=== PATIENT | male | born 1955 | race African-American/Black ===

== ENCOUNTER 2017-11-17 16:05 | Emergency (ER) | payer BC ==
[2017-11-17 16:21] VITALS: BP 151/101
--- NOTE | 2017-11-17 16:35 | ER Document Report ---
ED Medical Screen (RME) - General TRAVEL OUTSIDE OF THE [place] IN LAST 30 DAYS: No <IGNACIO PÉREZ - Last Filed: 11/17/17 16:34> <PRAVEENA LINDSEY V - Last Filed: 11/17/17 19:01> - General Chief Complaint: Head Injury without LOC Stated Complaint: HEAD INJURY Time Seen by Provider: 11/17/17 16:31 Notes: This 62-year-old male patient got EtOH intoxicated, fell onto concrete striking his right forehead. He has a crush laceration that needs cleaning and suturing. He is not on blood thinners by history. I have greeted and performed a rapid initial assessment of this patient. A comprehensive ED assessment and evaluation of the patient, analysis of test results and completion of the medical decision making process will be conducted by additional ED providers. (IGNACIO PÉREZ) 62-year-old with past medical history of alcohol abuse presented today for evaluation of a fall as well as closed head injury with notable right scalp laceration. Patient appears to be intoxicated. Patient is cooperative. Patient denies any vomiting, focal upper or lower extremity weakness, fevers or chills. Patient has notable scalp laceration with arterial bleeding. (PRAVEENA LINDSEY V) - Related Data Allergies/Adverse Reactions: No Known Allergies Allergy (Verified 11/17/17 16:06) Past Medical History - Immunizations Hx Diphtheria, Pertussis, Tetanus Vaccination: Yes <IGNACIO PÉREZ - Last Filed: 11/17/17 16:34> Review of Systems <IGNACIO PÉREZ - Last Filed: 11/17/17 16:34> <PRAVEENA LINDSEY V - Last Filed: 11/17/17 19:01> - Review of Systems Notes: Unable to obtain full review of systems secondary to patient's clinical intoxication Patient denied any vomiting fevers or chills,chest pain or shortness of breath ( PRAVEENA LINDSEY V) Physical Exam <IGNACIO PÉREZ - Last Filed: 11/17/17 16:34> <PRAVEENA LINDSEY V - Last Filed: 11/17/17 19:01> - Vital signs Vitals: Temp Pulse Resp BP Pulse Ox 97.7 F 105 H 20 151/101 H 96 11/17/17 16:18 11/17/17 16:18 11/17/17 16:18 11/17/17 16:18 11/17/17 16:18 - Notes Notes: Reviewed vital signs and nursing note as charted by RN. CONSTITUTIONAL: Alert HEAD: Normocephalic; patient has multiple superficial abrasions of his scalp, patient has 5 cm laceration localized to the right frontoparietal area, laceration is approximately 1 cm deep with arterial injury EYES: PERRL ENT: normal nose NECK: Supple without meningismus CARD: Regular rate and rhythm; no murmurs, no clicks, no rubs, no gallops; symmetric distal pulses RESP: Normal chest excursion without splinting or tachypnea; breath sounds clear and equal bilaterally ABD/GI: Normal bowel sounds; non-distended; soft, BACK: The back appears normal and is non-tender to palpation EXT: Normal ROM in all joints; non-tender to palpation; no cyanosis, no effusions, no edema SKIN: Normal color for age and race; warm; dry; good turgor; capillary refill < 2 seconds; no acute lesions noted NEURO: No focal deficits, patient able to move upper lower extremity bilaterally PSYCH: Smells of alcohol, appears to be intoxicated but appropriate (PRAVEENA LINDSEY V) Course <IGNACIO PÉREZ - Last Filed: 11/17/17 16:34> <PRAVEENA LINDSEY V - Last Filed: 11/17/17 19:01> - Re-evaluation Re-evalutation: Patient with acute alcohol intoxication as well as scalp laceration CT scan did not reveal any acute intracranial injury or subdural hematoma Patient refused tetanus shot, bleeding was controlled with Vicryl sutures Laceration was repaired with al, please see procedure note Patient was discharged with family and was given instructions to come back for staple removal (PRAVEENA LINDSEY V) - Vital Signs Vital signs: Temp Pulse Resp BP Pulse Ox 97.7 F 105 H 20 151/101 H 96 11/17/17 16:18 11/17/17 16:18 11/17/17 16:18 11/17/17 16:18 11/17/17 16:18 Procedures - Laceration/Wound Repair Right Head Time completed: 18:00 Wound length (cm): 5 Wound's Depth, Shape: Into muscle, Contused tissue Laceration pre-procedure: Sterile PPE donned, Chloraprep applied, Sterile drapes applied, Shur-Clens applied Anesthetic type: 1% Lidocaine w/epi Volume Anesthetic (mLs): 10 Wound explored: Clean, No foreign body removed Wound Debrided: Moderate Wound Repaired With: Sutures, [place] Number of Sutures: 7 Layer Closure?: Yes Deep Layer Suture Size/Type: 3:0, Other Post-procedure wound care: Sterile dressing applied Post-procedure NV exam normal: Yes - normal Complications: No <PRAVEENA LINDSEY V - Last Filed: 11/17/17 19:01> Doctor's Discharge <IGNACIO PÉREZ - Last Filed: 11/17/17 16:34> <PRAVEENA LINDSEY V - Last Filed: 11/17/17 19:01> - Discharge Clinical Impression: Alcohol intoxication, Closed head injury, Scalp laceration Condition: Stable Disposition: HOME, SELF-CARE Instructions: Laceration Care ([facility]) Additional Instructions: You have been diagnosed with closed head injury as well as laceration of your scalp You have sevenths al placed in your scalp, please come back in 7-10 days for staple removal You can apply antibiotic to the cut every day You can also wash your scalp with soap and water, do not soak it please Come back if you have worsening fevers, chills, nausea vomiting, severe headache Prescriptions: Bacitracin 1 applic TP DAILY PRN #1 pkg PRN Reason:
--- NOTE | 2017-11-17 16:58 | RADIOLOGY REPORT (SQ) ---
EXAM DESCRIPTION: CT HEAD WITHOUT COMPLETED DATE/TIME: 11/17/2017 4:47 pm REASON FOR STUDY: ETOH, fall, head contusion/laceration COMPARISON: April 2015 TECHNIQUE: Axial images acquired through the brain without intravenous contrast. Images reviewed wi th bone, brain and subdural windows. Additional sagittal and coronal reconstructions were generated. Images stored on PACS. All CT scanners at this facility use dose modulation, iterative reconstruction, and/or weight based d osing when appropriate to reduce radiation dose to as low as reasonably achievable (ALARA). [facility]: Dose Right [facility]: CareDose [facility]: Dose Right [facility]: Teradose 4D [facility]: [employer] RADIATION DOSE: CT Rad equipment meets quality standard of care and radiation dose reduction techniq ues were employed. CTDIvol: 67.0 mGy. DLP: 1182 mGy-cm. mGy. LIMITATIONS: None. FINDINGS: VENTRICLES: Normal size and contour. CEREBRUM: No masses. No hemorrhage. No midline shift. No evidence for acute infarction. Normal gra y/white matter differentiation. No areas of low density in the white matter. CEREBELLUM: No masses. No hemorrhage. No alteration of density. No evidence for acute infarction. EXTRAAXIAL SPACES: No fluid collections. No masses. ORBITS AND GLOBE: No intra- or extraconal masses. Normal contour of globe without masses. CALVARIUM: No fracture. PARANASAL SINUSES: No fluid or mucosal thickening. SOFT TISSUES: No mass or hematoma. OTHER: No other significant finding. IMPRESSION: NORMAL BRAIN CT WITHOUT CONTRAST. EVIDENCE OF ACUTE STROKE: NO. COMMENT: Quality ID # [id number]: Final reports with documentation of one or more dose reduction techniques (e.g., Automated exposure control, adjustment of the mA and/or kV according to patient size, use of iterative reconstruction technique) TECHNICAL DOCUMENTATION: JOB ID: [id number] [employer]- All Rights Reserved Reading location - IP/workstation name: [email or web address]
[2017-11-17] MEDS ORDERED: DIPH/PERTUSS(ACELL)/TETANUS VAC/PF 0.5 ML SYR (>=10YO) IM ONE (17:11)
[2017-11-17] MEDS ORDERED: LIDOCAINE 1%/EPINEPHRINE INJ 20 ML VIAL INJ ONE (17:25)
== END 2017-11-17 18:06 | disposition home or self-care (01) ==
LOC: ER 16:05
PROC: 0HQ0XZZ Repair Scalp Skin, External Approach (ICD-10-PCS; principal; 2017-11-17)
DX: S01.01XA Laceration without foreign body of scalp, initial encounter (principal); S09.90XA Unspecified injury of head, initial encounter; F10.120 Alcohol abuse with intoxication, uncomplicated; W19.XXXA Unspecified fall, initial encounter
CPT/HCPCS: 99283; 70450; 12002; J3490

== ENCOUNTER 2019-06-27 07:02 | Day surgery (SDC) | payer MEDICARE, BC ==
[~2019-06-27 07:02] MED LIST: FENTANYL CITRATE INJ/PF 100 MCG/2 ML AMPUL ONE; KETOROLAC TROMETHAMINE 0.45% 4 DROP/0.4 ML DROPERETTE OD PRN; MIDAZOLAM 2 MG/2 ML INJ ONE
[2019-06-27] MEDS ORDERED: EPINEPHRINE INJ/PF 1 MG/1 ML AMPULE ONE (07:09)
[2019-06-27] MEDS ORDERED: LIDOCAINE 1%/PHENYLEPHRINE 1.5% 1 ML VIAL ONE (07:09)
[2019-06-27] MEDS ORDERED: CHONDR SU A NA/HYALUR INTRAOC KIT (SURGICARE) ONE (07:09)
[2019-06-27] MEDS: TETRACAINE HCL 0.5% OPH SOLN 4 ML OD PRN ×3 (07:15→07:52)
[2019-06-27] MEDS: TROPICAMIDE 1% OPH SOLN 15 ML OD PRN ×3 (07:15→07:35)
[2019-06-27] MEDS: CYCLOPENTOLATE 0.2%/PHENYLEPHRINE 1% OPH SOLN 2 ML OD PRN ×3 (07:15→07:35)
[2019-06-27] MEDS: BESIFLOXACIN HCL 0.6% OPH SUSP 5 ML BOTTLE OD PRN ×4 (07:15→08:16)
[2019-06-27] MEDS: DORZOLAMIDE HCL 2%/TIMOLOL MALEAT 0.5% OPH SOLN 10 ML OD PRN ×2 (08:03→08:16)
--- NOTE | 2019-06-27 13:29 | Operative Report ---
Operative Report-[facility] Operative Report: DATE OF SURGERY: 06/27/2019 PREOPERATIVE DIAGNOSIS: Cataract, right eye POSTOPERATIVE DIAGNOSIS: Cataract, right eye OPERATION: Cataract extraction with insertion of an IOL of the right eye. Intraocular Lens Model: [23.0 sn60wf] Reason for surgery was difficulty seeing words on the television SURGEON: Lonnie Hoyt MD ANESTHESIA: Topical PROCEDURE: After obtaining appropriate consent, the patient's right eye was prepped and draped in a sterile fashion as well as the surgeon in the sterile manner and cataract surgery was started. First a paracentesis blade was used to make a side-port incision. Viscoelastic was used to inflate the anterior chamber. Next a 2.4 mm incision was made with a 2.4 mm blade, clear corneal temporarily. A continuous capsulorrhexis was made using a cystotome and Utrata forceps. Following this hydrodissection was carried out to make the kam fully loose and mobile and it was rotated. Following this, a divide and conquer technique was used to phacoemulsify the kam. The remaining cortex was removed with an irrigation/aspiration. Provisc was instilled into the capsular bag to inflate the bag. The intraocular lens was placed. The remaining viscoelastic material was removed with irrigation/aspiration. Following this, the incision was found to be watertight. Besivance and Cosopt was instilled into the eye and a protective shield was placed over the eye. The patient was reurned to the postoperative recovery in a stable condition.
== END 2019-06-27 08:58 | disposition home or self-care (01) ==
LOC: SC 07:02
PROVIDERS: ATTEND Internal Medicine
DX: H25.811 Combined forms of age-related cataract, right eye (principal); H40.1113 Primary open-angle glaucoma, right eye, severe stage; H44.512 Absolute glaucoma, left eye; H52.4 Presbyopia; E78.00 Pure hypercholesterolemia, unspecified; E03.9 Hypothyroidism, unspecified
CPT/HCPCS: 66984; 00142; V2632; J2250; J3490 ×2; A9270; J0171; J3010; J2370; 142

== ENCOUNTER 2019-12-23 11:48 | Inpatient (IN) | payer MEDICARE, BC ==
[2019-12-23] MEDS ORDERED: LORAZEPAM INJ 2 MG/1 ML VIAL IV ONE ×2 (12:03→16:42)
[2019-12-23 12:05] LABS: ABSOLUTE BASOPHILS # (AUTO) 0.1 10^3/uL (0.0-0.2); ABSOLUTE EOSINOPHILS # (AUTO) 0.2 10^3/uL (0.0-0.6); ABSOLUTE LYMPHOCYTES (AUTO) 5.6 10^3/uL (0.5-4.7); ABSOLUTE MONOCYTES (AUTO) 0.9 10^3/uL (0.1-1.4); ABSOLUTE NEUT (AUTO) 6.4 10^3/uL (1.7-8.2); BASOPHILS % (AUTO) 0.5 % (0-2); EOSINOPHILS % (AUTO) 1.7 % (0-6); HEMOGLOBIN 15.5 g/dL (13.5-17.0); LYMPHOCYTES % (AUTO) 42.4 % (13-45); MEAN CORPUSCULAR HGB CONC 33.7 g/dL (32.0-36.0); MEAN CORPUSCULAR VOLUME 101 fl (80-97); MONOCYTES % (AUTO) 6.6 % (3-13); PLATELET COUNT 218 10^3/uL (150-450); RED BLOOD COUNT 4.55 10^6/uL (4.35-5.55); RED CELL DISTRIBUTION WIDTH 16.3 % (11.5-14.0); SEGMENTED NEUTROPHILS % (AUTO) 48.8 % (42-78); TOTAL CELLS COUNTED % (AUTO) 100 %; WHITE BLOOD COUNT 13.1 10^3/uL (4.0-10.5)
[2019-12-23 12:25] LABS: ALBUMIN 4.8 g/dL (3.5-5.0); ALKALINE PHOSPHATASE 146 U/L (38-126); ASPARTATE AMINO TRANSFERASE 203 U/L (17-59); BILIRUBIN,DIRECT 0.2 mg/dL (0.0-0.4); BLOOD UREA NITROGEN 9 mg/dL (7-20); CALCIUM 9.8 mg/dL (8.4-10.2); GLUCOSE 108 mg/dL (75-110); TOTAL PROTEIN 8.7 g/dL (6.3-8.2)
[2019-12-23 12:29] LABS: CARBON DIOXIDE 14 mmol/L (22-30); CHLORIDE 103 mmol/L (98-107)
[2019-12-23] MEDS ORDERED: NORMAL SALINE 500 ML IV ONE (12:32)
[2019-12-23 12:33] LABS: ALCOHOL < 10 mg/dL (NONE DETECTED)
--- NOTE | 2019-12-23 12:39 | RADIOLOGY REPORT (SQ) ---
EXAM DESCRIPTION: CT HEAD WITHOUT IMAGES COMPLETED DATE/TIME: 12/23/2019 12:29 pm REASON FOR STUDY: Seizure COMPARISON: 11/17/2017 TECHNIQUE: Axial images acquired through the brain without intravenous contrast. Images reviewed wi th bone, brain and subdural windows. Additional sagittal and coronal reconstructions were generated. Images stored on PACS. All CT scanners at this facility use dose modulation, iterative reconstruction, and/or weight based d osing when appropriate to reduce radiation dose to as low as reasonably achievable (ALARA). [facility]: Dose Right [facility]: CareDose [facility]: Dose Right [facility]: Teradose 4D [facility]: [employer] RADIATION DOSE: CT Rad equipment meets quality standard of care and radiation dose reduction techniq ues were employed. CTDIvol: 53.2 mGy. DLP: 1097 mGy-cm. mGy. LIMITATIONS: None. FINDINGS: VENTRICLES: Normal size and contour. CEREBRUM: No masses. No hemorrhage. No midline shift. No evidence for acute infarction. Normal gra y/white matter differentiation. No areas of low density in the white matter. CEREBELLUM: No masses. No hemorrhage. No alteration of density. No evidence for acute infarction. EXTRAAXIAL SPACES: No fluid collections. No masses. ORBITS AND GLOBE: No intra- or extraconal masses. Normal contour of globe without masses. CALVARIUM: No fracture. PARANASAL SINUSES: No fluid or mucosal thickening. SOFT TISSUES: No mass or hematoma. OTHER: No other significant finding. IMPRESSION: NORMAL BRAIN CT WITHOUT CONTRAST. EVIDENCE OF ACUTE STROKE: NO. COMMENT: Quality ID # [id number]: Final reports with documentation of one or more dose reduction techniques (e.g., Automated exposure control, adjustment of the mA and/or kV according to patient size, use of iterative reconstruction technique) TECHNICAL DOCUMENTATION: JOB ID: [id number] 2010 [employer]- All Rights Reserved Reading location - IP/workstation name: [email or web address]
[2019-12-23 12:53] LABS: ANION GAP 25 (5-19)
--- NOTE | 2019-12-23 13:53 | ER Document Report ---
ED General - General Mode of Arrival: Medic Information source: Relative TRAVEL OUTSIDE OF THE [place] IN LAST 30 DAYS: No <SUNI VALDIVIA - Last Filed: 12/23/19 14:48> <DIONISIOZAYCARMELA - Last Filed: 12/23/19 16:54> - General Chief Complaint: Seizure Stated Complaint: POSSIBLE SEIZURE Primary Care Provider: NILTON SARKAR MD [Primary Care Provider] - Follow up as needed Notes: 64-year-old man presents to the emergency department with a history of riding in the car with his daughter this morning, according to her he stared and then became poorly responsive would not answer her questions and had episode of what appeared to be a seizure. She notes that his eyes was rolled back in his head his teeth were clenched and he had some shaking. No history of seizure disorder, apparently has been a heavy drinker according to the daughter. Upon presentation to the emergency department he was confused and uncooperative. (SUNI VALDIVIA) - Related Data Allergies/Adverse Reactions: No Known Allergies Allergy (Verified 11/17/17 16:06) Past Medical History - Social History Smoking Status: Former Smoker Chew tobacco use (# tins/day): No Frequency of alcohol use: Social Drug Abuse: None Family History: Reviewed & Not Pertinent Patient has homicidal ideation: No - Past Medical History Cardiac Medical History: Denies: Hx Heart Attack, Hx Hypertension Pulmonary Medical History: Denies: Hx Asthma Neurological Medical History: Denies: Hx Cerebrovascular Accident, Hx Seizures Renal/ Medical History: Denies: Hx Peritoneal Dialysis GI Medical History: Denies: Hx Hepatitis, Hx Hiatal Hernia, Hx Ulcer Infectious Medical History: Denies: Hx Hepatitis Past Surgical History: Denies: Hx Open Heart Surgery, Hx Pacemaker - Immunizations Hx Diphtheria, Pertussis, Tetanus Vaccination: Yes <SUNI VALDIVIA - Last Filed: 12/23/19 14:48> Review of Systems <SUNI VALDIVIA - Last Filed: 12/23/19 14:48> - Review of Systems Notes: Constitutional: Denies pain. HENT: Negative for sore throat. Eyes: Negative for visual changes. Cardiovascular: Negative for chest pain. Respiratory: Negative for shortness of breath. Gastrointestinal: Negative for abdominal pain, vomiting or diarrhea. Genitourinary: Negative for dysuria. Musculoskeletal: Negative for back pain. Skin: Negative for rash. Neurological: Negative for headaches, weakness or numbness. 10 point ROS negative except as marked above and in HPI. (SUNI VALDIVIA) Physical Exam <SUNI VALDIVIA - Last Filed: 12/23/19 14:48> - Vital signs Vitals: Resp Pulse Ox 18 99 12/23/19 11:52 12/23/19 11:52 - Notes Notes: PHYSICAL EXAMINATION: Physical Exam: General: Well-nourished well-developed 64-year-old man in no acute distress HEENT: NC/AT, pupils equal round and reactive to light, MM moist,nares clear, oropharynx clear, airway patent Neck: supple, no adenopathy, no masses. Good range of motion Lungs: clear, no wheezing, no rales no rhonchi CVS: Tachycardic r rate and rhythm no murmur gallop or rub Abdomen: Soft, active, nontender, no masses, no hepatosplenomegaly Ext: No edema, clubbing or cyanosis. Neuro: Alert and responsive, moving all 4 extremities on command, cranial nerves intact, no focal findings, some confusion (unable to name the president) Skin: Intact no open lesions, no rash PSYCH: Normal mood, normal affect. (SUNI VALDIVIA) Course - Laboratory Result Diagrams: 12/23/19 11:50 12/23/19 11:50 - Diagnostic Test Radiology reviewed: Image reviewed, Reports reviewed - CT scan of the head noncontrast: No acute intracranial findings. - EKG Interpretation by Ma EKG shows normal: Sinus rhythm - Sinus tachycardia with a left axis deviation, no acute ST or T wave abnormalities noted. <SUNI VALDIVIA - Last Filed: 12/23/19 14:48> - Laboratory Result Diagrams: 12/23/19 11:50 12/23/19 11:50 <CARMELA MCNULTY - Last Filed: 12/23/19 16:54> - Re-evaluation Re-evalutation: 12/23/19 14:49 Patient has improved and much more alert and responsive, states that he wants to eat. Still a little unsteady on his feet however significantly improved, cerebellar testing normal. I discussed the patient with the daughter on a second occasion and mentioned that this may be alcohol withdrawal related seizures. She does not feel that he could manage medications and will drink while taking them. I have explained to her that he may be sent home if everything is negative and he is back to his baseline. (SUNI VALDIVIA) 12/23/19 16:52 Patient seen and examined. Care of this patient was turned over to me by Dr. Valdivia. In short, the patient had a seizure. He is continued to be confused. The patient is cooperative, but very confused. He is oriented to place and time, but still remains confused, uses inappropriate words, does not recognize visual stimuli easily. Patient was given further Ativan, he remains hypertensive and tachycardic. I strongly suspect on alcohol withdrawal related seizure. He has not returned to baseline. I spoke with Dr. Ramey, she will admit the patient for further care. (CARMELA MCNULTY) - Vital Signs Vital signs: Temp Pulse Resp BP Pulse Ox 98.8 F 22 H 169/94 H 98 12/23/19 12:00 12/23/19 16:01 12/23/19 16:01 12/23/19 14:01 - Laboratory Laboratory results interpreted by pa: 12/23/19 12/23/19 12/23/19 11:45 11:50 11:50 WBC 13.1 H MCV 101 H MCH 34.0 H RDW 16.3 H Absolute Lymphs (auto) 5.6 H Carbon Dioxide 14 L Anion Gap 25 H POC Glucose 118 H AST 203 H ALT 75 H Alkaline Phosphatase 146 H Total Protein 8.7 H Urine Protein Urine Ketones Urine Ascorbic Acid 12/23/19 13:51 WBC MCV MCH RDW Absolute Lymphs (auto) Carbon Dioxide Anion Gap POC Glucose AST ALT Alkaline Phosphatase Total Protein Urine Protein 100 H Urine Ketones 20 H Urine Ascorbic Acid 40 H 12/23/19 13:55 I have reviewed laboratory data and used this information for the treatment decisions regarding the patient. (SUNI VALDIVIA) - Diagnostic Test Radiology results interpreted by me: 12/23/19 16:[address] 12/23/19 11:51 IMPRESSION: NORMAL BRAIN CT WITHOUT CONTRAST. EVIDENCE OF ACUTE STROKE: NO. (CARMELA MCNULTY) Discharge <SUNI VALDIVIA - Last Filed: 12/23/19 14:48> - Discharge Admitting Provider: Karoline (Hospitalist) Unit Admitted: [facility] <FRIES,LUNDYN M - Last Filed: 12/23/19 16:54> - Discharge Clinical Impression: Seizure Alcohol dependence Qualifiers: Complication of substance-induced condition: with unspecified complication Altered mental status Qualifiers: Coma depth: Letty coma 13-15 Condition: Stable Disposition: ADMITTED INPATIENT Referrals: NILTON SARKAR MD [Primary Care Provider] - Follow up as needed
--- NOTE | 2019-12-23 14:19 | EKG REPORT ---
SEVERITY:- OTHERWISE NORMAL ECG - SINUS TACHYCARDIA LEFT AXIS DEVIATION : Confirmed by: Sharita Jarvis MD 23-Dec-2019 14:19:02
[2019-12-23 14:33] LABS: APPEARANCE,URINE SLIGHTLY-CLOUDY; BILIRUBIN,URINE NEGATIVE (NEGATIVE); COLOR,URINE AMBER; GLUCOSE, URINE NEGATIVE (NEGATIVE); KETONES,URINE 20 mg/dL (NEGATIVE); LEUKOCYTE ESTERASE,URINE NEGATIVE (NEGATIVE); NITRITE,URINE NEGATIVE (NEGATIVE); PROTEIN,URINE 100 mg/dL (NEGATIVE); URINE SPECIFIC GRAVITY 1.021; UROBILINOGEN,URINE NEGATIVE mg/dL (<2.0)
[2019-12-23] MEDS ORDERED: NORMAL SALINE 1000 ML 1,000 ML IV ONE (14:53)
[2019-12-23 15:26] LABS: URINE AMPHETAMINES SCREEN NEGATIVE; URINE BARBITURATES SCREEN NEGATIVE; URINE BENZODIAZEPINES SCREEN NEGATIVE; URINE COCAINE SCREEN NEGATIVE; URINE MARIJUANA (THC) SCREEN NEGATIVE; URINE METHADONE SCREEN NEGATIVE; URINE PHENCYCLIDINE SCREEN NEGATIVE
[2019-12-23] MEDS ORDERED: IPRATROPIUM/ALBUTEROL 0.5-2.5 MG/3 ML AMPUL NEB PRN (17:36)
[2019-12-23] MEDS ORDERED: NORMAL SALINE 1000 ML 1,000 ML IV PRN (17:36)
[2019-12-23] MEDS ORDERED: ACETAMINOPHEN 325 MG TABLET PO PRN (17:36)
[2019-12-23] MEDS ORDERED: ONDANSETRON 4 MG TAB.RAPDIS PO PRN (17:36)
[2019-12-23] MEDS ORDERED: OXYCODONE-ACETAMINOPHEN 5-325 MG TABLET PO PRN (17:36)
--- NOTE | 2019-12-23 17:36 | PDOC H&P ---
History of Present Illness Admission Date/PCP: NILTON SARKAR MD Patient complains of: Patient brought to the emergency room apparently after becoming poorly responsive with questionable seizure. This allegedly alcohol in the car today. The daughter described his as patient shaking and eyes rolled back with teeth chattering. History of Present Illness: LIBRA ALTAMIRANO is a 64 year old male Please note this information is obtained from the computer records, ED physician's note. Patient is unable to provide any history as he is confused and confabulating stories. He is unable to tell me why he is here in fact is unable to tell me where he is. He thought he was in his living room in the [place] and then he thought he was in his sister's house in [place] so it appears patient is originally from [place]. He however has been living here it appears for about 20 years as he told me later. 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 There is a history of alcohol abuse although he tells me that he only drinks 2 bottles of Bulls? Daily. Patient remains confused but I wonder if he has alcohol-related encephalopathy like Wernicke's encephalopathy. Been admitted for seizures however this was not witnessed by anyone so far Past Medical History Cardiac Medical History: Denies: Myocardial Infarction, Hypertension Pulmonary Medical History: Denies: Asthma Neurological Medical History: Denies: Seizures GI Medical History: Denies: Hepatitis, Hiatal Hernia Hematology: Denies: Anemia, Sickle Cell Disease Past Surgical History Past Surgical History: Denies: Pacemaker Social History Information Source: [facility] Records Smoking Status: Former Smoker Electronic Cigarette use?: No Frequency of Alcohol Use: Heavy - Advance Directive Resuscitation Status: Full Code Family History Family History: Reviewed & Not Pertinent Parental Family History Reviewed: No Children Family History Reviewed: No Sibling(s) Family History Reviewed.: No - Unable to provide any information Medication/Allergy Home Medications: Atorvastatin Calcium [Lipitor 40 mg Tablet] 40 mg PO QHS 06/24/19 Brinzolamide/Brimonidine Tart [Simbrinza 1%-0.2% Eye Drops] 1 drop OP TID 06/24/19 Ketorolac Tromethamine 0.45% [Acuvail 0.45% Oph Soln 0.4 ml/Dropperette] 1 drop OU BID 06/24/19 Levothyroxine Sodium [Tirosint-Analia] 50 mcg PO DAILY 06/24/19 Moxifloxacin HCl [Vigamox 0.5% Oph Soln 3 ml] 1 drop OP ASDIR PRN 06/24/19 Prednisolone Acetate [Pred Forte] 1 ml OP ASDIR PRN 06/24/19 Allergies/Adverse Reactions: No Known Allergies Allergy (Verified 11/17/17 16:06) Review of Systems ROS unobtainable: Due to mental status Physical Exam Vital Signs: Temp Pulse Resp BP Pulse Ox 98.8 F 22 H 169/94 H 98 12/23/19 12:00 12/23/19 16:01 12/23/19 16:01 12/23/19 14:01 Intake & Output 12/22/19 12/23/19 12/24/19 06:59 06:59 06:59 Intake Total 1500 Output Total 50 Balance 1450 Weight 73.6 kg General appearance: PRESENT: no acute distress, well-developed, well-nourished Head exam: PRESENT: atraumatic, normocephalic Eye exam: PRESENT: conjunctiva pink. ABSENT: scleral icterus Mouth exam: PRESENT: tongue midline Neck exam: ABSENT: carotid bruit, JVD, lymphadenopathy, thyromegaly Respiratory exam: PRESENT: clear to auscultation edwin. ABSENT: rales, rhonchi, wheezes Cardiovascular exam: PRESENT: +S1, +S2, tachycardia. ABSENT: diastolic murmur, rubs, systolic murmur Pulses: PRESENT: normal dorsalis pedis pul Vascular exam: PRESENT: normal capillary refill GI/Abdominal exam: PRESENT: normal bowel sounds, soft. ABSENT: distended, guarding, mass, organolmegaly, rebound, tenderness Rectal exam: PRESENT: deferred Extremities exam: PRESENT: full ROM. ABSENT: calf tenderness, clubbing, pedal edema Neurological exam: PRESENT: alert, awake. ABSENT: motor sensory deficit Psychiatric exam: PRESENT: appropriate affect. ABSENT: homicidal ideation, suicidal ideation Focused psych exam: PRESENT: flight of ideas Skin exam: PRESENT: dry, intact, warm. ABSENT: cyanosis, rash Results Laboratory Results: 12/23/19 11:50 12/23/19 11:50 12/23/19 12/23/19 12/23/19 11:50 11:50 13:51 WBC 13.1 H RBC 4.55 Hgb 15.5 Hct 46.0 MCV 101 H MCH 34.0 H MCHC 33.7 RDW 16.3 H Plt Count 218 Seg Neutrophils % 48.8 Sodium 142.1 Potassium 4.0 Chloride 103 Carbon Dioxide 14 L Anion Gap 25 H BUN 9 Creatinine 0.95 Est GFR ( Amer) > 60 Glucose 108 Calcium 9.8 Magnesium 1.8 Total Bilirubin 1.0 AST 203 H Alkaline Phosphatase 146 H Total Protein 8.7 H Albumin 4.8 Urine Color ESSENCE Urine Appearance SLIGHTLY-CLOUDY Urine pH 5.0 Ur Specific [place] 1.021 Urine Protein 100 H Urine Glucose (UA) NEGATIVE Urine Ketones 20 H Urine Blood NEGATIVE Urine Nitrite NEGATIVE Ur Leukocyte Esterase NEGATIVE Urine WBC (Auto) 1 Urine RBC (Auto) 1 Impressions: Head CT 12/23/19 11:51 IMPRESSION: NORMAL BRAIN CT WITHOUT CONTRAST. EVIDENCE OF ACUTE STROKE: NO. Assessment and Plan - Diagnosis (1) Encephalopathy Is this a current diagnosis for this admission?: Yes Plan: This seems likely chronic to me. Will have to wait and see if patient mental status improves. It is very possible that he has an alcohol-related encephalopathy. CT scan of the brain reveals no acute findings (2) Alcohol dependence Qualifiers: Complication of substance-induced condition: with unspecified complication Is this a current diagnosis for this admission?: Yes Plan: Apparently this is an ongoing issue. Amount of alcohol use cannot be quantified at this time. Patient will be placed on alcohol withdrawal protocol. Ordered B12 and folic acid (3) Seizure Is this a current diagnosis for this admission?: Yes Plan: An EEG will be ordered. Patient will be placed on seizure precautions. No seizure has been noted in the hospital so far (4) Tachycardia Is this a current diagnosis for this admission?: Yes Plan: Precise etiology is unclear - Plan Summary Summary: Patient also does have a leukocytosis, precise etiology unclear as I see no abdullahi dence of an acute infection however this could be an acute phase reactant. Will recheck CBC in a.m. In addition he does have microcytic indices which is consistent with his alcohol abuse history Patient also is acidotic which to be consistent with seizures as well as alcohol abuse. Interestingly his sodium is 142 and magnesium is 1.8. He does have abnormal liver function test, mostly transaminitis also consistent with alcohol use. Will recheck in a.m. and if needed further imaging studies can be obtained. Chest x-ray, CT scan of the brain and urinalysis showed no evidence of any acute infection. Will defer starting any antibiotics at this time - Time Time Spent with patient: 25-34 minutes Anticipated discharge: Home
[2019-12-23] MEDS ORDERED: LORAZEPAM INJ 2 MG/1 ML VIAL IV PRN (17:43)
[2019-12-23] MEDS: FAMOTIDINE 20 MG TABLET PO SCH (21:55)
[2019-12-23] MEDS: FOLIC ACID 1 MG TABLET PO SCH (21:55)
[2019-12-24 06:38] LABS: HEMATOCRIT 37.6 % (37.9-51.0); MEAN CORPUSCULAR HEMOGLOBIN 34.2 pg (27.0-33.4); MEAN CORPUSCULAR VOLUME 98 fl (80-97); PLATELET COUNT 124 10^3/uL (150-450); RED BLOOD COUNT 3.84 10^6/uL (4.35-5.55); RED CELL DISTRIBUTION WIDTH 15.7 % (11.5-14.0)
[2019-12-24 06:43] LABS: HEMOGLOBIN 13.2 g/dL (13.5-17.0)
[2019-12-24 06:56] LABS: ALBUMIN 3.5 g/dL (3.5-5.0); ALKALINE PHOSPHATASE 99 U/L (38-126); ASPARTATE AMINO TRANSFERASE 108 U/L (17-59); BILIRUBIN,TOTAL 0.8 mg/dL (0.2-1.3); BLOOD UREA NITROGEN 4 mg/dL (7-20); CALCIUM 8.4 mg/dL (8.4-10.2); CHLORIDE 102 mmol/L (98-107); GLUCOSE 124 mg/dL (75-110); PHOSPHORUS 2.4 mg/dL (2.5-4.5); POTASSIUM 3.1 mmol/L (3.6-5.0); TOTAL PROTEIN 6.5 g/dL (6.3-8.2)
[2019-12-24 07:16] LABS: ANION GAP 8 (5-19)
[2019-12-24 07:25] LABS: CARBON DIOXIDE 27 mmol/L (22-30)
[2019-12-24] MEDS ORDERED: MULTIVITAMIN TABLET PO SCH (10:00)
[2019-12-24] MEDS ORDERED: DOCUSATE SODIUM 100 MG CAPSULE PO SCH (10:00)
[2019-12-24] MEDS ORDERED: ENOXAPARIN SODIUM INJ 40 MG/0.4 ML DISP.SYRIN SUBCUT SCH (10:00)
[2019-12-24] MEDS ORDERED: THIAMINE HCL 100 MG TABLET PO SCH (10:00)
[2019-12-24] MEDS: FAMOTIDINE 20 MG TABLET PO SCH (12:09)
[2019-12-24] MEDS: FOLIC ACID 1 MG TABLET PO SCH (12:09)
[2019-12-24 12:14] VITALS: BP 145/86
--- NOTE | 2019-12-24 13:02 | PDOC DISCHARGE SUMMARY ---
Impression - Admit/DC Date/PCP Admission Date/Primary Care Provider: 12/23/19 17:59 NILTON SARKAR MD Discharge Date: 12/24/19 - Discharge Diagnosis (1) Encephalopathy Is this a current diagnosis for this admission?: Yes (2) Seizure Is this a current diagnosis for this admission?: Yes (3) Alcohol dependence Is this a current diagnosis for this admission?: Yes (4) Tachycardia Is this a current diagnosis for this admission?: Yes (5) Transaminitis Is this a current diagnosis for this admission?: Yes - Additional Information Resuscitation Status: Full Code Discharge Diet: As Tolerated Discharge Activity: Activity As Tolerated Referrals: NILTON SARKAR MD [Primary Care Provider] - Follow up as needed Prescriptions: Folic Acid [Folvite 1 mg Tablet] 1 mg PO DAILY #30 tablet Thiamine HCl [Thiamine 100 mg Tablet] 100 mg PO DAILY #30 tablet Home Medications: Atorvastatin Calcium [Lipitor 40 mg Tablet] 40 mg PO QAM 06/24/19 Bimatoprost [Lumigan 0.01% Oph Soln 2.5 ml/Bottle] 1 drop OU QPM 12/23/19 Dorzolamide HCl/Timolol Maleat [Cosopt Eye Drops] 1 drop OS Q48H 12/23/19 Latanoprost [Xalatan 0.005% Oph Soln 2.5 ml] 1 drop OU QAM 12/23/19 Levothyroxine Sodium 100 mcg PO Q6AM 12/23/19 Multivitamin [Multiple Vitamins] 1 tab PO DAILY 12/23/19 Folic Acid [Folvite 1 mg Tablet] 1 mg PO DAILY #30 tablet 12/24/19 Thiamine HCl [Thiamine 100 mg Tablet] 100 mg PO DAILY #30 tablet 12/24/19 History of Present Illiness History of Present Illness: According to admitting provider: LIBRA ALTAMIRANO is a 64 year old male Please note this information is obtained from the computer records, ED physician's note. Patient is unable to provide any history as he is confused and confabulating stories. He is unable to tell me why he is here in fact is unable to tell me where he is. He thought he was in his living room in the [place] and then he thought he was in his sister's house in [place] so it appears patient is originally from [place]. He however has been living here it appears for about 20 years as he told me later. 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 There is a history of alcohol abuse although he tells me that he only drinks 2 bottles of Bulls? Daily. Patient remains confused but I wonder if he has alcohol-related encephalopathy like Wernicke's encephalopathy. Been admitted for seizures however this was not witnessed by anyone so far Hospital Course Hospital Course: Patient was admitted to the hospital after experiencing what sounds like a seizure while in his daughter's car. In the ER, patient was noted to be confused. On conversation today, patient states that he last remembers being brought to the hospital and wondering why he was there. Denies recollection of the entire episode which point was seizure. On admission, blood work revealed mild leukocytosis which has resolved today. Also noted macrocytosis, elevated anion gap but no other significant electrolyte abnormalities to explain his seizure. Toxicology was negative and serum alcohol level was negative. Head CT scan was also unremarkable. EEG was performed which was normal. Today on examination, patient does not show any evidence whatsoever of alcohol withdrawal despite his history of alcohol use and his neuro exam is back to his baseline. The etiology of his seizure is unknown. As this is patient's first time and there is no residual new neurological deficits on exam and no findings of structural etiology with negative EEG, no AED prophylaxis is indicated at this time. Patient has been cautioned to avoid driving or operation of heavy machinery. Patient has been urged to follow-up with a neurologist upon discharge. Patient also started on thiamine and folic acid supplements. Physical Exam Vital Signs: Temp Pulse Resp BP Pulse Ox 97.9 F 84 16 145/86 H 98 12/24/19 12:13 12/24/19 12:13 12/24/19 12:13 12/24/19 12:13 12/24/19 12:13 Intake & Output 12/23/19 12/24/19 12/25/19 06:59 06:59 06:59 Intake Total 1720 Output Total 675 Balance 1045 Weight 71.3 kg General appearance: PRESENT: no acute distress, cooperative Eye exam: PRESENT: other - Blind Respiratory exam: PRESENT: unlabored Cardiovascular exam: PRESENT: +S1, +S2 Neurological exam: PRESENT: alert, awake, oriented to person, oriented to place, oriented to time, oriented to situation Results Laboratory Results: WBC 6.0 10^3/uL (4.0-10.5) 12/24/19 06:04 RBC 3.84 10^6/uL (4.35-5.55) L 12/24/19 06:04 Hgb 13.2 g/dL (13.5-17.0) L D 12/24/19 06:04 Hct 37.6 % (37.9-51.0) L 12/24/19 06:04 MCV 98 fl (80-97) H 12/24/19 06:04 MCH 34.2 pg (27.0-33.4) H 12/24/19 06:04 MCHC 35.0 g/dL (32.0-36.0) 12/24/19 06:04 RDW 15.7 % (11.5-14.0) H 12/24/19 06:04 Plt Count 124 10^3/uL (150-450) L 12/24/19 06:04 Lymph % (Auto) 42.4 % (13-45) 12/23/19 11:50 [place] % (Auto) 6.6 % (3-13) 12/23/19 11:50 Eos % (Auto) 1.7 % (0-6) 12/23/19 11:50 Baso % (Auto) 0.5 % (0-2) 12/23/19 11:50 Absolute Neuts (auto) 6.4 10^3/uL (1.7-8.2) 12/23/19 11:50 Absolute Lymphs (auto) 5.6 10^3/uL (0.5-4.7) H 12/23/19 11:50 Absolute Monos (auto) 0.9 10^3/uL (0.1-1.4) 12/23/19 11:50 Absolute Eos (auto) 0.2 10^3/uL (0.0-0.6) 12/23/19 11:50 Absolute Basos (auto) 0.1 10^3/uL (0.0-0.2) 12/23/19 11:50 Seg Neutrophils % 48.8 % (42-78) 12/23/19 11:50 Sodium 136.7 mmol/L (137-145) L 12/24/19 06:04 Potassium 3.1 mmol/L (3.6-5.0) L 12/24/19 06:04 Chloride 102 mmol/L (98-107) 12/24/19 06:04 Carbon Dioxide 27 mmol/L (22-30) D 12/24/19 06:04 Anion Gap 8 (5-19) 12/24/19 06:04 BUN 4 mg/dL (7-20) L 12/24/19 06:04 Creatinine 0.69 mg/dL (0.52-1.25) 12/24/19 06:04 Est GFR ( Amer) > 60 (>60) 12/24/19 06:04 Est GFR (MDRD) Non-Af > 60 (>60) 12/24/19 06:04 Glucose 124 mg/dL (75-110) H 12/24/19 06:04 POC Glucose 118 mg/dL (70-110) H 12/23/19 11:45 Calcium 8.4 mg/dL (8.4-10.2) 12/24/19 06:04 Phosphorus 2.4 mg/dL (2.5-4.5) L 12/24/19 06:04 Magnesium 1.8 mg/dL (1.6-2.3) 12/23/19 11:50 Total Bilirubin 0.8 mg/dL (0.2-1.3) 12/24/19 06:04 Direct Bilirubin 0.0 mg/dL (0.0-0.4) 12/24/19 06:04 Neonat Total Bilirubin Not Reportable 12/24/19 06:04 Neonat Direct Bilirubin Not Reportable 12/24/19 06:04 Neonat Indirect Bili Not Reportable 12/24/19 06:04 AST 108 U/L (17-59) H 12/24/19 06:04 ALT 53 U/L (<50) H 12/24/19 06:04 Alkaline Phosphatase 99 U/L (38-126) 12/24/19 06:04 Total Protein 6.5 g/dL (6.3-8.2) 12/24/19 06:04 Albumin 3.5 g/dL (3.5-5.0) 12/24/19 06:04 TSH 0.17 uIU/mL (0.47-4.68) L 12/23/19 11:50 Urine Color ESSENCE 12/23/19 13:51 Urine Appearance SLIGHTLY-CLOUDY 12/23/19 13:51 Urine pH 5.0 (5.0-9.0) 12/23/19 13:51 Ur Specific [place] 1.021 12/23/19 13:51 Urine Protein 100 mg/dL (NEGATIVE) H 12/23/19 13:51 Urine Glucose (UA) NEGATIVE mg/dL (NEGATIVE) 12/23/19 13:51 Urine Ketones 20 mg/dL (NEGATIVE) H 12/23/19 13:51 Urine Blood NEGATIVE (NEGATIVE) 12/23/19 13:51 Urine Nitrite NEGATIVE (NEGATIVE) 12/23/19 13:51 Urine Bilirubin NEGATIVE (NEGATIVE) 12/23/19 13:51 Urine Urobilinogen NEGATIVE mg/dL (<2.0) 12/23/19 13:51 Ur Leukocyte Esterase NEGATIVE (NEGATIVE) 12/23/19 13:51 Urine WBC (Auto) 1 /HPF 12/23/19 13:51 Urine RBC (Auto) 1 /HPF 12/23/19 13:51 U Hyaline Cast (Auto) 30 /LPF 12/23/19 13:51 Urine Bacteria (Auto) TRACE /HPF 12/23/19 13:51 Squamous Epi Cells Auto 1 /HPF 12/23/19 13:51 Urine Mucus (Auto) MOD /LPF 12/23/19 13:51 Urine Ascorbic Acid 40 (NEGATIVE) H 12/23/19 13:51 Urine Opiates Screen NEGATIVE 12/23/19 13:51 Urine Methadone Screen NEGATIVE 12/23/19 13:51 Ur Barbiturates Screen NEGATIVE 12/23/19 13:51 Ur Phencyclidine Scrn NEGATIVE 12/23/19 13:51 Ur Amphetamines Screen NEGATIVE 12/23/19 13:51 U Benzodiazepines Scrn NEGATIVE 12/23/19 13:51 Urine Cocaine Screen NEGATIVE 12/23/19 13:51 U Marijuana (THC) Screen NEGATIVE 12/23/19 13:51 Serum Alcohol < 10 mg/dL (NONE DETECTED) 12/23/19 11:50 Impressions: Head CT 12/23/19 11:51 IMPRESSION: NORMAL BRAIN CT WITHOUT CONTRAST. EVIDENCE OF ACUTE STROKE: NO. Plan Time Spent: Greater than 30 Minutes Stroke Is this a Stroke Patient?: No Acute Heart Failure - Is this a Heart Failure Patient?: No
--- NOTE | 2019-12-24 15:20 | NEURO WORKBENCH EEG REPORT ---
EEG Report Patient: Shivam Casarez ID: [id number] Referring Doctor: Katiuska Ramey Date: 12/24/2019 Reason for study: Evaluate Epileptiform activity Medications: Colace, Lovenox, Famotidine, Thiamine, Ativan prn History: This is a 64 year old male with a history of thyroid disease, glaucoma, and possible seizure. This EEG was requested for evaluation of epileptiform activity. EEG Interpretation: This EEG was recorded during wakefulness and the majority of the EEG is dominated by eye blink artifact and frontally predominant myogenic artifact. There is no apparent posterior dominant rhythm. Photic stimulation resulted in appreciable photic driving, and there was no epileptiform activity elicited with photic stimulation. There was no sleep recorded. There were no epileptiform abnormalities (no sharp waves and no spikes). There were no seizures. The EKG showed a regular rhythm with typically 70-90 beats per minute. EEG Impression: This EEG is within normal limits for age given the clinical state of consciousness of the patient. There was no epileptiform activity or any seizures. However, this EEG is limited due to the lack of relaxed wakefulness recorded and the lack of sleep recorded. A single normal routine EEG does not rule out the possibility of epilepsy. If there is high clinical suspicion for epilepsy, then additional EEG evaluation should be considered with a sleep- deprived EEG or more prolonged EEG monitoring. INTERPRETING NEUROLOGIST: Mehrdad Ma MD Board certified by the [place] [employer] in Neurology, Clinical Neurophysiology, and Sleep Medicine [facility]
== END 2019-12-24 14:35 | disposition home or self-care (01) | DRG 57 ==
LOC: ER 11:48 → EH 17:59 → 3W 20:04
PROVIDERS: ADMIT Internal Medicine; ATTEND Internal Medicine
DX: G31.2 Degeneration of nervous system due to alcohol (principal); R56.9 Unspecified convulsions; F10.20 Alcohol dependence, uncomplicated; R00.0 Tachycardia, unspecified; R74.0 Nonspecific elevation of levels of transaminase and lactic acid dehydrogenase [LDH]; Y90.0 Blood alcohol level of less than 20 mg/100 ml
CPT/HCPCS: 36415; 70450; 80053; 80307; 81001; 82962; 83735; 84100; 84443; 85025; 85027; 93005; 93010; 95819; 96361; 96374; 96376; 99285; J2060; J7030; J7040

== ENCOUNTER 2020-01-22 09:47 | Inpatient (IN) | payer MEDICARE, BC ==
--- NOTE | 2020-01-22 10:04 | ER Document Report ---
ED Medical Screen (RME) - General Chief Complaint: Altered Mental Status Stated Complaint: DISORIENTED Time Seen by Provider: 01/22/20 09:59 Primary Care Provider: NILTON SARKAR MD [Primary Care Provider] - Follow up as needed Notes: Patient is a 64-year-old male who presents to the emergency department after having 2 seizures this morning. Patient has history of seizures in the past. Patient also drinks alcohol. Patient's daughter is with the patient and states that yesterday he fell and hit the front part of his head. Daughter states that the patient has been confused since then. Exam: Patient confused and wanting to lay on the floor stating that it was a bed. Patient states that he has, "at home." I have greeted and performed a rapid initial assessment of this patient. A comprehensive ED assessment and evaluation of the patient, analysis of test results and completion of medical decision making process will be conducted by an additional ED providers. TRAVEL OUTSIDE OF THE [place] IN LAST 30 DAYS: No - Related Data Allergies/Adverse Reactions: No Known Allergies Allergy (Verified 01/22/20 09:54) Past Medical History - Past Medical History Cardiac Medical History: Denies: Hx Heart Attack, Hx Hypertension Pulmonary Medical History: Denies: Hx Asthma Neurological Medical History: Denies: Hx Cerebrovascular Accident, Hx Seizures Renal/ Medical History: Denies: Hx Peritoneal Dialysis GI Medical History: Denies: Hx Hepatitis, Hx Hiatal Hernia, Hx Ulcer Psychiatric Medical History: Denies: Hx Depression Infectious Medical History: Denies: Hx Hepatitis Past Surgical History: Denies: Hx Open Heart Surgery, Hx Pacemaker - Immunizations Hx Diphtheria, Pertussis, Tetanus Vaccination: Yes Doctor's Discharge - Discharge Referrals: NILTON SARKAR MD [Primary Care Provider] - Follow up as needed
[2020-01-22] MEDS ORDERED: LORAZEPAM INJ 2 MG/1 ML VIAL IM ONE (11:09)
--- NOTE | 2020-01-22 11:21 | RADIOLOGY REPORT (SQ) ---
EXAM DESCRIPTION: CT HEAD WITHOUT IMAGES COMPLETED DATE/TIME: 01/22/2020 10:28 am REASON FOR STUDY: AMS COMPARISON: CT brain 12/23/2019, 11/17/2017, 04/25/2015 TECHNIQUE: Axial images acquired through the brain without intravenous contrast. Images reviewed wi th bone, brain and subdural windows. Additional sagittal and coronal reconstructions were generated. Images stored on PACS. All CT scanners at this facility use dose modulation, iterative reconstruction, and/or weight based d osing when appropriate to reduce radiation dose to as low as reasonably achievable (ALARA). [facility]: Dose Right [facility]: CareDose [facility]: Dose Right [facility]: Teradose 4D [facility]: [employer] RADIATION DOSE: CT Rad equipment meets quality standard of care and radiation dose reduction techniq ues were employed. CTDIvol: 53.2 mGy. DLP: 991 mGy-cm. mGy. LIMITATIONS: None. FINDINGS: VENTRICLES: Normal size and contour. CEREBRUM: No masses. No hemorrhage. No midline shift. No evidence for acute infarction. Normal gra y/white matter differentiation. No areas of low density in the white matter. CEREBELLUM: No masses. No hemorrhage. No alteration of density. No evidence for acute infarction. EXTRAAXIAL SPACES: No fluid collections. No masses. ORBITS AND GLOBE: No intra- or extraconal masses. Normal contour of globe without masses. CALVARIUM: No fracture. PARANASAL SINUSES: No fluid or mucosal thickening. SOFT TISSUES: No mass or hematoma. OTHER: No other significant finding. IMPRESSION: NORMAL BRAIN CT WITHOUT CONTRAST. EVIDENCE OF ACUTE STROKE: NO. COMMENT: Quality ID # [id number]: Final reports with documentation of one or more dose reduction techniques (e.g., Automated exposure control, adjustment of the mA and/or kV according to patient size, use of iterative reconstruction technique) TECHNICAL DOCUMENTATION: JOB ID: [id number] 2010 [employer]- All Rights Reserved Reading location - IP/workstation name: [email or web address]
[2020-01-22] MEDS ORDERED: LORAZEPAM INJ 2 MG/1 ML VIAL ONE ×3 (11:25→12:09)
[2020-01-22] MEDS ORDERED: LORAZEPAM INJ 2 MG/1 ML VIAL IV ONE ×3 (11:43→14:03)
--- NOTE | 2020-01-22 12:08 | ER Document Report ---
ED General - General TRAVEL OUTSIDE OF THE [place] IN LAST 30 DAYS: No - Related Data Home Medications: atorvastatin. thyroid <LEANDRO PAYNE - Last Filed: 01/22/20 13:48> <SNEHA NARANJO - Last Filed: 01/22/20 16:00> - General Chief Complaint: Altered Mental Status Stated Complaint: DISORIENTED Time Seen by Provider: 01/22/20 09:59 Primary Care Provider: NILTON SARKAR MD [PEDIATRICS] - Follow up as needed - [facility] Notes: Chief complaint: Seizure and altered mental status History of present illness: 64-year-old male followed by Dr. Spann brought in by family by private automobile after having 2 seizures at home this morning. This gentleman has a history of chronic alcoholism consuming in excess of 3 sixpacks of beer every day according to his daughter. He was admitted to the hospitalist service here approximately a month ago for altered mental status and possible seizures. The treating physician at that time, Dr. Darling, indicates in the discharge summary that there were no witnessed seizures while patient was in the hospital and that he thought that this man probably was having seizures related to alcohol abuse although he postulated that he might have some chronic encephalopathy such as Warnicke's encephalopathy. The patient was discharged on thiamine and multivitamins and was supposed to be going to see a neurologist on outpatient basis. Daughter indicates that family had made an appointment for this Monday with Dr. Spann and they were going try to arrange an outpatient neurology referral for him. Upon discussions with the patient today he is slightly belligerent and expresses strong desire to leave here and does not want to undergo further medical work- up. In talking with him and examining him however he is disoriented as to the day and date and also has some subtle neurologic abnormalities. I told him therefore that he needs additional medical work-up. He was relatively u ncooperative and would not really share further history with me. (LEANDRO PAYNE) - Related Data Allergies/Adverse Reactions: No Known Allergies Allergy (Verified 01/22/20 09:54) Past Medical History - General Information source: Patient, [facility] Records - Social History Smoking Status: Never Smoker Chew tobacco use (# tins/day): No Frequency of alcohol use: Heavy Drug Abuse: None Family History: Reviewed & Not Pertinent Patient has homicidal ideation: No - Past Medical History Cardiac Medical History: Denies: Hx Heart Attack, Hx Hypertension Pulmonary Medical History: Denies: Hx Asthma Neurological Medical History: Denies: Hx Cerebrovascular Accident, Hx Seizures Renal/ Medical History: Denies: Hx Peritoneal Dialysis GI Medical History: Denies: Hx Hepatitis, Hx Hiatal Hernia, Hx Ulcer Psychiatric Medical History: Denies: Hx Depression Infectious Medical History: Denies: Hx Hepatitis Past Surgical History: Denies: Hx Open Heart Surgery, Hx Pacemaker - Immunizations Hx Diphtheria, Pertussis, Tetanus Vaccination: Yes <LEANDRO PAYNE E - Last Filed: 01/22/20 13:48> Review of Systems <LEANDRO PAYNE E - Last Filed: 01/22/20 13:48> - Review of Systems Notes: Constitutional: Negative for fever. HENT: Negative for sore throat. Eyes: Negative for visual changes. Cardiovascular: Negative for chest pain. Respiratory: Negative for shortness of breath. Gastrointestinal: Negative for abdominal pain, vomiting or diarrhea. Genitourinary: Negative for dysuria. Musculoskeletal: Negative for back pain. Skin: Negative for rash. Neurological: As per HPI. 10 point ROS negative except as marked above and in HPI. (LEANDRO PAYNE) Physical Exam <LEANDRO PAYNE E - Last Filed: 01/22/20 13:48> - Vital signs Vitals: Temp 97.7 F 01/22/20 09:54 - Notes Notes: GENERAL: Mildly belligerent male appearing approximately stated age. SKIN: Good turgor no rashes. HEAD: Normocephalic atraumatic. EYES: PERRLA. EOMI. Conjunctivae and sclerae clear. EARS: CANALS AND TMS CLEAR. NOSE: CLEAR. MOUTH: Moist mucosa. Good dentition. No stridor or edema. No drooling. NECK: Supple. No masses or thyromegaly. No adenopathy. Carotids 2+ without bruits. No JVD. BACK: Symmetrical without tenderness. CHEST: Respirations unlabored. Breath sounds clear and symmetrical. HEART: Regular rhythm. No murmur gallop or rub. ABDOMEN: Soft nontender without masses, organomegaly or rebound. Bowel sounds normally active. No bruits. GENITALIA: Deferred. EXTREMITIES: No edema. No calf tenderness. Cap refill less than 1.5 seconds. Dorsalis pedis and posterior tibial pulses 3+ and symmetrical. NEUROLOGICAL: GCS 14. Oriented to person and place but not to day or date. Slightly unsteady as he attempts to stand. Fluent speech. Cranial nerves II through XII intact. No gross sensory or motor deficit. Mild dysmetria right upper extremity. Normal tone. PSYCHIATRIC: Anxious, mildly belligerent affect. (LEANDRO PAYNE) Course - Laboratory Result Diagrams: 01/22/20 11:50 01/22/20 11:50 <LEANDRO PAYNE - Last Filed: 01/22/20 13:48> - Laboratory Result Diagrams: 01/22/20 11:50 01/22/20 11:50 <SNEHA NARANJO - Last Filed: 01/22/20 16:00> - Re-evaluation Re-evalutation: 01/22/20 13:57 Initial plan was to obtain an MRI/MRA of the brain because of the mild dysmetria. 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 I think most of what we are seeing today is related to alcohol withdrawal. Daughter indicates that she is trying to prevent Mr. Casarez from drinking at home and it is unclear exactly when his last alcohol intake occurred. He had a recurrent seizure here which was terminated with IV Ativan. He was thereafter postictal and mildly combative requiring additional 2 mg of Ativan. Chest x-ray is normal. His EKG was remarkable only for sinus tachycardia with a rate of 106. He is not had any vomiting. He does have some elevation of his transaminase values consistent with alcoholic hepatitis. He also has macrocytic indices on his CBC consistent with chronic alcohol abuse. Findings have been discussed with Dr. Spann who indicates that he would be willing to admit patient to his service and IMCU provided his MRI is unremarkable and also provided that he does not have any further seizures while in the ED. (LEANDRO PAYNE) 01/22/20 15:56 The patient was signed out to me at shift change since his MRI was pending. The patient's MRI showed no acute process. Dr. Spann (patient's PCP) was notified of the patient's MRI resulte. Dr. Spann requested that I consult the Microelectronics Technician since the patient has required a fair amount of Ativan. Dr. Mcgovern of the ICU evaluated the patient and spoke with Dr. Spann and the plan is for the patient to be admitted to IMCU. (NARANJOSNEHA ) - Vital Signs Vital signs: Temp Pulse Resp BP Pulse Ox 98.4 F 112 H 14 162/92 H 98 01/22/20 13:15 01/22/20 13:24 01/22/20 15:17 01/22/20 14:31 01/22/20 14:42 - Laboratory Laboratory results interpreted by me: 01/22/20 01/22/20 01/22/20 11:46 11:50 11:50 WBC 11.2 H RBC 4.24 L MCV 103 H D MCH 34.4 H RDW 15.9 H Carbon Dioxide 21 L Glucose 135 H POC Glucose 131 H Total Bilirubin 1.4 H AST 342 H ALT 82 H Alkaline Phosphatase 164 H Total Protein 8.5 H Free T4 Urine Protein Urine Ascorbic Acid Salicylates < 1.0 L Acetaminophen < 10 L 01/22/20 01/22/20 11:50 14:03 WBC RBC MCV MCH RDW Carbon Dioxide Glucose POC Glucose Total Bilirubin AST ALT Alkaline Phosphatase Total Protein Free T4 0.69 L Urine Protein 30 H Urine Ascorbic Acid 20 H Salicylates Acetaminophen Critical Care Note - Critical Care Note Total time excluding time spent on procedures (mins): 35 - Recurrent seizures requiring IV Ativan. <LEANDRO PAYNE E - Last Filed: 01/22/20 13:48> Discharge <LEANDRO PAYNE - Last Filed: 01/22/20 13:48> - Discharge Admitting Provider: [facility] Unit Admitted: IMCU <SNEHA NARANJO - Last Filed: 01/22/20 16:00> - Discharge Clinical Impression: Seizure Alcohol withdrawal syndrome Qualifiers: Complication of substance-induced condition: with delirium Qualified Code(s): F10.231 - Alcohol dependence with withdrawal delirium Alcoholic hepatitis Qualifiers: Ascites presence: without ascites Qualified Code(s): K70.10 - Alcoholic hepatitis without ascites Condition: Fair Disposition: ADMITTED INPATIENT Referrals: NILTON SARKAR MD [PEDIATRICS] - Follow up as needed
[2020-01-22 12:16] LABS: ABSOLUTE BASOPHILS # (AUTO) 0.1 10^3/uL (0.0-0.2); ABSOLUTE EOSINOPHILS # (AUTO) 0.1 10^3/uL (0.0-0.6); ABSOLUTE LYMPHOCYTES (AUTO) 3.6 10^3/uL (0.5-4.7); ABSOLUTE MONOCYTES (AUTO) 1.1 10^3/uL (0.1-1.4); ABSOLUTE NEUT (AUTO) 6.2 10^3/uL (1.7-8.2); EOSINOPHILS % (AUTO) 0.9 % (0-6); HEMATOCRIT 43.5 % (37.9-51.0); HEMOGLOBIN 14.6 g/dL (13.5-17.0); LYMPHOCYTES % (AUTO) 32.5 % (13-45); MEAN CORPUSCULAR HEMOGLOBIN 34.4 pg (27.0-33.4); MEAN CORPUSCULAR HGB CONC 33.5 g/dL (32.0-36.0); PLATELET COUNT 209 10^3/uL (150-450); RED BLOOD COUNT 4.24 10^6/uL (4.35-5.55); RED CELL DISTRIBUTION WIDTH 15.9 % (11.5-14.0); SEGMENTED NEUTROPHILS % (AUTO) 55.6 % (42-78); TOTAL CELLS COUNTED % (AUTO) 100 %; WHITE BLOOD COUNT 11.2 10^3/uL (4.0-10.5)
[2020-01-22 12:23] LABS: MEAN CORPUSCULAR VOLUME 103 fl (80-97)
[2020-01-22 12:27] LABS: ALBUMIN 4.6 g/dL (3.5-5.0); ALKALINE PHOSPHATASE 164 U/L (38-126); ASPARTATE AMINO TRANSFERASE 342 U/L (17-59); BILIRUBIN,DIRECT 0.2 mg/dL (0.0-0.4); BILIRUBIN,TOTAL 1.4 mg/dL (0.2-1.3); BLOOD UREA NITROGEN 7 mg/dL (7-20); CALCIUM 9.7 mg/dL (8.4-10.2); GLUCOSE 135 mg/dL (75-110); POTASSIUM 3.8 mmol/L (3.6-5.0); TOTAL PROTEIN 8.5 g/dL (6.3-8.2)
[2020-01-22 12:34] LABS: ANION GAP 19 (5-19); CARBON DIOXIDE 21 mmol/L (22-30); CHLORIDE 98 mmol/L (98-107)
[2020-01-22 12:35] LABS: ACETAMINOPHEN < 10 ug/mL (10-30); ALCOHOL < 10 mg/dL (NONE DETECTED); SALICYLATE < 1.0 mg/dL (2.0-20.0)
[2020-01-22 12:43] LABS: FREE T4 (FREE THYROXINE) 0.69 ng/dL (0.78-2.19)
--- NOTE | 2020-01-22 12:54 | RADIOLOGY REPORT (SQ) ---
EXAM DESCRIPTION: CHEST SINGLE VIEW IMAGES COMPLETED DATE/TIME: 01/22/2020 12:40 pm REASON FOR STUDY: seizure COMPARISON: AP chest 04/25/2015 EXAM PARAMETERS: NUMBER OF VIEWS: One view. TECHNIQUE: Single frontal radiographic view of the chest acquired. RADIATION DOSE: NA LIMITATIONS: Low lung volumes FINDINGS: LUNGS AND PLEURA: No opacities, masses or pneumothorax. No pleural effusion. MEDIASTINUM AND HILAR STRUCTURES: No masses. Contour normal. HEART AND VASCULAR STRUCTURES: Heart normal in size. Normal vasculature. BONES: No acute findings. HARDWARE: None in the chest. OTHER: Distended stomach fundus under the left hemidiaphragm IMPRESSION: NO ACUTE RADIOGRAPHIC FINDING IN THE CHEST. TECHNICAL DOCUMENTATION: JOB ID: [id number] 2010 [employer]- All Rights Reserved Reading location - IP/workstation name: [email or web address]
[2020-01-22 12:56] LABS: THYROID STIMULATING HORMONE 2.24 uIU/mL (0.47-4.68)
--- NOTE | 2020-01-22 13:39 | EKG REPORT ---
SEVERITY:- OTHERWISE NORMAL ECG - SINUS TACHYCARDIA BORDERLINE LEFT AXIS DEVIATION NONSPECIFIC ST-T CHANGES INFERIOR LEADS : Confirmed by: Kin Guerrero MD 22-Jan-2020 13:38:37
[2020-01-22 14:21] LABS: APPEARANCE,URINE SLIGHTLY-CLOUDY; BILIRUBIN,URINE NEGATIVE (NEGATIVE); COLOR,URINE YELLOW; GLUCOSE, URINE NEGATIVE (NEGATIVE); KETONES,URINE NEGATIVE (NEGATIVE); LEUKOCYTE ESTERASE,URINE NEGATIVE (NEGATIVE); NITRITE,URINE NEGATIVE (NEGATIVE); PROTEIN,URINE 30 mg/dL (NEGATIVE); URINE SPECIFIC GRAVITY 1.017; UROBILINOGEN,URINE NEGATIVE mg/dL (<2.0)
[2020-01-22 14:35] LABS: URINE AMPHETAMINES SCREEN NEGATIVE; URINE BARBITURATES SCREEN NEGATIVE; URINE BENZODIAZEPINES SCREEN NEGATIVE; URINE COCAINE SCREEN NEGATIVE; URINE MARIJUANA (THC) SCREEN NEGATIVE; URINE METHADONE SCREEN NEGATIVE; URINE PHENCYCLIDINE SCREEN NEGATIVE
--- NOTE | 2020-01-22 15:42 | RADIOLOGY REPORT (SQ) ---
EXAM DESCRIPTION: MRI HEAD WITHOUT IMAGES COMPLETED DATE/TIME: 01/22/2020 3:19 pm REASON FOR STUDY: seizures COMPARISON: CT brain 04/25/2015, 11/17/2017, 12/23/2019, 01/22/2020 TECHNIQUE: Multiplanar imaging includes non-contrasted T1, T2, FLAIR, and diffusion with ADC map seq uences. Images stored on PACS. LIMITATIONS: Motion artifact, rapid sequences used FINDINGS: ANATOMY: No developmental anomalies. Normal vascular flow voids. Pituitary fossa normal. CSF SPACES: Normal in size and contour. No hemorrhage. CEREBRUM: Diffusion-weighted images are negative for acute ischemic change. No MR evidence of acute intracranial hemorrhage, mass effect, or midline shift. No significant pre-existing white matter dis ease POSTERIOR FOSSA: No signal alteration. No hemorrhage. No edema, masses or mass effect. Internal ángel tory canals, cerebello-pontine angles, mastoids normal. DIFFUSION IMAGING: Negative for acute or sub-acute infarction. ORBITS: Post cataract surgery right globe PARANASAL SINUSES: No fluid levels. Mucosa normal. OTHER: No other significant finding. IMPRESSION: NORMAL MRI OF THE BRAIN WITHOUT INTRAVENOUS GADOLINIUM CONTRAST. EVIDENCE OF ACUTE STROKE: NO. TECHNICAL DOCUMENTATION: JOB ID: [id number] 2010 [employer]- All Rights Reserved Reading location - IP/workstation name: [email or web address]
[2020-01-22] MEDS ORDERED: ACETAMINOPHEN 325 MG TABLET PO PRN (15:43)
[2020-01-22] MEDS ORDERED: ONDANSETRON HCL INJ/PF 4 MG/2 ML SDV IV PRN (15:43)
[2020-01-22] MEDS ORDERED: LEVALBUTEROL HCL NEB 0.63 MG/3 ML AMPUL NEB PRN (15:43)
--- NOTE | 2020-01-22 15:50 | PDOC H&P ---
History of Present Illness Admission Date/PCP: AUREA SANTOYO MD Patient complains of: Seizures activity History of Present Illness: LIBRA ALTAMIRANO is a 64 year old male This is a 64-year-old male's fairly a new patient I saw only 1 times in the office last week discharge from the [facility] from the seizures activities and alcohol abuse Patient was admitted last month in the [facility] because of the seizures activities and alcohol abuse patient was put on a thiamine multivitamin patient have initial EEG was done was negative CT of the head was negative at the time and p atient was not require any prophylactic medicines for the seizures Patients have a longstanding history of the alcohol abuse per the patient and the daughter used to live in [place] recently moved with her daughter Patient usually drinks 6 beer a day or more but according to the daughter he is not drinking recently Also have an elevated LFT most likely alcohol-related patient have a hepatitis panel done in the office was negative Patient have a vitamin B12 level and other blood work was all stable Patient came today's because of the noticed that patients have a couple of seizures in the morning according to the daughter in the emergency department patient having 2 or 3 seizures required IV lorazepam total of 4 mg ER physicians call me to admit the patient as he thought may be most likely alcohol withdrawal for the alcohol level is low Patient's is a postictal phase ER physician order the MRI of the head to further evaluate Very extensive discussions with the daughter about the patient alcohol-related abuse patient have a outpatients appointment to the neurology We will put the patient is in IMCU seizures precautions put on alcohol withdrawal protocol We will start the patient on a Keppra but continues ongoing seizures activity We will repeat the EEG again Past Medical History Cardiac Medical History: Reports: Hyperlipidema, Hypertension Denies: Myocardial Infarction Pulmonary Medical History: Denies: Asthma Neurological Medical History: Denies: Seizures GI Medical History: Denies: Hepatitis, Hiatal Hernia Psychiatric Medical History: Reports: Alcohol Dependency Denies: Depression Hematology: Reports: Anemia Denies: Sickle Cell Disease Past Surgical History Past Surgical History: Denies: Pacemaker Social History Information Source: Relative Smoking Status: Never Smoker Electronic Cigarette use?: No Frequency of Alcohol Use: Heavy Hx Recreational Drug Use: No Hx Prescription Drug Abuse: No Family History Family History: Reviewed & Not Pertinent Parental Family History Reviewed: Yes Children Family History Reviewed: Yes Sibling(s) Family History Reviewed.: Yes Medication/Allergy Home Medications: Atorvastatin Calcium [Lipitor 40 mg Tablet] 40 mg PO QAM 06/24/19 Bimatoprost [Lumigan 0.01% Oph Soln 2.5 ml/Bottle] 1 drop OU QPM 12/23/19 Dorzolamide HCl/Timolol Maleat [Cosopt Eye Drops] 1 drop OS Q48H 12/23/19 Latanoprost [Xalatan 0.005% Oph Soln 2.5 ml] 1 drop OU QAM 12/23/19 Levothyroxine Sodium 100 mcg PO Q6AM 12/23/19 Multivitamin [Multiple Vitamins] 1 tab PO DAILY 12/23/19 Folic Acid [Folvite 1 mg Tablet] 1 mg PO DAILY #30 tablet 12/24/19 Thiamine HCl [Thiamine 100 mg Tablet] 100 mg PO DAILY #30 tablet 12/24/19 Allergies/Adverse Reactions: No Known Allergies Allergy (Verified 01/22/20 09:54) Review of Systems ROS unobtainable: Due to mental status All systems: reviewed and no additional remarkable complaints except as stated Physical Exam Vital Signs: Temp Pulse Resp BP Pulse Ox 98.4 F 112 H 16 168/101 H 88 L 01/22/20 13:15 01/22/20 13:24 01/22/20 14:01 01/22/20 14:00 01/22/20 14:01 General appearance: PRESENT: no acute distress, well-developed, well-nourished Head exam: PRESENT: atraumatic, normocephalic Eye exam: PRESENT: conjunctiva pink, EOMI, PERRLA. ABSENT: scleral icterus Ear exam: PRESENT: normal external ear exam Mouth exam: PRESENT: moist, tongue midline Neck exam: PRESENT: full ROM. ABSENT: carotid bruit, JVD, lymphadenopathy, thyromegaly Respiratory exam: PRESENT: clear to auscultation edwin Cardiovascular exam: PRESENT: RRR. ABSENT: diastolic murmur, rubs, systolic murmur Pulses: PRESENT: normal dorsalis pedis pul, +2 pedal pulses bilateral Vascular exam: PRESENT: normal capillary refill GI/Abdominal exam: PRESENT: normal bowel sounds, soft. ABSENT: distended, guarding, mass, organolmegaly, rebound, tenderness Rectal exam: PRESENT: deferred Neurological exam: PRESENT: altered. ABSENT: motor sensory deficit Psychiatric exam: PRESENT: appropriate affect, normal mood. ABSENT: homicidal ideation, suicidal ideation Skin exam: PRESENT: dry, intact, warm. ABSENT: cyanosis, rash Results Laboratory Results: 01/22/20 11:50 01/22/20 11:50 01/22/20 01/22/20 01/22/20 11:50 11:50 11:50 WBC 11.2 H RBC 4.24 L Hgb 14.6 Hct 43.5 MCV 103 H D MCH 34.4 H MCHC 33.5 RDW 15.9 H Plt Count 209 Seg Neutrophils % 55.6 Sodium 138.1 Potassium 3.8 Chloride 98 Carbon Dioxide 21 L Anion Gap 19 BUN 7 Creatinine 0.86 Est GFR ( Amer) > 60 Glucose 135 H Calcium 9.7 Total Bilirubin 1.4 H AST 342 H Alkaline Phosphatase 164 H Total Protein 8.5 H Albumin 4.6 TSH 2.24 Free T4 0.69 L Urine Color Urine Appearance Urine pH Ur Specific [place] Urine Protein Urine Glucose (UA) Urine Ketones Urine Blood Urine Nitrite Ur Leukocyte Esterase Urine WBC (Auto) Urine RBC (Auto) 01/22/20 14:03 WBC RBC Hgb Hct MCV MCH MCHC RDW Plt Count Seg Neutrophils % Sodium Potassium Chloride Carbon Dioxide Anion Gap BUN Creatinine Est GFR ( Amer) Glucose Calcium Total Bilirubin AST Alkaline Phosphatase Total Protein Albumin TSH Free T4 Urine Color YELLOW Urine Appearance SLIGHTLY-CLOUDY Urine pH 6.0 Ur Specific [place] 1.017 Urine Protein 30 H Urine Glucose (UA) NEGATIVE Urine Ketones NEGATIVE Urine Blood NEGATIVE Urine Nitrite NEGATIVE Ur Leukocyte Esterase NEGATIVE Urine WBC (Auto) 1 Urine RBC (Auto) 0 Impressions: Head CT 01/22/20 09:59 IMPRESSION: NORMAL BRAIN CT WITHOUT CONTRAST. EVIDENCE OF ACUTE STROKE: NO. Chest X-Ray 01/22/20 11:59 IMPRESSION: NO ACUTE RADIOGRAPHIC FINDING IN THE CHEST. Assessment & Plan - Diagnosis (1) Altered mental status Qualifiers: Coma depth: Letty coma 13-15 Is this a current diagnosis for this admission?: Yes Plan: Most likely due to the underlying alcoholism's we will continue thiamine and multivitamins We will get the MRI of the head (2) Alcohol withdrawal syndrome Qualifiers: Complication of substance-induced condition: with delirium Qualified Cod e(s): F10.231 - Alcohol dependence with withdrawal delirium Is this a current diagnosis for this admission?: Yes Plan: Start the patient on alcohol withdrawal protocol (3) Alcoholic hepatitis Qualifiers: Ascites presence: without ascites Qualified Code(s): K70.10 - Alcoholic hepatitis without ascites Is this a current diagnosis for this admission?: Yes Plan: We will get the ultrasounds of the abdomen Recent hepatitis panel is all negative (4) Seizure Is this a current diagnosis for this admission?: Yes Plan: We will repeat the EEG continues the lorazepam we will get the MRI of the head to further evaluate With the ongoing continued seizures activity we will start the patient on a Keppra (5) Encephalopathy Is this a current diagnosis for this admission?: Yes Plan: Continues the IV thiamine and multivitamins (6) Tachycardia Is this a current diagnosis for this admission?: Yes Plan: Most likely due to alcohol withdrawal - Time Time Spent: 50 to 70 Minutes Medications reviewed and adjusted accordingly: Yes Anticipated discharge: Home Within: Other - Inpatient Certification Based on my medical assessment, after consideration of the patient's comorbidities, presenting symptoms, or acuity I expect that the services needed warrant INPATIENT care.: Yes I certify that my determination is in accordance with my understanding of Medicare's requirements for reasonable and necessary INPATIENT services [42 CFR 412.3e].: Yes Medical Necessity: Failure to Improve With Outpatient Therapy, Significant Comorbidiites Make Outpatient Treatment Too Risky, Need Close Monitoring Due to Risk of Patient Decompensation, Need For IV Fluids, Need for IV Antibiotics Post Hospital Care: D/C Theater Projectionist Documentation - Plan Summary Plan Summary: Admit the patient in IMCU See MD orders
[2020-01-22] MEDS ORDERED: NORMAL SALINE 1000 ML 1,000 ML with POTASSIUM CHLORIDE 20 MEQ, MAGNESIUM SULFATE 8 MEQ,... IV SCH ×5 (18:00)
--- NOTE | 2020-01-22 18:59 | RADIOLOGY REPORT (SQ) ---
EXAM DESCRIPTION: U/S ABDOMEN COMPLETE W/O DOP IMAGES COMPLETED DATE/TIME: 01/22/2020 5:07 pm REASON FOR STUDY: elevated lft/alcohollisim COMPARISON: None. TECHNIQUE: Dynamic and static grayscale images acquired of the abdomen and recorded on PACS. Additio nal selected color Doppler and spectral images recorded. Note: Study does not meet criteria for complete doppler/duplex scan LIMITATIONS: The examination is limited due to overlying bowel gas. FINDINGS: PANCREAS: The pancreas is obscured by overlying bowel gas. LIVER: Fatty liver. The liver measures 17.1 cm in length, upper limits of normal size. LIVER VASCULATURE: The vasculature is not visualized due to overlying bowel gas. GALLBLADDER: No stones. The gallbladder wall measures 2.9 mm, normal wall thickness. No pericholecys tic fluid. ULTRASOUND-DETECTED PERLA'S SIGN: Negative. INTRAHEPATIC DUCTS AND COMMON DUCT: CBD measures 5.5 mm in diameter, normal. The intrahepatic ducts normal caliber. No filling defects. INFERIOR VENA CAVA: The IVC is obscured by overlying bowel gas. AORTA: The proximal and distal segments are obscured by overlying bowel gas. The mid segment measur es 1.7 cm in diameter and is patent. RIGHT KIDNEY: The right kidney measures 9.3 cm in length, normal size. Normal echogenicity. No juan pablo id or suspicious masses. No hydronephrosis. No calcifications. LEFT KIDNEY: The left kidney measures 9.7 cm in length, normal size. Normal echogenicity. No solid or suspicious masses. No hydronephrosis. No calcifications. SPLEEN: The spleen measures 8.9 cm in length, normal size. No solid masses. PERITONEAL AND PLEURAL SPACES: No ascites or effusions. OTHER: No other significant finding. IMPRESSION: 1. The pancreas, proximal and distal segments of the abdominal aorta, IVC, and portal v ein obscured by overlying bowel gas. 2. Fatty liver. TECHNICAL DOCUMENTATION: JOB ID: [id number] 2010 [employer]- All Rights Reserved Reading location - IP/workstation name: [email or web address]
[2020-01-22] MEDS ORDERED: LABETALOL HCL INJ 20 MG/4 ML DISP.SYRIN IV PRN (19:42)
[2020-01-22] MEDS: LORAZEPAM INJ 2 MG/1 ML VIAL IV PRN (19:50)
[2020-01-22] MEDS ORDERED: CEFEPIME 2 GM/D5W RTU 2 GM/50 ML RTUPB IV SCH (22:00)
[2020-01-22] MEDS: THIAMINE HCL 500 MG in NORMAL SALINE 250 ML IV SCH (23:00)
[2020-01-22] MEDS: CEFEPIME HCL 2 GM in DEXTROSE 5%-WATER 50 ML IV SCH (23:00)
[2020-01-22] MEDS: PANTOPRAZOLE SODIUM 40 MG VIAL IV SCH (23:00)
[2020-01-23] MEDS: LORAZEPAM INJ 2 MG/1 ML VIAL IV PRN ×3 (00:05→23:14)
[2020-01-23] MEDS: THIAMINE HCL 500 MG in NORMAL SALINE 250 ML IV SCH ×3 (05:55→21:26)
[2020-01-23] MEDS: NORMAL SALINE 1000 ML 1,000 ML IV PRN ×3 (05:58→21:26)
[2020-01-23 06:52] LABS: ABSOLUTE BASOPHILS # (AUTO) 0.1 10^3/uL (0.0-0.2); ABSOLUTE LYMPHOCYTES (AUTO) 2.2 10^3/uL (0.5-4.7); ABSOLUTE MONOCYTES (AUTO) 0.9 10^3/uL (0.1-1.4); ABSOLUTE NEUT (AUTO) 3.9 10^3/uL (1.7-8.2); BASOPHILS % (AUTO) 0.8 % (0-2); EOSINOPHILS % (AUTO) 0.7 % (0-6); HEMOGLOBIN 13.8 g/dL (13.5-17.0); LYMPHOCYTES % (AUTO) 30.9 % (13-45); MEAN CORPUSCULAR HEMOGLOBIN 34.6 pg (27.0-33.4); MEAN CORPUSCULAR HGB CONC 34.6 g/dL (32.0-36.0); MONOCYTES % (AUTO) 12.6 % (3-13); PLATELET COUNT 151 10^3/uL (150-450); RED BLOOD COUNT 4.01 10^6/uL (4.35-5.55); RED CELL DISTRIBUTION WIDTH 15.4 % (11.5-14.0); TOTAL CELLS COUNTED % (AUTO) 100 %; WHITE BLOOD COUNT 7.1 10^3/uL (4.0-10.5)
[2020-01-23 06:53] LABS: MEAN CORPUSCULAR VOLUME 100 fl (80-97)
[2020-01-23 06:59] LABS: ALBUMIN 3.8 g/dL (3.5-5.0); ALKALINE PHOSPHATASE 124 U/L (38-126); ANION GAP 9 (5-19); ASPARTATE AMINO TRANSFERASE 193 U/L (17-59); BILIRUBIN,DIRECT 0.1 mg/dL (0.0-0.4); BILIRUBIN,TOTAL 1.9 mg/dL (0.2-1.3); BLOOD UREA NITROGEN 2 mg/dL (7-20); CALCIUM 8.8 mg/dL (8.4-10.2); CARBON DIOXIDE 24 mmol/L (22-30); CHLORIDE 101 mmol/L (98-107); GLUCOSE 112 mg/dL (75-110); POTASSIUM 3.3 mmol/L (3.6-5.0)
--- NOTE | 2020-01-23 07:49 | EKG REPORT ---
SEVERITY:- ABNORMAL ECG - SINUS RHYTHM VENTRICULAR PREMATURE COMPLEX LEFT AXIS DEVIATION LEFT VENTRICULAR HYPERTROPHY ABNORMAL T, CONSIDER ISCHEMIA, INFERIOR LEADS BORDERLINE PROLONGED QT INTERVAL : Confirmed by: Kin Guerrero MD 23-Jan-2020 07:49:16
--- NOTE | 2020-01-23 09:10 | RADIOLOGY REPORT (SQ) ---
EXAM DESCRIPTION: CHEST SINGLE VIEW IMAGES COMPLETED DATE/TIME: 01/23/2020 8:46 am REASON FOR STUDY: aspirations COMPARISON: 01/22/2020. EXAM PARAMETERS: NUMBER OF VIEWS: One view. TECHNIQUE: Single frontal radiographic view of the chest acquired. RADIATION DOSE: NA LIMITATIONS: None. FINDINGS: LUNGS AND PLEURA: No opacities, masses or pneumothorax. No pleural effusion. MEDIASTINUM AND HILAR STRUCTURES: No masses. Contour normal. HEART AND VASCULAR STRUCTURES: Heart normal in size. Normal vasculature. BONES: No acute findings. HARDWARE: None in the chest. OTHER: No other significant finding. IMPRESSION: NO ACUTE RADIOGRAPHIC FINDING IN THE CHEST. TECHNICAL DOCUMENTATION: JOB ID: [id number] 2010 [employer]- All Rights Reserved Reading location - IP/workstation name: [email or web address]
--- NOTE | 2020-01-23 09:22 | PDOC PROGRESS REPORT ---
Subjective Progress Note for:: 01/23/20 Subjective:: Patient is currently doing fair still agitated on and off require restraint Patient with no seizures activity since admissions Patient is alert awake but confused Patient have a low-grade fever yesterday but currently all stable Start on antibiotic to rule out any aspirations wait for the culture Reason For Visit: SEIZURE,ALCOHOL WITHDRAWAL Physical Exam Vital Signs: Temp Pulse Resp BP Pulse Ox 98.1 F 88 20 125/79 99 01/23/20 08:25 01/23/20 08:25 01/23/20 08:25 01/23/20 08:25 01/23/20 08:25 Intake & Output 01/22/20 01/23/20 01/24/20 06:59 06:59 06:59 Intake Total 805 Balance 805 Weight 72.4 kg General appearance: PRESENT: no acute distress, well-developed, well-nourished Head exam: PRESENT: atraumatic, normocephalic Eye exam: PRESENT: conjunctiva pink, EOMI, PERRLA. ABSENT: scleral icterus Ear exam: PRESENT: normal external ear exam Mouth exam: PRESENT: moist, tongue midline Neck exam: PRESENT: full ROM. ABSENT: carotid bruit, JVD, lymphadenopathy, thyromegaly Respiratory exam: PRESENT: clear to auscultation edwin Cardiovascular exam: PRESENT: RRR. ABSENT: diastolic murmur, rubs, systolic murmur Pulses: PRESENT: normal dorsalis pedis pul, +2 pedal pulses bilateral Vascular exam: PRESENT: normal capillary refill GI/Abdominal exam: PRESENT: normal bowel sounds, soft. ABSENT: distended, guarding, mass, organolmegaly, rebound, tenderness Rectal exam: PRESENT: deferred Neurological exam: PRESENT: alert, altered, awake. ABSENT: motor sensory deficit Psychiatric exam: PRESENT: appropriate affect, normal mood. ABSENT: homicidal ideation, suicidal ideation Skin exam: PRESENT: dry, intact, warm. ABSENT: cyanosis, rash Results Laboratory Results: 01/23/20 05:42 01/23/20 05:42 01/22/20 01/22/20 01/22/20 11:50 11:50 11:50 WBC 11.2 H RBC 4.24 L Hgb 14.6 Hct 43.5 MCV 103 H D MCH 34.4 H MCHC 33.5 RDW 15.9 H Plt Count 209 Seg Neutrophils % 55.6 Sodium 138.1 Potassium 3.8 Chloride 98 Carbon Dioxide 21 L Anion Gap 19 BUN 7 Creatinine 0.86 Est GFR ( Amer) > 60 Glucose 135 H Calcium 9.7 Magnesium Total Bilirubin 1.4 H AST 342 H Alkaline Phosphatase 164 H Total Protein 8.5 H Albumin 4.6 TSH 2.24 Free T4 0.69 L Urine Color Urine Appearance Urine pH Ur Specific [place] Urine Protein Urine Glucose (UA) Urine Ketones Urine Blood Urine Nitrite Ur Leukocyte Esterase Urine WBC (Auto) Urine RBC (Auto) 01/22/20 01/23/20 01/23/20 14:03 05:42 05:42 WBC 7.1 RBC 4.01 L Hgb 13.8 Hct 40.0 MCV 100 H MCH 34.6 H MCHC 34.6 RDW 15.4 H Plt Count 151 Seg Neutrophils % 55.0 Sodium 134.3 L Potassium 3.3 L Chloride 101 Carbon Dioxide 24 Anion Gap 9 BUN 2 L Creatinine 0.67 Est GFR ( Amer) > 60 Glucose 112 H Calcium 8.8 Magnesium 1.8 Total Bilirubin 1.9 H AST 193 H Alkaline Phosphatase 124 Total Protein 7.0 Albumin 3.8 TSH Free T4 Urine Color YELLOW Urine Appearance SLIGHTLY-CLOUDY Urine pH 6.0 Ur Specific [place] 1.017 Urine Protein 30 H Urine Glucose (UA) NEGATIVE Urine Ketones NEGATIVE Urine Blood NEGATIVE Urine Nitrite NEGATIVE Ur Leukocyte Esterase NEGATIVE Urine WBC (Auto) 1 Urine RBC (Auto) 0 Impressions: Abdomen Ultrasound 01/22/20 00:00 IMPRESSION: 1. The pancreas, proximal and distal segments of the abdominal aorta, IVC, and portal vein obscured by overlying bowel gas. 2. Fatty liver. Head CT 01/22/20 09:59 IMPRESSION: NORMAL BRAIN CT WITHOUT CONTRAST. EVIDENCE OF ACUTE STROKE: NO. Head MRI 01/22/20 11:12 IMPRESSION: NORMAL MRI OF THE BRAIN WITHOUT INTRAVENOUS GADOLINIUM CONTRAST. EVIDENCE OF ACUTE STROKE: NO. Assessment & Plan - Diagnosis (1) Altered mental status Qualifiers: Coma depth: [place] coma 13-15 Is this a current diagnosis for this admission?: Yes Plan: Most likely due to the alcohol withdrawal currently all stable (2) Alcohol withdrawal syndrome Qualifiers: Complication of substance-induced condition: with delirium Qualified Code(s): F10.231 - Alcohol dependence with withdrawal delirium Is this a current diagnosis for this admission?: Yes Plan: Continues the alcohol withdrawal protocol as per discussed with the trail maintenance worker will give a high dose of thiamine (3) Alcoholic hepatitis Qualifiers: Ascites presence: without ascites Qualified Code(s): K70.10 - Alcoholic hep atitis without ascites Is this a current diagnosis for this admission?: Yes Plan: Patient's ultrasound is all stable (4) Seizure Is this a current diagnosis for this admission?: Yes Plan: Patient is currently doing better discussed with the neurology locally here and suggested that the patient have a clear-cut seizures tonic-clonic then may be a put a small dose of the Keppra otherwise no need it as per the ER physicians record patient having some seizures activity we will start the small dose of the Keppra before the discharge (5) Encephalopathy Is this a current diagnosis for this admission?: Yes Plan: Currently all stable due to the alcohol-related (6) Tachycardia Is this a current diagnosis for this admission?: Yes - Time Time Spent with patient: 25-34 minutes Level of Care: IMCU Medications reviewed and adjusted accordingly: Yes Anticipated discharge: Other Within: Other - Plan Summary Plan Summary: Continues alcohol withdrawal protocol will get the chest x-ray to rule out any aspirations continues IV antibiotic coverage into the chest x-ray and blood cultures continues to monitor the patient Discussed with the local neurology about the seizures activity and he suggest that patients probably need a longer EEG is outpatient and if the patient's have a clear-cut seizures again then probably need a likely small dose of the Keppra for prophylactic
[2020-01-23] MEDS: PANTOPRAZOLE SODIUM 40 MG VIAL IV SCH ×2 (09:29→21:24)
[2020-01-23] MEDS: ENOXAPARIN SODIUM INJ 40 MG/0.4 ML DISP.SYRIN SUBCUT SCH (09:30)
[2020-01-23] MEDS: LORAZEPAM INJ 2 MG/1 ML VIAL IV SCH ×3 (09:30→21:11)
[2020-01-23] MEDS: CEFEPIME HCL 2 GM in DEXTROSE 5%-WATER 50 ML IV SCH (09:31)
--- NOTE | 2020-01-23 10:55 | CDI QUERY ---
CDI Query CDI Review: Dear Provider, Please further specify type "ENCEPHALOPATHY" noted in progress notes to capture severity of illness. ACUTE METABOLIC ENCEPHALOPATHY, now resolving? ACUTE TOXIC ENCEPHALOPATHY, now resolving? OTHER? Thanks, Sonali Pierre [phone]
[2020-01-23] MEDS: NORMAL SALINE 1000 ML 1,000 ML with POTASSIUM CHLORIDE 20 MEQ, MAGNESIUM SULFATE 8 MEQ,... IV SCH ×4 (17:45)
[2020-01-23] MEDS ORDERED: NORMAL SALINE 1000 ML 1,000 ML with POTASSIUM CHLORIDE 20 MEQ, MAGNESIUM SULFATE 8 MEQ,... IV SCH ×5 (18:00)
--- NOTE | 2020-01-23 18:19 | NEURO WORKBENCH EEG REPORT ---
EEG Report Patient: Shivam Casarez ID: [id number] Referring Doctor: Shonda Spann MD DOS: 01/23/2020 Medications: Cefepime, Lovenon, Ativan, Protonix, KCl, Magnesium Sulfate, Thiamine, Multivitamins History This is a 64 year old left handed male with a history of alcohol use, thyroid disease, hypercholesterolemia, glaucoma, anemia who was admitted with alcohol withdrawal and seizure. This EEG was requested for seizure. EEG Interpretation This EEG was recorded in the awake state only. The awake EEG is characterized by a poorly organized background without a well-developed posterior dominant rhythm. The remainder of the background was characterized by an attenuated background with mostly low amplitude beta activity. Photic stimulation resulted in no significant changes. There were no epileptiform abnormalities. The EKG showed a regular rhythm. There was significant artifact throughout the recording that impaired interpretation. EEG Classification * Excessive beta * Artifact EEG Impression This EEG is mildly abnormal. Excessive beta can be seen with certain medications (e.g. benzodiazepines). There were no epileptiform abnormalities noted. Compared to the prior EEG dated 12/24/2019 it is similar. INTERPRETING NEUROLOGIST: Jill Boone MD, FRCPC Board Certified in Neurology, with special qualification in Child Neurology, and in Clinical Neurophysiology [facility]
[2020-01-23] MEDS: CEFEPIME 1 GM/D5W RTU 1 GM/50 ML RTUPB IV SCH (21:26)
[2020-01-23] MEDS ORDERED: CEFEPIME HCL 1 GM in DEXTROSE 5%-WATER 50 ML IV SCH (22:00)
[2020-01-24] MEDS: LORAZEPAM INJ 2 MG/1 ML VIAL IV SCH ×3 (03:00→18:50)
[2020-01-24] MEDS: THIAMINE HCL 500 MG in NORMAL SALINE 250 ML IV SCH ×2 (05:56→18:49)
[2020-01-24 06:51] LABS: ABSOLUTE EOSINOPHILS # (AUTO) 0.1 10^3/uL (0.0-0.6); ABSOLUTE LYMPHOCYTES (AUTO) 1.7 10^3/uL (0.5-4.7); ABSOLUTE MONOCYTES (AUTO) 0.6 10^3/uL (0.1-1.4); ABSOLUTE NEUT (AUTO) 4.1 10^3/uL (1.7-8.2); BASOPHILS % (AUTO) 0.5 % (0-2); EOSINOPHILS % (AUTO) 1.3 % (0-6); HEMATOCRIT 37.1 % (37.9-51.0); LYMPHOCYTES % (AUTO) 25.6 % (13-45); MEAN CORPUSCULAR HEMOGLOBIN 34.7 pg (27.0-33.4); MEAN CORPUSCULAR VOLUME 99 fl (80-97); MONOCYTES % (AUTO) 9.6 % (3-13); PLATELET COUNT 126 10^3/uL (150-450); RED BLOOD COUNT 3.74 10^6/uL (4.35-5.55); RED CELL DISTRIBUTION WIDTH 15.3 % (11.5-14.0); TOTAL CELLS COUNTED % (AUTO) 100 %; WHITE BLOOD COUNT 6.5 10^3/uL (4.0-10.5)
[2020-01-24 07:16] LABS: ANION GAP 7 (5-19); CALCIUM 8.4 mg/dL (8.4-10.2); CARBON DIOXIDE 25 mmol/L (22-30); CHLORIDE 101 mmol/L (98-107); GLUCOSE 88 mg/dL (75-110); POTASSIUM 3.1 mmol/L (3.6-5.0)
[2020-01-24 07:18] LABS: BLOOD UREA NITROGEN < 2 mg/dL (7-20)
[2020-01-24] MEDS ORDERED: POTASSIUM CHLORIDE 10 MEQ TABLET.ER PO ONE (08:00)
--- NOTE | 2020-01-24 08:46 | PDOC PROGRESS REPORT ---
Subjective Progress Note for:: 01/24/20 Subjective:: Patient is currently doing same Is currently on alcohol withdrawal protocol No seizures activity since admissions Patient still required a restraint currently on a tapering dose of the 2 mg IV every 8 PRN Ativan According to the nursing staff patient still sometimes combative Patient's today's alert awake still confused Patient's potassium is low Reason For Visit: SEIZURE,ALCOHOL WITHDRAWAL Physical Exam Vital Signs: Temp Pulse Resp BP Pulse Ox 97.9 F 68 16 144/73 H 100 01/24/20 00:46 01/24/20 02:00 01/24/20 00:46 01/24/20 00:46 01/24/20 00:46 Intake & Output 01/23/20 01/24/20 01/25/20 06:59 06:59 06:59 Intake Total 805 3618 Output Total 100 Balance 805 3518 Weight 72.4 kg 72.6 kg General appearance: PRESENT: no acute distress, well-developed, well-nourished Head exam: PRESENT: atraumatic, normocephalic Eye exam: PRESENT: conjunctiva pink, EOMI, PERRLA. ABSENT: scleral icterus Ear exam: PRESENT: normal external ear exam Mouth exam: PRESENT: moist, tongue midline Neck exam: PRESENT: full ROM. ABSENT: carotid bruit, JVD, lymphadenopathy, thyromegaly Respiratory exam: PRESENT: clear to auscultation [place] Cardiovascular exam: PRESENT: RRR. ABSENT: diastolic murmur, rubs, systolic murmur Pulses: PRESENT: normal dorsalis pedis pul, +2 pedal pulses bilateral Vascular exam: PRESENT: normal capillary refill GI/Abdominal exam: PRESENT: normal bowel sounds, soft. ABSENT: distended, guarding, mass, organolmegaly, rebound, tenderness Rectal exam: PRESENT: deferred Neurological exam: PRESENT: alert, altered, awake. ABSENT: motor sensory deficit Psychiatric exam: PRESENT: appropriate affect, normal mood. ABSENT: homicidal ideation, suicidal ideation Skin exam: PRESENT: dry, intact, warm. ABSENT: cyanosis, rash Results Laboratory Results: 01/24/20 05:48 01/24/20 05:48 01/24/20 01/24/20 05:48 05:48 WBC 6.5 RBC 3.74 L Hgb 13.0 L Hct 37.1 L MCV 99 H MCH 34.7 H MCHC 35.0 RDW 15.3 H Plt Count 126 L Seg Neutrophils % 63.0 Sodium 133.3 L Potassium 3.1 L Chloride 101 Carbon Dioxide 25 Anion Gap 7 BUN < 2 L Creatinine 0.63 Est GFR ( Amer) > 60 Glucose 88 Calcium 8.4 Magnesium 1.6 Impressions: Abdomen Ultrasound 01/22/20 00:00 IMPRESSION: 1. The pancreas, proximal and distal segments of the abdominal aorta, IVC, and portal vein obscured by overlying bowel gas. 2. Fatty liver. Head CT 01/22/20 09:59 IMPRESSION: NORMAL BRAIN CT WITHOUT CONTRAST. EVIDENCE OF ACUTE STROKE: NO. Head MRI 01/22/20 11:12 IMPRESSION: NORMAL MRI OF THE BRAIN WITHOUT INTRAVENOUS GADOLINIUM CONTRAST. EVIDENCE OF ACUTE STROKE: NO. Chest X-Ray 01/23/20 00:00 IMPRESSION: NO ACUTE RADIOGRAPHIC FINDING IN THE CHEST. Assessment & Plan - Diagnosis (1) Altered mental status Qualifiers: Coma depth: [place] coma 13-15 Is this a current diagnosis for this admission?: Yes Plan: Most likely due to the alcohol withdrawal currently all stable (2) Alcohol withdrawal syndrome Qualifiers: Complication of substance-induced condition: with delirium Qualified Code(s): F10.231 - Alcohol dependence with withdrawal delirium Is this a current diagnosis for this admission?: Yes Plan: Continues the alcohol withdrawal protocol as per discussed with the civilian technician will give a high dose of thiamine (3) Alcoholic hepatitis Qualifiers: Ascites presence: without ascites Qualified Code(s): K70.10 - Alcoholic hepatitis without ascites Is this a current diagnosis for this admission?: Yes Plan: Patient's ultrasound is all stable (4) Seizure Is this a current diagnosis for this admission?: Yes Plan: No seizures activity since admissions will continue to monitor (5) Encephalopathy Is this a current diagnosis for this admission?: Yes Plan: Due to the alcohol currently still improving but because of the medications still unclear (6) Tachycardia Is this a current diagnosis for this admission?: Yes Plan: Currently stable - Time Time Spent with patient: 25-34 minutes Level of Care: IMCU Medications reviewed and adjusted accordingly: Yes Anticipated discharge: Home Within: Other - Plan Summary Plan Summary: Continues to current medications discussed with nursing staff discussed with the daughter regarding the patient's current conditions
[2020-01-24] MEDS: CEFEPIME 1 GM/D5W RTU 1 GM/50 ML RTUPB IV SCH ×2 (10:32→23:00)
[2020-01-24] MEDS: PANTOPRAZOLE SODIUM 40 MG VIAL IV SCH ×2 (10:33→23:00)
[2020-01-24] MEDS: LORAZEPAM INJ 2 MG/1 ML VIAL IV PRN ×3 (12:19→23:20)
[2020-01-24] MEDS: ENOXAPARIN SODIUM INJ 40 MG/0.4 ML DISP.SYRIN SUBCUT SCH (12:22)
[2020-01-24] MEDS: NORMAL SALINE 1000 ML 1,000 ML with POTASSIUM CHLORIDE 20 MEQ, MAGNESIUM SULFATE 8 MEQ,... IV SCH ×4 (18:49)
[2020-01-25] MEDS: LORAZEPAM INJ 2 MG/1 ML VIAL IV SCH (02:02)
[2020-01-25 06:00] LABS: ABSOLUTE EOSINOPHILS # (AUTO) 0.1 10^3/uL (0.0-0.6); ABSOLUTE LYMPHOCYTES (AUTO) 1.6 10^3/uL (0.5-4.7); ABSOLUTE MONOCYTES (AUTO) 0.7 10^3/uL (0.1-1.4); ABSOLUTE NEUT (AUTO) 5.4 10^3/uL (1.7-8.2); BASOPHILS % (AUTO) 0.5 % (0-2); HEMOGLOBIN 13.8 g/dL (13.5-17.0); LYMPHOCYTES % (AUTO) 20.5 % (13-45); MEAN CORPUSCULAR HEMOGLOBIN 34.7 pg (27.0-33.4); MEAN CORPUSCULAR HGB CONC 35.3 g/dL (32.0-36.0); MEAN CORPUSCULAR VOLUME 98 fl (80-97); MONOCYTES % (AUTO) 8.7 % (3-13); PLATELET COUNT 139 10^3/uL (150-450); RED BLOOD COUNT 3.97 10^6/uL (4.35-5.55); RED CELL DISTRIBUTION WIDTH 15.1 % (11.5-14.0); SEGMENTED NEUTROPHILS % (AUTO) 69.3 % (42-78); TOTAL CELLS COUNTED % (AUTO) 100 %; WHITE BLOOD COUNT 7.8 10^3/uL (4.0-10.5)
[2020-01-25 06:22] LABS: ALBUMIN 3.7 g/dL (3.5-5.0); ALKALINE PHOSPHATASE 113 U/L (38-126); ANION GAP 12 (5-19); ASPARTATE AMINO TRANSFERASE 188 U/L (17-59); BILIRUBIN,DIRECT 0.2 mg/dL (0.0-0.4); BILIRUBIN,TOTAL 1.2 mg/dL (0.2-1.3); BLOOD UREA NITROGEN 2 mg/dL (7-20); CARBON DIOXIDE 22 mmol/L (22-30); CHLORIDE 100 mmol/L (98-107); GLUCOSE 94 mg/dL (75-110); POTASSIUM 3.4 mmol/L (3.6-5.0); TOTAL PROTEIN 7.1 g/dL (6.3-8.2)
--- NOTE | 2020-01-25 10:55 | PDOC PROGRESS REPORT ---
Subjective Progress Note for:: 01/25/20 Subjective:: Patient still currently doing same getting little bit better Still agitated and combative sometimes No seizure activity since admissions Patient is currently on alcohol withdrawal protocol with the 2 mg Ativan twice a day patient's p.o. intake is fair Reason For Visit: SEIZURE,ALCOHOL WITHDRAWAL Physical Exam Vital Signs: Temp Pulse Resp BP Pulse Ox 97.7 F 99 16 142/95 H 99 01/25/20 08:45 01/25/20 08:45 01/25/20 08:45 01/25/20 08:45 01/25/20 08:45 Intake & Output 01/24/20 01/25/20 01/26/20 06:59 06:59 06:59 Intake Total 3873 1562 Output Total 100 Balance 3773 1562 Weight 72.6 kg 71.4 kg General appearance: PRESENT: no acute distress, well-developed, well-nourished Head exam: PRESENT: atraumatic, normocephalic Eye exam: PRESENT: conjunctiva pink, EOMI, PERRLA. ABSENT: scleral icterus Ear exam: PRESENT: normal external ear exam Mouth exam: PRESENT: moist, tongue midline Neck exam: PRESENT: full ROM. ABSENT: carotid bruit, JVD, lymphadenopathy, thyromegaly Respiratory exam: PRESENT: clear to auscultation [place] Cardiovascular exam: PRESENT: RRR. ABSENT: diastolic murmur, rubs, systolic murmur Pulses: PRESENT: normal dorsalis pedis pul, +2 pedal pulses bilateral Vascular exam: PRESENT: normal capillary refill GI/Abdominal exam: PRESENT: normal bowel sounds, soft. ABSENT: distended, guarding, mass, organolmegaly, rebound, tenderness Rectal exam: PRESENT: deferred Musculoskeletal exam: PRESENT: ambulatory Neurological exam: PRESENT: alert, altered, awake, oriented to person. ABSENT: motor sensory deficit Psychiatric exam: PRESENT: appropriate affect, normal mood. ABSENT: homicidal ideation, suicidal ideation Skin exam: PRESENT: dry, intact, warm. ABSENT: cyanosis, rash Results Laboratory Results: 01/25/20 05:35 01/25/20 05:35 01/25/20 01/25/20 05:35 05:35 WBC 7.8 RBC 3.97 L Hgb 13.8 Hct 39.0 MCV 98 H MCH 34.7 H MCHC 35.3 RDW 15.1 H Plt Count 139 L Seg Neutrophils % 69.3 Sodium 133.8 L Potassium 3.4 L Chloride 100 Carbon Dioxide 22 Anion Gap 12 BUN 2 L Creatinine 0.60 Est GFR ( Amer) > 60 Glucose 94 Calcium 9.0 Magnesium 1.6 Total Bilirubin 1.2 AST 188 H Alkaline Phosphatase 113 Total Protein 7.1 Albumin 3.7 01/22/20 14:03 Clean Catch Midstream Urine Culture - Final NO GROWTH 2 DAYS Impressions: Abdomen Ultrasound 01/22/20 00:00 IMPRESSION: 1. The pancreas, proximal and distal segments of the abdominal aorta, IVC, and portal vein obscured by overlying bowel gas. 2. Fatty liver. Head CT 01/22/20 09:59 IMPRESSION: NORMAL BRAIN CT WITHOUT CONTRAST. EVIDENCE OF ACUTE STROKE: NO. Head MRI 01/22/20 11:12 IMPRESSION: NORMAL MRI OF THE BRAIN WITHOUT INTRAVENOUS GADOLINIUM CONTRAST. EVIDENCE OF ACUTE STROKE: NO. Chest X-Ray 01/23/20 00:00 IMPRESSION: NO ACUTE RADIOGRAPHIC FINDING IN THE CHEST. Assessment & Plan - Diagnosis (1) Altered mental status Qualifiers: Coma depth: [place] coma 13-15 Is this a current diagnosis for this admission?: Yes Plan: Most likely due to the alcohol withdrawal currently all stable (2) Alcohol withdrawal syndrome Qualifiers: Complication of substance-induced condition: with delirium Qualified Code(s): F10.231 - Alcohol dependence with withdrawal delirium Is this a current diagnosis for this admission?: Yes Plan: Continues the alcohol withdrawal protocol as per discussed with the tap puller will give a high dose of thiamine (3) Alcoholic hepatitis Qualifiers: Ascites presence: without ascites Qualified Code(s): K70.10 - Alcoholic hepatitis without ascites Is this a current diagnosis for this admission?: Yes Plan: Patient's ultrasound is all stable (4) Seizure Is this a current diagnosis for this admission?: Yes Plan: No seizures activities (5) Encephalopathy Is this a current diagnosis for this admission?: Yes Plan: Currently improving since (6) Tachycardia Is this a current diagnosis for this admission?: Yes - Time Time Spent with patient: 15-24 minutes Level of Care: IMCU Medications reviewed and adjusted accordingly: Yes Anticipated discharge: Other Within: Other - Plan Summary Plan Summary: Adjust IV fluids adjust the banana bag replace the potassiums Discussed with the nursing staff about adjust the medications Discussed with the daughter regarding the patient's current conditions
[2020-01-25] MEDS ORDERED: POTASSIUM CHLORIDE 10 MEQ TABLET.ER PO ONE (11:00)
[2020-01-25] MEDS: ENOXAPARIN SODIUM INJ 40 MG/0.4 ML DISP.SYRIN SUBCUT SCH (11:03)
[2020-01-25] MEDS: CEFEPIME 1 GM/D5W RTU 1 GM/50 ML RTUPB IV SCH ×2 (11:09→21:04)
[2020-01-25] MEDS: LORAZEPAM 1 MG TABLET PO SCH ×2 (11:09→21:04)
[2020-01-25] MEDS: PANTOPRAZOLE SODIUM 40 MG VIAL IV SCH ×2 (11:09→21:04)
[2020-01-25] MEDS: LORAZEPAM INJ 2 MG/1 ML VIAL IV PRN ×3 (12:42→23:14)
[2020-01-25] MEDS ORDERED: LORAZEPAM INJ 2 MG/1 ML VIAL IV SCH (15:00)
[2020-01-25] MEDS ORDERED: NORMAL SALINE 1000 ML 1,000 ML with POTASSIUM CHLORIDE 20 MEQ, MAGNESIUM SULFATE 8 MEQ,... IV SCH ×5 (18:00)
[2020-01-26 05:51] LABS: ABSOLUTE EOSINOPHILS # (AUTO) 0.1 10^3/uL (0.0-0.6); ABSOLUTE LYMPHOCYTES (AUTO) 1.1 10^3/uL (0.5-4.7); ABSOLUTE MONOCYTES (AUTO) 0.8 10^3/uL (0.1-1.4); BASOPHILS % (AUTO) 0.5 % (0-2); HEMATOCRIT 42.5 % (37.9-51.0); HEMOGLOBIN 14.8 g/dL (13.5-17.0); LYMPHOCYTES % (AUTO) 15.3 % (13-45); MEAN CORPUSCULAR HEMOGLOBIN 34.2 pg (27.0-33.4); MEAN CORPUSCULAR HGB CONC 34.8 g/dL (32.0-36.0); MEAN CORPUSCULAR VOLUME 99 fl (80-97); MONOCYTES % (AUTO) 11.1 % (3-13); PLATELET COUNT 151 10^3/uL (150-450); RED BLOOD COUNT 4.31 10^6/uL (4.35-5.55); RED CELL DISTRIBUTION WIDTH 14.8 % (11.5-14.0); SEGMENTED NEUTROPHILS % (AUTO) 71.1 % (42-78); TOTAL CELLS COUNTED % (AUTO) 100 %
[2020-01-26 06:23] LABS: ANION GAP 5 (5-19); BLOOD UREA NITROGEN 3 mg/dL (7-20); CALCIUM 9.7 mg/dL (8.4-10.2); CARBON DIOXIDE 30 mmol/L (22-30); CHLORIDE 100 mmol/L (98-107); GLUCOSE 114 mg/dL (75-110); POTASSIUM 3.4 mmol/L (3.6-5.0)
[2020-01-26] MEDS: ENOXAPARIN SODIUM INJ 40 MG/0.4 ML DISP.SYRIN SUBCUT SCH (10:03)
[2020-01-26] MEDS: CEFEPIME 1 GM/D5W RTU 1 GM/50 ML RTUPB IV SCH (10:03)
[2020-01-26] MEDS: LORAZEPAM 1 MG TABLET PO SCH (10:03)
[2020-01-26] MEDS: PANTOPRAZOLE SODIUM 40 MG VIAL IV SCH ×2 (10:03→22:22)
--- NOTE | 2020-01-26 10:23 | PDOC PROGRESS REPORT ---
Subjective Progress Note for:: 01/26/20 Subjective:: Patient is currently doing well still having some confusion Patient's denied any chest pain no short of breath Patient currently on a tapering dose of the ATIVAN Since p.o. intake is good No seizures activity Reason For Visit: SEIZURE,ALCOHOL WITHDRAWAL Physical Exam Vital Signs: Temp Pulse Resp BP Pulse Ox 97.4 F 97 20 140/87 H 100 01/26/20 07:39 01/26/20 07:39 01/26/20 07:39 01/26/20 07:39 01/26/20 07:39 Intake & Output 01/25/20 01/26/20 01/27/20 06:59 06:59 06:59 Intake Total 6106 433 2127 Balance 5231 522 3786 Weight 71.4 kg 72.9 kg General appearance: PRESENT: no acute distress, well-developed, well-nourished Head exam: PRESENT: atraumatic, normocephalic Eye exam: PRESENT: conjunctiva pink, EOMI, PERRLA. ABSENT: scleral icterus Ear exam: PRESENT: normal external ear exam Mouth exam: PRESENT: moist, tongue midline Neck exam: PRESENT: full ROM. ABSENT: carotid bruit, JVD, lymphadenopathy, thyromegaly Respiratory exam: PRESENT: clear to auscultation edwin Cardiovascular exam: PRESENT: RRR. ABSENT: diastolic murmur, rubs, systolic murmur Pulses: PRESENT: normal dorsalis pedis pul, +2 pedal pulses bilateral Vascular exam: PRESENT: normal capillary refill GI/Abdominal exam: PRESENT: normal bowel sounds, soft. ABSENT: distended, guarding, mass, organolmegaly, rebound, tenderness Rectal exam: PRESENT: deferred Neurological exam: PRESENT: alert, awake, oriented to person. ABSENT: motor sensory deficit Psychiatric exam: PRESENT: appropriate affect, normal mood. ABSENT: homicidal ideation, suicidal ideation Skin exam: PRESENT: dry, intact, warm. ABSENT: cyanosis, rash Results Laboratory Results: 01/26/20 05:16 01/26/20 05:16 01/26/20 01/26/20 05:16 05:16 WBC 7.0 RBC 4.31 L Hgb 14.8 Hct 42.5 MCV 99 H MCH 34.2 H MCHC 34.8 RDW 14.8 H Plt Count 151 Seg Neutrophils % 71.1 Sodium 135.0 L Potassium 3.4 L Chloride 100 Carbon Dioxide 30 Anion Gap 5 BUN 3 L Creatinine 0.61 Est GFR ( Amer) > 60 Glucose 114 H Calcium 9.7 Impressions: Abdomen Ultrasound 01/22/20 00:00 IMPRESSION: 1. The pancreas, proximal and distal segments of the abdominal aorta, IVC, and portal vein obscured by overlying bowel gas. 2. Fatty liver. Head CT 01/22/20 09:59 IMPRESSION: NORMAL BRAIN CT WITHOUT CONTRAST. EVIDENCE OF ACUTE STROKE: NO. Head MRI 01/22/20 11:12 IMPRESSION: NORMAL MRI OF THE BRAIN WITHOUT INTRAVENOUS GADOLINIUM CONTRAST. EVIDENCE OF ACUTE STROKE: NO. Chest X-Ray 01/23/20 00:00 IMPRESSION: NO ACUTE RADIOGRAPHIC FINDING IN THE CHEST. Assessment & Plan - Diagnosis (1) Altered mental status Qualifiers: Coma depth: [place] coma 13-15 Is this a current diagnosis for this admission?: Yes Plan: Most likely due to the alcohol withdrawal currently all stable (2) Alcohol withdrawal syndrome Qualifiers: Complication of substance-induced condition: with delirium Qualified Code(s): F10.231 - Alcohol dependence with withdrawal delirium Is this a current diagnosis for this admission?: Yes Plan: Continues the alcohol withdrawal protocol as per discussed with the screen printing machine loader unloader will give a high dose of thiamine (3) Alcoholic hepatitis Qualifiers: Ascites presence: without ascites Qualified Code(s): K70.10 - Alcoholic h epatitis without ascites Is this a current diagnosis for this admission?: Yes Plan: Patient's ultrasound is all stable (4) Seizure Is this a current diagnosis for this admission?: Yes Plan: No seizures activities (5) Encephalopathy Is this a current diagnosis for this admission?: Yes Plan: Currently improving since (6) Tachycardia Is this a current diagnosis for this admission?: Yes - Time Time Spent with patient: 15-24 minutes Level of Care: IMCU Medications reviewed and adjusted accordingly: Yes Anticipated discharge: Other Within: Other - Plan Summary Plan Summary: Currently doing well
[2020-01-26] MEDS ORDERED: POTASSIUM CHLORIDE 10 MEQ TABLET.ER PO ONE (11:00)
[2020-01-26] MEDS ORDERED: NORMAL SALINE 1000 ML 1,000 ML with POTASSIUM CHLORIDE 20 MEQ, MAGNESIUM SULFATE 8 MEQ,... IV SCH ×5 (18:00)
[2020-01-26] MEDS ORDERED: LORAZEPAM 1 MG TABLET PO SCH (22:00)
[2020-01-27 06:53] LABS: ABSOLUTE EOSINOPHILS # (AUTO) 0.2 10^3/uL (0.0-0.6); ABSOLUTE LYMPHOCYTES (AUTO) 1.5 10^3/uL (0.5-4.7); ABSOLUTE MONOCYTES (AUTO) 0.7 10^3/uL (0.1-1.4); ABSOLUTE NEUT (AUTO) 4.1 10^3/uL (1.7-8.2); BASOPHILS % (AUTO) 0.7 % (0-2); EOSINOPHILS % (AUTO) 3.3 % (0-6); HEMATOCRIT 41.1 % (37.9-51.0); LYMPHOCYTES % (AUTO) 22.6 % (13-45); MEAN CORPUSCULAR HEMOGLOBIN 34.5 pg (27.0-33.4); MEAN CORPUSCULAR VOLUME 101 fl (80-97); MONOCYTES % (AUTO) 11.3 % (3-13); PLATELET COUNT 155 10^3/uL (150-450); RED BLOOD COUNT 4.06 10^6/uL (4.35-5.55); RED CELL DISTRIBUTION WIDTH 15.2 % (11.5-14.0); SEGMENTED NEUTROPHILS % (AUTO) 62.1 % (42-78); TOTAL CELLS COUNTED % (AUTO) 100 %; WHITE BLOOD COUNT 6.5 10^3/uL (4.0-10.5)
[2020-01-27 07:22] LABS: ANION GAP 6 (5-19); BLOOD UREA NITROGEN 7 mg/dL (7-20); CALCIUM 9.9 mg/dL (8.4-10.2); CARBON DIOXIDE 27 mmol/L (22-30); CHLORIDE 102 mmol/L (98-107); GLUCOSE 100 mg/dL (75-110); POTASSIUM 4.1 mmol/L (3.6-5.0)
[2020-01-27] MEDS ORDERED: LORAZEPAM 1 MG TABLET PO SCH (10:00)
[2020-01-27] MEDS ORDERED: THIAMINE HCL 100 MG TABLET PO SCH (10:00)
[2020-01-27] MEDS ORDERED: LORAZEPAM 0.5 MG TABLET PO SCH (10:00)
[2020-01-27] MEDS: ENOXAPARIN SODIUM INJ 40 MG/0.4 ML DISP.SYRIN SUBCUT SCH (10:26)
--- NOTE | 2020-01-27 14:00 | PDOC DISCHARGE SUMMARY ---
Impression - Admit/DC Date/PCP Admission Date/Primary Care Provider: 01/22/20 16:16 AUREA SANTOYO MD Discharge Date: 01/27/20 - Discharge Diagnosis (1) Altered mental status Is this a current diagnosis for this admission?: Yes (2) Alcohol withdrawal syndrome Is this a current diagnosis for this admission?: Yes (3) Alcoholic hepatitis Is this a current diagnosis for this admission?: Yes (4) Seizure Is this a current diagnosis for this admission?: Yes (5) Encephalopathy Is this a current diagnosis for this admission?: Yes (6) Tachycardia Is this a current diagnosis for this admission?: Yes - Additional Information Discharge Diet: As Tolerated Discharge Activity: Activity As Tolerated Referrals: MATT YI MD [NO LOCAL MD] - (Called and left msg for follow-up appointment as soon as possible. [phone] ) AUREA SANTOYO MD [Primary Care Provider] - Prescriptions: Lorazepam [Ativan 0.5 mg Tablet] 0.25 mg PO Q12 #12 tablet Pantoprazole Sodium [Protonix [address] Tablet] 40 mg PO Q6AM #90 tablet.dr Thiamine HCl [Thiamine 100 mg Tablet] 100 mg PO DAILY #90 tablet Home Medications: Dorzolamide HCl/Timolol Maleat [Cosopt Eye Drops] 1 drop OU BID 12/23/19 Latanoprost [Xalatan 0.005% Oph Soln 2.5 ml] 1 drop OU QAM 12/23/19 Levothyroxine Sodium 100 mcg PO Q6AM 12/23/19 Multivitamin [Multiple Vitamins] 1 tab PO DAILY 12/23/19 Folic Acid [Folvite 1 mg Tablet] 1 mg PO DAILY #30 tablet 12/24/19 Thiamine HCl [Thiamine 100 mg Tablet] 100 mg PO DAILY #30 tablet 12/24/19 Lorazepam [Ativan 0.5 mg Tablet] 0.25 mg PO Q12 #12 tablet 01/27/20 Pantoprazole Sodium [Protonix [address] Tablet] 40 mg PO Q6AM #90 tablet.dr 01/27/20 Thiamine HCl [Thiamine 100 mg Tablet] 100 mg PO DAILY #90 tablet 01/27/20 History of Present Illiness History of Present Illness: LIBRA ALTAMIRANO is a 64 year old male This is a 64-year-old male's fairly a new patient I saw only 1 times in the office last week discharge from the [facility] from the seizures activities and alcohol abuse Patient was admitted last month in the [facility] because of the seizures activities and alcohol abuse patient was put on a thiamine multivitamin patient have initial EEG was done was negative CT of the head was negative at the time and patient was not require any prophylactic medicines for the seizures Patients have a longstanding history of the alcohol abuse per the patient and the daughter used to live in [place] recently moved with her daughter Patient usually drinks 6 beer a day or more but according to the daughter he is not drinking recently Also have an elevated LFT most likely alcohol-related patient have a hepatitis panel done in the office was negative Patient have a vitamin B12 level and other blood work was all stable Patient came today's because of the noticed that patients have a couple of seizures in the morning according to the daughter in the emergency department patient having 2 or 3 seizures required IV lorazepam total of 4 mg ER physicians call me to admit the patient as he thought may be most likely alcohol withdrawal for the alcohol level is low Patient's is a postictal phase ER physician order the MRI of the head to further evaluate Very extensive discussions with the daughter about the patient alcohol-related abuse patient have a outpatients appointment to the neurology We will put the patient is in IMCU seizures precautions put on alcohol withdrawal protocol We will start the patient on a Keppra but continues ongoing seizures activity We will repeat the EEG again Hospital Course Hospital Course: Is a 64-year-old male presents in emergency department with the seizures activity Patient is have admissions a couple of weeks back with the same problems more alcohol-related In the emergency department patient is have a clear picture with the alcohol wi thdrawal and seizures pretty much coming from alcohol withdrawal patient start giving the Ativan IV and put on a IV banana bag and alcohol withdrawal protocol Patient having no seizures activity since admissions patient's was tapering dose of the Ativan patient's p.o. intake is good patient is walking the hallway without any problems Patient's confusion is pretty much all resolved Ultrasound of the abdomen was all stable for the elevated LFT hepatitis panel is all negative Patient's at this point is back to the baseline discussed with the neurology as outpatient suggest that it was alcohol-related no need to put any prophylactic seizures medications Patient is repeat EEG is all stable patient have a follow-up appointment with the neurology to further evaluations with ongoing seizuresDue to the mostly alcohol-related Very extensive discussions with the daughter regarding the patient's current conditions patient is currently out of the alcohol withdrawal symptoms currently doing well continues to follow with the AA program and will follow in office 1 week and follow-up with the neurology Initially treated with the high dose thiamine due to the possible Wernicke's encephalopathy due to the ongoing alcohol currently all resolved patient's continues to p.o. thiamine and multivitamins at home Physical Exam Vital Signs: Temp Pulse Resp BP Pulse Ox 98.1 F 94 16 105/71 100 01/27/20 11:38 01/27/20 11:38 01/27/20 11:38 01/27/20 11:38 01/27/20 11:38 Intake & Output 01/26/20 01/27/20 01/28/20 06:59 06:59 06:59 Intake Total 940 2154 480 Balance 940 2154 480 Weight 72.9 kg 70.7 kg General appearance: PRESENT: no acute distress, well-developed, well-nourished Head exam: PRESENT: atraumatic, normocephalic Eye exam: PRESENT: conjunctiva pink, EOMI, PERRLA. ABSENT: scleral icterus Ear exam: PRESENT: normal external ear exam Mouth exam: PRESENT: moist, tongue midline Neck exam: ABSENT: carotid bruit, JVD, lymphadenopathy, thyromegaly Respiratory exam: PRESENT: clear to auscultation edwin. ABSENT: rales, rhonchi, wheezes Cardiovascular exam: PRESENT: RRR. ABSENT: diastolic murmur, rubs, systolic murmur Pulses: PRESENT: normal dorsalis pedis pul Vascular exam: PRESENT: normal capillary refill GI/Abdominal exam: PRESENT: normal bowel sounds, soft. ABSENT: distended, guarding, mass, organolmegaly, rebound, tenderness Rectal exam: PRESENT: deferred Extremities exam: PRESENT: full ROM. ABSENT: calf tenderness, clubbing, pedal edema Neurological exam: PRESENT: alert, awake, oriented to person, oriented to place, oriented to time, oriented to situation, CN II-XII grossly intact. ABSENT: motor sensory deficit Psychiatric exam: PRESENT: appropriate affect, normal mood. ABSENT: homicidal ideation, suicidal ideation Skin exam: PRESENT: dry, intact, warm. ABSENT: cyanosis, rash Results Laboratory Results: WBC 6.5 10^3/uL (4.0-10.5) 01/27/20 05:45 RBC 4.06 10^6/uL (4.35-5.55) L 01/27/20 05:45 Hgb 14.0 g/dL (13.5-17.0) 01/27/20 05:45 Hct 41.1 % (37.9-51.0) 01/27/20 05:45 MCV 101 fl (80-97) H 01/27/20 05:45 MCH 34.5 pg (27.0-33.4) H 01/27/20 05:45 MCHC 34.0 g/dL (32.0-36.0) 01/27/20 05:45 RDW 15.2 % (11.5-14.0) H 01/27/20 05:45 Plt Count 155 10^3/uL (150-450) 01/27/20 05:45 Lymph % (Auto) 22.6 % (13-45) 01/27/20 05:45 [place] % (Auto) 11.3 % (3-13) 01/27/20 05:45 Eos % (Auto) 3.3 % (0-6) 01/27/20 05:45 Baso % (Auto) 0.7 % (0-2) 01/27/20 05:45 Absolute Neuts (auto) 4.1 10^3/uL (1.7-8.2) 01/27/20 05:45 Absolute Lymphs (auto) 1.5 10^3/uL (0.5-4.7) 01/27/20 05:45 Absolute Monos (auto) 0.7 10^3/uL (0.1-1.4) 01/27/20 05:45 Absolute Eos (auto) 0.2 10^3/uL (0.0-0.6) 01/27/20 05:45 Absolute Basos (auto) 0.0 10^3/uL (0.0-0.2) 01/27/20 05:45 Seg Neutrophils % 62.1 % (42-78) 01/27/20 05:45 Sodium 135.1 mmol/L (137-145) L 01/27/20 05:45 Potassium 4.1 mmol/L (3.6-5.0) 01/27/20 05:45 Chloride 102 mmol/L (98-107) 01/27/20 05:45 Carbon Dioxide 27 mmol/L (22-30) 01/27/20 05:45 Anion Gap 6 (5-19) 01/27/20 05:45 BUN 7 mg/dL (7-20) 01/27/20 05:45 Creatinine 0.62 mg/dL (0.52-1.25) 01/27/20 05:45 Est GFR ( Amer) > 60 (>60) 01/27/20 05:45 Est GFR (MDRD) Non-Af > 60 (>60) 01/27/20 05:45 Glucose 100 mg/dL (75-110) 01/27/20 05:45 POC Glucose 131 mg/dL (70-110) H 01/22/20 11:46 Calcium 9.9 mg/dL (8.4-10.2) 01/27/20 05:45 Magnesium 1.6 mg/dL (1.6-2.3) 01/25/20 05:35 Total Bilirubin 1.2 mg/dL (0.2-1.3) 01/25/20 05:35 Direct Bilirubin 0.2 mg/dL (0.0-0.4) 01/25/20 05:35 Neonat Total Bilirubin Not Reportable 01/25/20 05:35 Neonat Direct Bilirubin Not Reportable 01/25/20 05:35 Neonat Indirect Bili Not Reportable 01/25/20 05:35 AST 188 U/L (17-59) H 01/25/20 05:35 ALT 57 U/L (<50) H 01/25/20 05:35 Alkaline Phosphatase 113 U/L (38-126) 01/25/20 05:35 Ammonia < 8.7 umol/L (9-33) L 01/24/20 09:30 Total Protein 7.1 g/dL (6.3-8.2) 01/25/20 05:35 Albumin 3.7 g/dL (3.5-5.0) 01/25/20 05:35 TSH 2.24 uIU/mL (0.47-4.68) 01/22/20 11:50 Free T4 0.69 ng/dL (0.78-2.19) L 01/22/20 11:50 Urine Color YELLOW 01/22/20 14:03 Urine Appearance SLIGHTLY-CLOUDY 01/22/20 14:03 Urine pH 6.0 (5.0-9.0) 01/22/20 14:03 Ur Specific [place] 1.017 01/22/20 14:03 Urine Protein 30 mg/dL (NEGATIVE) H 01/22/20 14:03 Urine Glucose (UA) NEGATIVE mg/dL (NEGATIVE) 01/22/20 14:03 Urine Ketones NEGATIVE mg/dL (NEGATIVE) 01/22/20 14:03 Urine Blood NEGATIVE (NEGATIVE) 01/22/20 14:03 Urine Nitrite NEGATIVE (NEGATIVE) 01/22/20 14:03 Urine Bilirubin NEGATIVE (NEGATIVE) 01/22/20 14:03 Urine Urobilinogen NEGATIVE mg/dL (<2.0) 01/22/20 14:03 Ur Leukocyte Esterase NEGATIVE (NEGATIVE) 01/22/20 14:03 Urine WBC (Auto) 1 /HPF 01/22/20 14:03 Urine RBC (Auto) 0 /HPF 01/22/20 14:03 U Hyaline Cast (Auto) 8 /LPF 01/22/20 14:03 Urine Bacteria (Auto) TRACE /HPF 01/22/20 14:03 Squamous Epi Cells Auto 2 /HPF 01/22/20 14:03 Urine Mucus (Auto) RARE /LPF 01/22/20 14:03 Urine Ascorbic Acid 20 (NEGATIVE) H 01/22/20 14:03 Salicylates < 1.0 mg/dL (2.0-20.0) L 01/22/20 11:50 Urine Opiates Screen NEGATIVE 01/22/20 14:03 Urine Methadone Screen NEGATIVE 01/22/20 14:03 Acetaminophen < 10 ug/mL (10-30) L 01/22/20 11:50 Ur Barbiturates Screen NEGATIVE 01/22/20 14:03 Ur Phencyclidine Scrn NEGATIVE 01/22/20 14:03 Ur Amphetamines Screen NEGATIVE 01/22/20 14:03 U Benzodiazepines Scrn NEGATIVE 01/22/20 14:03 Urine Cocaine Screen NEGATIVE 01/22/20 14:03 U Marijuana (THC) Screen NEGATIVE 01/22/20 14:03 Serum Alcohol < 10 mg/dL (NONE DETECTED) 01/22/20 11:50 Impressions: Abdomen Ultrasound 01/22/20 00:00 IMPRESSION: 1. The pancreas, proximal and distal segments of the abdominal aorta, IVC, and portal vein obscured by overlying bowel gas. 2. Fatty liver. Head CT 01/22/20 09:59 IMPRESSION: NORMAL BRAIN CT WITHOUT CONTRAST. EVIDENCE OF ACUTE STROKE: NO. Head MRI 01/22/20 11:12 IMPRESSION: NORMAL MRI OF THE BRAIN WITHOUT INTRAVENOUS GADOLINIUM CONTRAST. EVIDENCE OF ACUTE STROKE: NO. Chest X-Ray 01/22/20 11:59 IMPRESSION: NO ACUTE RADIOGRAPHIC FINDING IN THE CHEST. Chest X-Ray 01/23/20 00:00 IMPRESSION: NO ACUTE RADIOGRAPHIC FINDING IN THE CHEST. Plan Time Spent: Greater than 30 Minutes - Discussed with the daughter and the patient is regarding the all plans and follow-up with the neurology follow in office 1 week will give another week of the lorazepam Stroke Is this a Stroke Patient?: No Acute Heart Failure - Is this a Heart Failure Patient?: No
[2020-01-27 14:11] VITALS: BP 144/87
[2020-01-28] MEDS ORDERED: PANTOPRAZOLE SODIUM 40 MG TABLET.DR PO SCH (06:00)
== END 2020-01-27 15:00 | disposition home health service (06) | DRG 897 ==
LOC: ER 09:47 → EH 16:16 → 3W 18:05
PROVIDERS: ADMIT Family Medicine; ATTEND Family Medicine
DX: F10.231 Alcohol dependence with withdrawal delirium (principal); G93.40 Encephalopathy, unspecified; R56.9 Unspecified convulsions; K70.10 Alcoholic hepatitis without ascites; R00.0 Tachycardia, unspecified; Y90.0 Blood alcohol level of less than 20 mg/100 ml
CPT/HCPCS: 36415; 70450; 70551; 71045; 76700; 80048; 80053; 80076; 80307; 81001; 82140; 82962; 83735; 84439; 84443; 85025; 87040; 87086; 93005; 93010; 95819; 96372; 96374; 96376; 99285; C9113; J0692; J1650; J2060; J3411; J3475; J3480; J3490; J7030; J7050; J7060

== ENCOUNTER 2020-03-13 11:21 | Inpatient (IN) | payer MEDICARE, BC ==
[2020-03-13] MEDS ORDERED: NORMAL SALINE 1000 ML 1,000 ML IV ONE (11:38)
--- NOTE | 2020-03-13 11:40 | ER Document Report ---
ED Medical Screen (RME) - General Stated Complaint: ALTERED MENTAL STATUS Time Seen by Provider: 03/13/20 11:32 Primary Care Provider: AUREA SANTOYO MD [Primary Care Provider] - Follow up as needed Notes: Patient is a 65-year-old male who presents emergency department for having 3 seizures today. EMS was called out 3 times today in the first 2 times, the patient refused to be brought into the hospital. The third time, the patient was too altered to refuse and was given a total of 5 mg of Ativan IM. Patient has history of alcohol abuse and his last drink was yesterday. Exam: Patient alert, but confused. Tachycardic with heart rate in the 120s. I have greeted and performed a rapid initial assessment of this patient. A comprehensive ED assessment and evaluation of the patient, analysis of test results and completion of medical decision making process will be conducted by an additional ED providers. TRAVEL OUTSIDE OF THE [place] IN LAST 30 DAYS: No - Related Data Allergies/Adverse Reactions: No Known Allergies Allergy (Verified 01/22/20 09:54) Past Medical History - Past Medical History Cardiac Medical History: Reports: Hx Hypercholesterolemia, Hx Hypertension Denies: Hx Heart Attack Pulmonary Medical History: Denies: Hx Asthma Neurological Medical History: Denies: Hx Cerebrovascular Accident, Hx Seizures Renal/ Medical History: Denies: Hx Peritoneal Dialysis GI Medical History: Denies: Hx Hepatitis, Hx Hiatal Hernia, Hx Ulcer Psychiatric Medical History: Denies: Hx Depression Infectious Medical History: Denies: Hx Hepatitis Past Surgical History: Denies: Hx Open Heart Surgery, Hx Pacemaker - Immunizations Hx Diphtheria, Pertussis, Tetanus Vaccination: Yes Doctor's Discharge - Discharge Referrals: AUREA SANTOYO MD [Primary Care Provider] - Follow up as needed
[2020-03-13 11:56] LABS: HEMATOCRIT 45.6 % (37.9-51.0); HEMOGLOBIN 15.4 g/dL (13.5-17.0); MEAN CORPUSCULAR HEMOGLOBIN 32.2 pg (27.0-33.4); MEAN CORPUSCULAR HGB CONC 33.7 g/dL (32.0-36.0); MEAN CORPUSCULAR VOLUME 96 fl (80-97); PLATELET COUNT 228 10^3/uL (150-450); RED BLOOD COUNT 4.77 10^6/uL (4.35-5.55); RED CELL DISTRIBUTION WIDTH 14.8 % (11.5-14.0)
--- NOTE | 2020-03-13 12:11 | RADIOLOGY REPORT (SQ) ---
EXAM DESCRIPTION: CT HEAD WITHOUT IMAGES COMPLETED DATE/TIME: 03/13/2020 12:01 pm REASON FOR STUDY: Altered level of consciousness COMPARISON: 01/22/2020 TECHNIQUE: Axial images acquired through the brain without intravenous contrast. Images reviewed wi th bone, brain and subdural windows. Additional sagittal and coronal reconstructions were generated. Images stored on PACS. All CT scanners at this facility use dose modulation, iterative reconstruction, and/or weight based d osing when appropriate to reduce radiation dose to as low as reasonably achievable (ALARA). [facility]: Dose Right [facility]: CareDose [facility]: Dose Right [facility]: Teradose 4D [facility]: Next Safety RADIATION DOSE: CT Rad equipment meets quality standard of care and radiation dose reduction techniq ues were employed. CTDIvol: 53.2 mGy. DLP: 1017 mGy-cm. mGy. LIMITATIONS: None. FINDINGS: VENTRICLES: Normal size and contour. CEREBRUM: No masses. No hemorrhage. No midline shift. No evidence for acute infarction. Normal gra y/white matter differentiation. No areas of low density in the white matter. CEREBELLUM: No masses. No hemorrhage. No alteration of density. No evidence for acute infarction. EXTRAAXIAL SPACES: No fluid collections. No masses. ORBITS AND GLOBE: No intra- or extraconal masses. Normal contour of globe without masses. CALVARIUM: No fracture. PARANASAL SINUSES: No fluid or mucosal thickening. SOFT TISSUES: No mass or hematoma. OTHER: No other significant finding. IMPRESSION: NORMAL BRAIN CT WITHOUT CONTRAST. EVIDENCE OF ACUTE STROKE: NO. COMMENT: Quality ID # [id number]: Final reports with documentation of one or more dose reduction techniques (e.g., Automated exposure control, adjustment of the mA and/or kV according to patient size, use of iterative reconstruction technique) TECHNICAL DOCUMENTATION: JOB ID: [id number] 2010 [employer]- All Rights Reserved Reading location - IP/workstation name: [email or web address]
[2020-03-13 12:18] LABS: ALBUMIN 4.5 g/dL (3.5-5.0); ALKALINE PHOSPHATASE 142 U/L (38-126); BILIRUBIN,DIRECT 0.8 mg/dL (0.0-0.4); BILIRUBIN,TOTAL 1.6 mg/dL (0.2-1.3); BLOOD UREA NITROGEN 15 mg/dL (7-20); CALCIUM 9.9 mg/dL (8.4-10.2); GLUCOSE 169 mg/dL (75-110); POTASSIUM 3.8 mmol/L (3.6-5.0); TOTAL PROTEIN 8.3 g/dL (6.3-8.2)
[2020-03-13 12:21] LABS: ABSOLUTE LYMPHOCYTES# (MANUAL) 1.1 10^3/uL (0.5-4.7); ABSOLUTE MONOCYTES # (MANUAL) 1.1 10^3/uL (0.1-1.4); BASOPHILS % (MANUAL) 0 % (0-2); EOSINOPHILS % (MANUAL) 0 % (0-6); LYMPHOCYTES % (MANUAL) 6 % (13-45); MONOCYTES % (MANUAL) 6 % (3-13); SEGMENTED NEUTROPHILS % (MAN) 88 % (42-78); TOTAL CELLS COUNTED 100
[2020-03-13 12:22] LABS: ANISOCYTOSIS SLIGHT; CARBON DIOXIDE 12 mmol/L (22-30); CHLORIDE 97 mmol/L (98-107); PLATELET COMMENT ADEQUATE; TOXIC GRANULATION SLIGHT; TOXIC VACUOLATION PRESENT
[2020-03-13 12:24] LABS: ASPARTATE AMINO TRANSFERASE 655 U/L (17-59)
[2020-03-13 12:27] LABS: ACETAMINOPHEN < 10 ug/mL (10-30); ALCOHOL < 10 mg/dL (NONE DETECTED); ANION GAP 25 (5-19); SALICYLATE < 1.0 mg/dL (2.0-20.0)
[2020-03-13] MEDS ORDERED: LEVETIRACETAM 1000 MG/NACL-ISO 1,000 MG/100 ML RTUPB IV ONE (12:42)
[2020-03-13] MEDS ORDERED: LORAZEPAM INJ 2 MG/1 ML VIAL IV ONE (12:43)
--- NOTE | 2020-03-13 12:50 | ER Document Report ---
ED General - General Chief Complaint: Altered Mental Status Stated Complaint: ALTERED MENTAL STATUS Time Seen by Provider: 03/13/20 11:32 Primary Care Provider: AUREA SANTOYO MD [Primary Care Provider] - Follow up as needed TRAVEL OUTSIDE OF THE [place] IN LAST 30 DAYS: No - HPI Notes: Chief complaint: Multiple seizures, confusion, alcohol withdrawal History of present illness: Mr. Casarez is a 65-year-old male well-known to me from previous emergency department encounter. He was recently here for multiple seizures related to alcohol withdrawal and was subsequently admitted to the inpatient service by his primary care physician Dr. Santoyo. He had MRI of the brain during that hospitalization which was normal but because of his recurrent seizures he was sent out on both benzodiazepine and Keppra. He apparently is no ncompliant with the Keppra and has been continuing to drink intermittently. Patient family report that he is drinking beer daily. He says he has had "1 or 2 cans" earlier today. EMS was called to the house at least twice today for seizures and he refused transport. Family ultimately brought him here. He wanted to fight with EMS at that point they gave him IM Versed. Patient remains somewhat confused and argumentative and I am not able to get a lot of additional history from him. He is accompanied by his daughter who basically corroborates the information above. - Related Data Allergies/Adverse Reactions: No Known Allergies Allergy (Verified 01/22/20 09:54) Past Medical History - General Information source: Patient, [facility] Records Cannot obtain history due to: Intoxicated - Social History Smoking Status: Current Some Day Smoker Frequency of alcohol use: Heavy Drug Abuse: None Family History: Reviewed & Not Pertinent - Past Medical History Cardiac Medical History: Reports: Hx Hypercholesterolemia, Hx Hypertension Denies: Hx Heart Attack Pulmonary Medical History: Denies: Hx Asthma Neurological Medical History: Denies: Hx Cerebrovascular Accident, Hx Seizures Renal/ Medical History: Denies: Hx Peritoneal Dialysis GI Medical History: Denies: Hx Hepatitis, Hx Hiatal Hernia, Hx Ulcer Psychiatric Medical History: Denies: Hx Depression Infectious Medical History: Denies: Hx Hepatitis Past Surgical History: Denies: Hx Open Heart Surgery, Hx Pacemaker - Immunizations Hx Diphtheria, Pertussis, Tetanus Vaccination: Yes Review of Systems - Review of Systems -: Yes ROS unobtainable due to patient's medical condition Physical Exam - Vital signs Vitals: Resp Pulse Ox 15 98 03/13/20 11:35 03/13/20 11:35 - Notes Notes: GENERAL: Well-developed well-nourished male of approximately stated age who is mildly confused. SKIN: Mildly diaphoretic. Good turgor no rashes. HEAD: Normocephalic atraumatic. EYES: PERRLA. EOMI. Conjunctivae and sclerae clear. EARS: CANALS AND TMS CLEAR. NOSE: CLEAR. MOUTH: Moist mucosa. Good dentition. No stridor or edema. No drooling. NECK: Supple. No masses or thyromegaly. No adenopathy. Carotids 2+ without bruits. No JVD. BACK: Symmetrical without tenderness. CHEST: Respirations unlabored. Breath sounds clear and symmetrical. HEART: Tachycardic regular rhythm. No murmur gallop or rub. ABDOMEN: Soft nontender without masses, organomegaly or rebound. Bowel sounds normally active. No bruits. GENITALIA: Deferred. EXTREMITIES: No edema. No calf tenderness. Cap refill less than 1.5 seconds. Dorsalis pedis and posterior tibial pulses 3+ and symmetrical. NEUROLOGICAL: GCS 13. Opens eyes to verbal commands. Squeezes finger on command. Oriented to person but not to place or date. Moderate confabulation and states that he is "going to get out here as quick as I can". Slurred speech. Cranial nerves II through XII intact. Sensorimotor and cerebellar normal. 2+ tremor. 3+ bilateral ankle clonus PSYCHIATRIC: Belligerent affect. Course - Re-evaluation Re-evalutation: 03/13/20 13:00 CIWA-ar score 21. EtOH <10, WBC 19K. Markedly elevated transaminase values consistent with alcoholic hepatitis. Will ask PMD to admit for stabilization prior to transfer to detox. 03/13/20 13:15 Patient is receiving benzodiazepines for alcohol withdrawal. Case was discussed with his PMD, Dr. Santoyo who is agreed to admit to [facility]. - Vital Signs Vital signs: Temp Pulse Resp BP Pulse Ox 98 F 120 H 14 145/99 H 100 03/13/20 11:42 03/13/20 11:45 03/13/20 11:45 03/13/20 11:41 03/13/20 11:45 - Laboratory Result Diagrams: 03/13/20 11:35 03/13/20 11:35 Laboratory results interpreted by me: 03/13/20 03/13/20 11:35 11:35 WBC 19.0 H RDW 14.8 H Seg Neuts % (Manual) 88 H Lymphocytes % (Manual) 6 L Abs Neuts (Manual) 16.7 H Sodium 134.4 L Chloride 97 L Carbon Dioxide 12 L Anion Gap 25 H Creatinine 1.43 H Est GFR (MDRD) Non-Af 49 L Glucose 169 H Total Bilirubin 1.6 H Direct Bilirubin 0.8 H AST 655 H ALT 125 H Alkaline Phosphatase 142 H Total Protein 8.3 H Salicylates < 1.0 L Acetaminophen < 10 L - EKG Interpretation by Me Additional EKG results interpreted by me: 03/13/20 12:50 Twelve-lead EKG from 1130 hrs. reviewed contemporaneously by me showing sinus tachycardia with a rate of 126 and a QRS axis of -24 degrees. Intervals are normal. No acute ST/T wave changes. Indication for current study: Tachycardia. Discharge - Discharge Clinical Impression: Seizure Alcohol withdrawal syndrome Qualifiers: Complication of substance-induced condition: with delirium Qualified Code(s): F10.231 - Alcohol dependence with withdrawal delirium Alcoholic hepatitis Qualifiers: Ascites presence: without ascites Qualified Code(s): K70.10 - Alcoholic hepatitis without ascites Alcohol dependence Qualifiers: Substance use status: in withdrawal Complication of substance-induced condition: with unspecified complication Qualified Code(s): F10.239 - Alcohol dependence with withdrawal, unspecified Condition: Fair Disposition: ADMITTED INPATIENT Admitting Provider: Zana Unit Admitted: IMCU Referrals: AUREA SANTOYO MD [Primary Care Provider] - Follow up as needed
[2020-03-13] MEDS ORDERED: ONDANSETRON HCL INJ/PF 4 MG/2 ML SDV IV PRN (13:08)
[2020-03-13] MEDS ORDERED: IPRATROPIUM/ALBUTEROL 0.5-2.5 MG/3 ML AMPUL NEB PRN (13:08)
[2020-03-13] MEDS ORDERED: CEFTRIAXONE INJ 1000 MG VIAL IV ONE (13:11)
--- NOTE | 2020-03-13 13:35 | RADIOLOGY REPORT (SQ) ---
EXAM DESCRIPTION: CHEST SINGLE VIEW IMAGES COMPLETED DATE/TIME: 03/13/2020 1:22 pm REASON FOR STUDY: seizure COMPARISON: 01/23/2020 EXAM PARAMETERS: NUMBER OF VIEWS: One view. TECHNIQUE: Single frontal radiographic view of the chest acquired. RADIATION DOSE: NA LIMITATIONS: None. FINDINGS: LUNGS AND PLEURA: No opacities, masses or pneumothorax. No pleural effusion. MEDIASTINUM AND HILAR STRUCTURES: No masses. Contour normal. HEART AND VASCULAR STRUCTURES: Heart normal in size. Normal vasculature. BONES: No acute findings. HARDWARE: None in the chest. OTHER: No other significant finding. IMPRESSION: NO ACUTE RADIOGRAPHIC FINDING IN THE CHEST. TECHNICAL DOCUMENTATION: JOB ID: [id number] 2010 [employer]- All Rights Reserved Reading location - IP/workstation name: [email or web address]
--- NOTE | 2020-03-13 14:04 | RADIOLOGY REPORT (SQ) ---
EXAM DESCRIPTION: CT ABD/PELVIS WITH IV ONLY IMAGES COMPLETED DATE/TIME: 03/13/2020 1:33 pm REASON FOR STUDY: abdominal pain COMPARISON: None. TECHNIQUE: CT scan of the abdomen and pelvis performed using helical scanning technique with dynamic intravenous contrast injection. No oral contrast. Images reviewed with lung, soft tissue, and bone windows. Reconstructed coronal and sagittal MPR images reviewed. Delayed images for evaluation of the urinary system also acquired. All images stored on PACS. All CT scanners at this facility use dose modulation, iterative reconstruction, and/or weight based d osing when appropriate to reduce radiation dose to as low as reasonably achievable (ALARA). [facility]: Dose Right [facility]: CareDose [facility]: Dose Right [facility]: Teradose 4D [facility]: Quora CONTRAST TYPE AND DOSE: contrast/concentration: Isovue 350.00 mmol/ml; Total Contrast Delivered: 80. 0 ml; Total Saline Delivered: 55.0 ml RENAL FUNCTION: BUN 15, creatinine 1.43 RADIATION DOSE: CT Rad equipment meets quality standard of care and radiation dose reduction techniq ues were employed. CTDIvol: 6.9 - 9.7 mGy. DLP: 886 mGy-cm.. LIMITATIONS: None. FINDINGS: LOWER CHEST: No significant findings. No nodules or infiltrates. LIVER: There is decreased attenuation throughout the liver consistent with hepatic steatosis. SPLEEN: Normal size. No focal lesions. PANCREAS: No masses. No significant calcifications. No adjacent inflammation or peripancreatic fluid collections. Pancreatic duct not dilated. GALLBLADDER: No identified stones by CT criteria. No inflammatory changes to suggest cholecystitis. ADRENAL GLANDS: No significant masses or asymmetry. RIGHT KIDNEY AND URETER: No solid masses. No significant calcifications. Prominent extrarenal pel vis on the right. There is dilatation of the distal right ureter. There appears to be a ureterocele on delayed imaging. No obvious duplication. LEFT KIDNEY AND URETER: No solid masses. No significant calcifications. No hydronephrosis. There is dilatation of the distal ureter and ureterocele as well. No obvious duplication. AORTA AND VESSELS: No aneurysm. No dissection. Renal arteries, SMA, celiac without stenosis. RETROPERITONEUM: No retroperitoneal adenopathy, hemorrhage or masses. BOWEL AND PERITONEAL CAVITY: No masses or inflammatory changes. No free fluid or peritoneal masses. APPENDIX: Normal. PELVIS: No mass. No free fluid. Normal bladder. ABDOMINAL WALL: No masses. No hernias. BONES: No significant or acute findings. OTHER: No other significant finding. 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 No hydronephrosis or stones. No perinephric strandin g. TECHNICAL DOCUMENTATION: JOB ID: [id number] Quality ID # [id number]: Final reports with documentation of one or more dose reduction techniques (e.g., Au tomated exposure control, adjustment of the mA and/or kV according to patient size, use of iterative reconstruction technique) 2010 [employer]- All Rights Reserved Reading location - IP/workstation name: [email or web address]
[2020-03-13 14:36] LABS: APPEARANCE,URINE SLIGHTLY-CLOUDY; BILIRUBIN,URINE NEGATIVE (NEGATIVE); COLOR,URINE YELLOW; GLUCOSE, URINE NEGATIVE (NEGATIVE); KETONES,URINE TRACE mg/dL (NEGATIVE); LEUKOCYTE ESTERASE,URINE NEGATIVE (NEGATIVE); NITRITE,URINE NEGATIVE (NEGATIVE); PROTEIN,URINE 30 mg/dL (NEGATIVE); URINE SPECIFIC GRAVITY 1.025
[2020-03-13 14:51] LABS: URINE AMPHETAMINES SCREEN NEGATIVE; URINE BARBITURATES SCREEN NEGATIVE; URINE COCAINE SCREEN NEGATIVE; URINE MARIJUANA (THC) SCREEN NEGATIVE; URINE METHADONE SCREEN NEGATIVE; URINE PHENCYCLIDINE SCREEN NEGATIVE
[2020-03-13 14:53] LABS: URINE BENZODIAZEPINES SCREEN UNCONFIRMED POSITIVE
--- NOTE | 2020-03-13 15:12 | EKG REPORT ---
SEVERITY:- BORDERLINE ECG - SINUS TACHYCARDIA BORDERLINE LEFT AXIS DEVIATION NONSPECIFIC ST-T CHANGES- INFERIOR LEADS : Confirmed by: Kin Guerrero MD 13-Mar-2020 15:11:20
--- NOTE | 2020-03-13 15:48 | PDOC H&P ---
History of Present Illness Admission Date/PCP: AUREA SANTOYO MD Patient complains of: Altered mental status and seizures History of Present Illness: LIBRA ALTAMIRANO is a 65 year old male This 65-year-old male with a significant history of the alcoholism's and alc ohol-related seizures activity and very noncompliance recently admitting in the hospital for the same problems and patient was referred to the neurology and GI Patient's supposed to Go to see the psych but did not go and the patient's also went to the neurology but I do not think so patients follow after thatBecause of her noncompliance and continues to drink the alcohol noticed some seizures acti vity this morning called EMS twice and patients get more confused finally patient was brought to the ER given IM Versed in emergency department patient is alert awake but confused initial CT of the head was negative Patient's white count was elevated and other blood work is all stable except the patient have a elevated LFT which most likely acute hepatitis due to the alcohol-related Patient usually drinks beer according to the daughter he try to cut down he used to drink 6-7 beer per day Discussed with the daughter with this patient however this ongoing problem with alcohol withdrawal and alcoholism with acute hepatitis and a chronic liver disease not a very good prognosis Patient having no seizures activity while in the hospital We decided to admit the patient in the hospital in IMCU start on high-dose IV thiamine 500 mg twice a day for 3 days also start on alcohol withdrawal protocol We will get the IV antibiotic for possible aspirations get a chest x-ray get a blood culture urine culture continues to monitor the patient Past Medical History Cardiac Medical History: Reports: Hyperlipidema, Hypertension Denies: Myocardial Infarction Pulmonary Medical History: Denies: Asthma Neurological Medical History: Denies: Seizures GI Medical History: Denies: Hepatitis, Hiatal Hernia Psychiatric Medical History: Reports: Alcohol Dependency, Depression Hematology: Reports: Anemia Denies: Sickle Cell Disease Past Surgical History Past Surgical History: Denies: Pacemaker Social History Information Source: Relative Smoking Status: Current Some Day Smoker Frequency of Alcohol Use: Heavy Hx Recreational Drug Use: No Hx Prescription Drug Abuse: No Family History Family History: Reviewed & Not Pertinent Parental Family History Reviewed: Yes Children Family History Reviewed: Yes Sibling(s) Family History Reviewed.: Yes Medication/Allergy Home Medications: Dorzolamide HCl/Timolol Maleat [Cosopt Eye Drops] 1 drop OU BID 12/23/19 Latanoprost [Xalatan 0.005% Oph Soln 2.5 ml] 1 drop OU QAM 12/23/19 Levothyroxine Sodium 100 mcg PO Q6AM 12/23/19 Multivitamin [Multiple Vitamins] 1 tab PO DAILY 12/23/19 Folic Acid [Folvite 1 mg Tablet] 1 mg PO DAILY #30 tablet 12/24/19 Thiamine HCl [Thiamine 100 mg Tablet] 100 mg PO DAILY #30 tablet 12/24/19 Lorazepam [Ativan 0.5 mg Tablet] 0.25 mg PO Q12 #12 tablet 01/27/20 Pantoprazole Sodium [Protonix [address] Tablet] 40 mg PO Q6AM #90 tablet.dr 01/27/20 Thiamine HCl [Thiamine 100 mg Tablet] 100 mg PO DAILY #90 tablet 01/27/20 Allergies/Adverse Reactions: No Known Allergies Allergy (Verified 01/22/20 09:54) Review of Systems ROS unobtainable: Due to mental status All systems: reviewed and no additional remarkable complaints except as stated Physical Exam Vital Signs: Temp Pulse Resp BP Pulse Ox 98 F 120 H 14 145/99 H 97 03/13/20 11:42 03/13/20 11:45 03/13/20 13:00 03/13/20 11:41 03/13/20 12:00 Intake & Output 03/12/20 03/13/20 03/14/20 06:59 06:59 06:59 Intake Total 100 Balance 100 Weight 70 kg General appearance: PRESENT: no acute distress Head exam: PRESENT: atraumatic, normocephalic Eye exam: PRESENT: conjunctiva pink, EOMI, PERRLA. ABSENT: scleral icterus Ear exam: PRESENT: normal external ear exam Mouth exam: PRESENT: moist, tongue midline Neck exam: PRESENT: full ROM. ABSENT: carotid bruit, JVD, lymphadenopathy, thyromegaly Respiratory exam: PRESENT: clear to auscultation edwin Cardiovascular exam: PRESENT: RRR. ABSENT: diastolic murmur, rubs, systolic murmur Pulses: PRESENT: normal dorsalis pedis pul, +2 pedal pulses bilateral Vascular exam: PRESENT: normal capillary refill GI/Abdominal exam: PRESENT: normal bowel sounds, soft. ABSENT: distended, guarding, mass, organolmegaly, rebound, tenderness Rectal exam: PRESENT: deferred Neurological exam: PRESENT: alert, altered, awake. ABSENT: motor sensory deficit Psychiatric exam: PRESENT: agitated. ABSENT: homicidal ideation, suicidal ideation Skin exam: PRESENT: dry, intact, warm. ABSENT: cyanosis, rash Results Laboratory Results: 03/13/20 11:35 03/13/20 11:35 03/13/20 03/13/20 11:35 11:35 WBC 19.0 H RBC 4.77 Hgb 15.4 Hct 45.6 MCV 96 MCH 32.2 MCHC 33.7 RDW 14.8 H Plt Count 228 Seg Neutrophils % Not Reportable Sodium 134.4 L Potassium 3.8 Chloride 97 L Carbon Dioxide 12 L Anion Gap 25 H BUN 15 Creatinine 1.43 H Est GFR ( Amer) > 60 Glucose 169 H Calcium 9.9 Total Bilirubin 1.6 H AST 655 H Alkaline Phosphatase 142 H Total Protein 8.3 H Albumin 4.5 Impressions: Head CT 03/13/20 11:41 IMPRESSION: NORMAL BRAIN CT WITHOUT CONTRAST. EVIDENCE OF ACUTE STROKE: NO. Assessment & Plan - Diagnosis (1) Alcohol withdrawal syndrome Qualifiers: Complication of substance-induced condition: with delirium Qualified Code(s): F10.231 - Alcohol dependence with withdrawal delirium Is this a current diagnosis for this admission?: Yes Plan: Start the patient on alcohol withdrawal protocol aspirations precautions (2) Alcoholic hepatitis Qualifiers: Ascites presence: without ascites Qualified Code(s): K70.10 - Alcoholic hepatitis without ascites Is this a current diagnosis for this admission?: Yes Plan: Patient of ultrasound done her last visit was all stable we will get the CT abdomen and pelvis and the hepatitis panel (3) Seizure Is this a current diagnosis for this admission?: Yes Plan: We will start the patient on a thiamine also cover with the Keppra while patient was this recurrent seizures (4) Altered mental status Qualifiers: Coma depth: [place] coma 13-15 Is this a current diagnosis for this admission?: Yes Plan: Most likely due to the above conditions will get the all the blood culture urine culture to rule out any sepsis continues to monitor (5) Encephalopathy Is this a current diagnosis for this admission?: Yes Plan: Most likely due to the alcohol withdrawal and alcoholism's we will check the ammonia level continues to monitor we will start the patient on a thiamine (6) Tachycardia Is this a current diagnosis for this admission?: Yes Plan: Continues IV fluid continues to monitor (7) Leukocytosis Qualifiers: Leukocytosis type: unspecified Qualified Code(s): D72.829 - Elevated white blood cell count, unspecified Is this a current diagnosis for this admission?: Yes Plan: Could be a aspirations will continues to monitor Will get the IV antibiotics get all cultures continues to monitor - Time Time Spent: 50 to 70 Minutes Medications reviewed and adjusted accordingly: Yes Anticipated Discharge Disposition: Longterm Facility Anticipated Discharge Timeframe: within 72 hours - Inpatient Certification Based on my medical assessment, after consideration of the patient's comorbidities, presenting symptoms, or acuity I expect that the services needed warrant INPATIENT care.: Yes I certify that my determination is in accordance with my understanding of Medicare's requirements for reasonable and necessary INPATIENT services [42 CFR 412.3e].: Yes Medical Necessity: Significant Comorbidiites Make Outpatient Treatment Too Risky, Need Close Monitoring Due to Risk of Patient Decompensation, Need For IV Fluids, Need for IV Antibiotics Post Hospital Care: D/C Dairy Farmer Documentation - Plan Summary Plan Summary: Admit the patient in IMCU Discussed with the daughter regarding the patient's current conditions
[2020-03-13] MEDS ORDERED: NORMAL SALINE 1000 ML 1,000 ML IV PRN (16:00)
[2020-03-13] MEDS: LORAZEPAM INJ 2 MG/1 ML VIAL IV SCH (17:30)
[2020-03-13] MEDS: NORMAL SALINE 1000 ML 1,000 ML IV PRN ×2 (17:32→21:52)
[2020-03-13] MEDS: [UNRECOGNIZED DRUG - REMARK] IV SCH ×3 (17:44)
[2020-03-13] MEDS: PANTOPRAZOLE SODIUM 40 MG VIAL IV SCH (21:48)
[2020-03-13] MEDS: CEFEPIME 1 GM/D5W RTU 1 GM/50 ML RTUPB IV SCH (21:49)
[2020-03-13] MEDS: LEVETIRACETAM 500 MG/NACL-ISO 500 MG/100 ML RTUPB IV SCH (21:50)
[2020-03-13] MEDS ORDERED: THIAMINE HCL 500 MG in NORMAL SALINE 250 ML IV SCH (22:00)
[2020-03-13] MEDS ORDERED: THIAMINE HCL 500 MG in NORMAL SALINE 250 ML IV ONE (23:15)
[2020-03-14] MEDS: LORAZEPAM INJ 2 MG/1 ML VIAL IV SCH ×2 (00:11→09:43)
[2020-03-14] MEDS: NORMAL SALINE 1000 ML 1,000 ML IV PRN (04:30)
[2020-03-14 04:55] LABS: ABSOLUTE EOSINOPHILS # (AUTO) 0.1 10^3/uL (0.0-0.6); ABSOLUTE LYMPHOCYTES (AUTO) 1.4 10^3/uL (0.5-4.7); ABSOLUTE MONOCYTES (AUTO) 0.6 10^3/uL (0.1-1.4); ABSOLUTE NEUT (AUTO) 4.4 10^3/uL (1.7-8.2); BASOPHILS % (AUTO) 0.6 % (0-2); EOSINOPHILS % (AUTO) 0.8 % (0-6); HEMATOCRIT 37.8 % (37.9-51.0); LYMPHOCYTES % (AUTO) 21.5 % (13-45); MEAN CORPUSCULAR HEMOGLOBIN 32.5 pg (27.0-33.4); MEAN CORPUSCULAR HGB CONC 34.9 g/dL (32.0-36.0); MEAN CORPUSCULAR VOLUME 93 fl (80-97); MONOCYTES % (AUTO) 9.7 % (3-13); PLATELET COUNT 120 10^3/uL (150-450); RED BLOOD COUNT 4.06 10^6/uL (4.35-5.55); RED CELL DISTRIBUTION WIDTH 14.6 % (11.5-14.0); SEGMENTED NEUTROPHILS % (AUTO) 67.4 % (42-78); TOTAL CELLS COUNTED % (AUTO) 100 %; WHITE BLOOD COUNT 6.6 10^3/uL (4.0-10.5)
[2020-03-14 05:11] LABS: ALBUMIN 3.1 g/dL (3.5-5.0); ALKALINE PHOSPHATASE 93 U/L (38-126); ANION GAP 9 (5-19); ASPARTATE AMINO TRANSFERASE 317 U/L (17-59); BILIRUBIN,DIRECT 0.1 mg/dL (0.0-0.4); BILIRUBIN,TOTAL 2.2 mg/dL (0.2-1.3); BLOOD UREA NITROGEN 6 mg/dL (7-20); CALCIUM 8.2 mg/dL (8.4-10.2); CHLORIDE 101 mmol/L (98-107); GLUCOSE 98 mg/dL (75-110); TOTAL PROTEIN 6.5 g/dL (6.3-8.2)
[2020-03-14 05:15] LABS: HEMOGLOBIN 13.2 g/dL (13.5-17.0)
[2020-03-14 05:23] LABS: CARBON DIOXIDE 25 mmol/L (22-30)
[2020-03-14 05:24] LABS: POTASSIUM 2.9 mmol/L (3.6-5.0)
[2020-03-14] MEDS ORDERED: THIAMINE HCL 500 MG in NORMAL SALINE 250 ML IV SCH ×2 (06:00→10:00)
[2020-03-14] MEDS ORDERED: POTASSIUM CHLORIDE 10 MEQ TABLET.ER PO ONE ×2 (07:00→14:00)
[2020-03-14 08:38] LABS: HEPATITS B SURFACE ANTIGEN Negative (Negative)
[2020-03-14] MEDS: CEFEPIME 1 GM/D5W RTU 1 GM/50 ML RTUPB IV SCH ×2 (09:24→22:12)
[2020-03-14] MEDS: PANTOPRAZOLE SODIUM 40 MG VIAL IV SCH ×2 (09:25→22:11)
[2020-03-14] MEDS: LEVETIRACETAM 500 MG/NACL-ISO 500 MG/100 ML RTUPB IV SCH ×2 (11:40→22:10)
--- NOTE | 2020-03-14 12:12 | PDOC PROGRESS REPORT ---
Subjective Progress Note for:: 03/14/20 Subjective:: Alert awake oriented but still confused Patient's denied any chest pain no short of breath Very extensive discussions with the daughter regarding the patient's current conditions with the alcohol-related behavior Reason For Visit: ALCOHOL WITHDRAWAL, ACUTE HEPATITIS,ELEVATED WHITE Physical Exam Vital Signs: Temp Pulse Resp BP Pulse Ox 97.5 F 90 16 140/73 H 100 03/14/20 07:34 03/14/20 07:34 03/14/20 07:34 03/14/20 07:34 03/14/20 07:34 Intake & Output 03/13/20 03/14/20 03/15/20 06:59 06:59 06:59 Intake Total 3774 305 Balance 3774 305 Weight 78.1 kg General appearance: PRESENT: no acute distress, well-developed, well-nourished Head exam: PRESENT: atraumatic, normocephalic Eye exam: PRESENT: conjunctiva pink, EOMI, PERRLA. ABSENT: scleral icterus Ear exam: PRESENT: normal external ear exam Mouth exam: PRESENT: moist, tongue midline Neck exam: PRESENT: full ROM. ABSENT: carotid bruit, JVD, lymphadenopathy, thyromegaly Respiratory exam: PRESENT: clear to auscultation edwin Cardiovascular exam: PRESENT: RRR. ABSENT: diastolic murmur, rubs, systolic murmur Vascular exam: PRESENT: normal capillary refill GI/Abdominal exam: PRESENT: normal bowel sounds, soft. ABSENT: distended, guarding, mass, organolmegaly, rebound, tenderness Rectal exam: PRESENT: deferred Neurological exam: PRESENT: alert, awake, oriented to person. ABSENT: motor sensory deficit Psychiatric exam: PRESENT: appropriate affect, normal mood. ABSENT: homicidal ideation, suicidal ideation Skin exam: PRESENT: dry, intact, warm. ABSENT: cyanosis, rash Results Laboratory Results: 03/14/20 04:40 03/14/20 04:40 03/13/20 03/13/20 03/14/20 11:35 14:10 04:40 WBC 6.6 RBC 4.06 L Hgb 13.2 L D Hct 37.8 L MCV 93 MCH 32.5 MCHC 34.9 RDW 14.6 H Plt Count 120 L Seg Neutrophils % 67.4 Sodium 134.4 L Potassium 3.8 Chloride 97 L Carbon Dioxide 12 L Anion Gap 25 H BUN 15 Creatinine 1.43 H Est GFR ( Amer) > 60 Glucose 169 H Calcium 9.9 Magnesium Total Bilirubin 1.6 H AST 655 H Alkaline Phosphatase 142 H Ammonia Total Protein 8.3 H Albumin 4.5 Lipase Urine Color YELLOW Urine Appearance SLIGHTLY-CLOUDY Urine pH 5.0 Ur Specific [place] 1.025 Urine Protein 30 H Urine Glucose (UA) NEGATIVE Urine Ketones TRACE H Urine Blood NEGATIVE Urine Nitrite NEGATIVE Ur Leukocyte Esterase NEGATIVE Urine WBC (Auto) 3 Urine RBC (Auto) 1 03/14/20 03/14/20 04:40 04:40 WBC RBC Hgb Hct MCV MCH MCHC RDW Plt Count Seg Neutrophils % Sodium 134.8 L Potassium 2.9 L* Chloride 101 Carbon Dioxide 25 D Anion Gap 9 BUN 6 L Creatinine 0.92 Est GFR ( Amer) > 60 Glucose 98 Calcium 8.2 L Magnesium 1.9 Total Bilirubin 2.2 H AST 317 H Alkaline Phosphatase 93 Ammonia < 8.7 L Total Protein 6.5 Albumin 3.1 L Lipase 171.2 Urine Color Urine Appearance Urine pH Ur Specific Sultan Urine Protein Urine Glucose (UA) Urine Ketones Urine Blood Urine Nitrite Ur Leukocyte Esterase Urine WBC (Auto) Urine RBC (Auto) 03/13/20 14:04 Blood Blood Culture (PCR) - Final Staphylococcus Species Impressions: Head CT 03/13/20 11:41 IMPRESSION: NORMAL BRAIN CT WITHOUT CONTRAST. EVIDENCE OF ACUTE STROKE: NO. Chest X-Ray 03/13/20 12:41 IMPRESSION: NO ACUTE RADIOGRAPHIC FINDING IN THE CHEST. 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 No hydronephrosis or stones. No perinephric stranding. Assessment & Plan - Diagnosis (1) Alcohol withdrawal syndrome Qualifiers: Complication of substance-induced condition: with delirium Qualified Code(s): F10.231 - Alcohol dependence with withdrawal delirium Is this a current diagnosis for this admission?: Yes Plan: Nursing staff noticed that patient is sometimes more confused with the IV lorazepam will change to the p.o. lorazepam low-dose (2) Alcoholic hepatitis Qualifiers: Ascites presence: without ascites Qualified Code(s): K70.10 - Alcoholic hepatitis without ascites Is this a current diagnosis for this admission?: Yes Plan: Continues the IV fluid (3) Seizure Is this a current diagnosis for this admission?: Yes Plan: Patient with no seizures activity while in the hospital continues to Keppra and as needed lorazepam (4) Altered mental status Qualifiers: Coma depth: [place] coma 13-15 Is this a current diagnosis for this admission?: Yes (5) Encephalopathy Is this a current diagnosis for this admission?: Yes (6) Tachycardia Is this a current diagnosis for this admission?: Yes (7) Leukocytosis Qualifiers: Leukocytosis type: unspecified Qualified Code(s): D72.829 - Elevated white blood cell count, unspecified Is this a current diagnosis for this admission?: Yes - Time Time Spent with patient: 15-24 minutes Level of Care: IMCU Medications reviewed and adjusted accordingly: Yes Anticipated discharge: Other Anticipated DC Timeframe: Other - Plan Summary Plan Summary: Discussed with the daughter regarding the patient's current conditions Patient have a significant behavioral issue with alcohol I think patients probably need a detox Will consult the psych Continues the p.o. lorazepam Continues to monitor
[2020-03-14] MEDS: THIAMINE HCL 500 MG in NORMAL SALINE 250 ML IV SCH ×2 (13:12→22:11)
[2020-03-14] MEDS: LORAZEPAM 0.5 MG TABLET PO SCH (13:12)
[2020-03-14] MEDS ORDERED: LORAZEPAM INJ 2 MG/1 ML VIAL IV SCH (14:01)
[2020-03-14] MEDS: POTASSI CL 40 MEQ/NS 1L 1,000 ML IV PRN (15:34)
[2020-03-14] MEDS: [UNRECOGNIZED DRUG - REMARK] IV SCH ×3 (17:12)
[2020-03-14 18:31] LABS: HEPATITIS C VIRUS ANTIBODY <0.1 s/co ratio (0.0-0.9)
[2020-03-14] MEDS: LORAZEPAM INJ 2 MG/1 ML VIAL IV PRN (22:14)
[2020-03-15] MEDS: LORAZEPAM 0.5 MG TABLET PO SCH ×4 (00:04→22:31)
[2020-03-15 05:24] LABS: ABSOLUTE LYMPHOCYTES (AUTO) 1.4 10^3/uL (0.5-4.7); ABSOLUTE MONOCYTES (AUTO) 0.6 10^3/uL (0.1-1.4); ABSOLUTE NEUT (AUTO) 5.4 10^3/uL (1.7-8.2); BASOPHILS % (AUTO) 0.7 % (0-2); EOSINOPHILS % (AUTO) 0.5 % (0-6); HEMATOCRIT 40.4 % (37.9-51.0); HEMOGLOBIN 14.1 g/dL (13.5-17.0); LYMPHOCYTES % (AUTO) 18.9 % (13-45); MEAN CORPUSCULAR HEMOGLOBIN 32.7 pg (27.0-33.4); MEAN CORPUSCULAR HGB CONC 34.9 g/dL (32.0-36.0); MEAN CORPUSCULAR VOLUME 94 fl (80-97); MONOCYTES % (AUTO) 8.3 % (3-13); PLATELET COUNT 111 10^3/uL (150-450); RED BLOOD COUNT 4.31 10^6/uL (4.35-5.55); RED CELL DISTRIBUTION WIDTH 14.4 % (11.5-14.0); SEGMENTED NEUTROPHILS % (AUTO) 71.6 % (42-78); TOTAL CELLS COUNTED % (AUTO) 100 %; WHITE BLOOD COUNT 7.5 10^3/uL (4.0-10.5)
[2020-03-15] MEDS: THIAMINE HCL 500 MG in NORMAL SALINE 250 ML IV SCH ×3 (05:55→22:31)
[2020-03-15 10:23] LABS: ABSOLUTE LYMPHOCYTES (AUTO) 1.8 10^3/uL (0.5-4.7); ABSOLUTE MONOCYTES (AUTO) 0.9 10^3/uL (0.1-1.4); BASOPHILS % (AUTO) 0.4 % (0-2); EOSINOPHILS % (AUTO) 0.4 % (0-6); HEMATOCRIT 38.6 % (37.9-51.0); HEMOGLOBIN 13.3 g/dL (13.5-17.0); LYMPHOCYTES % (AUTO) 18.7 % (13-45); MEAN CORPUSCULAR HEMOGLOBIN 32.4 pg (27.0-33.4); MEAN CORPUSCULAR HGB CONC 34.5 g/dL (32.0-36.0); MEAN CORPUSCULAR VOLUME 94 fl (80-97); PLATELET COUNT 104 10^3/uL (150-450); RED BLOOD COUNT 4.11 10^6/uL (4.35-5.55); RED CELL DISTRIBUTION WIDTH 14.4 % (11.5-14.0); SEGMENTED NEUTROPHILS % (AUTO) 71.5 % (42-78); TOTAL CELLS COUNTED % (AUTO) 100 %; WHITE BLOOD COUNT 9.8 10^3/uL (4.0-10.5)
[2020-03-15 10:44] LABS: ANION GAP 8 (5-19); CALCIUM 8.7 mg/dL (8.4-10.2); CARBON DIOXIDE 27 mmol/L (22-30); CHLORIDE 102 mmol/L (98-107); GLUCOSE 111 mg/dL (75-110); POTASSIUM 3.6 mmol/L (3.6-5.0)
[2020-03-15 10:46] LABS: BLOOD UREA NITROGEN < 2 mg/dL (7-20)
--- NOTE | 2020-03-15 11:05 | PDOC PROGRESS REPORT ---
Subjective Progress Note for:: 03/15/20 Subjective:: Patient with no seizures activity since in the hospital Denied any chest pain no short of breath Patient still agitated We will increase the lorazepam 1 mg p.o. every 8 because IV medications makes the patient is more worse nursing staff Reason For Visit: ALCOHOL WITHDRAWAL, ACUTE HEPATITIS,ELEVATED WHITE Physical Exam Vital Signs: Temp Pulse Resp BP Pulse Ox 98.5 F 103 H 12 117/89 H 100 03/15/20 08:40 03/15/20 08:40 03/15/20 08:40 03/15/20 08:40 03/15/20 08:40 Intake & Output 03/14/20 03/15/20 03/16/20 06:59 06:59 06:59 Intake Total 3774 3876 Output Total 60 Balance 3774 3816 Weight 78.1 kg 75.7 kg General appearance: PRESENT: no acute distress, well-developed, well-nourished Head exam: PRESENT: atraumatic, normocephalic Eye exam: PRESENT: conjunctiva pink, EOMI, PERRLA. ABSENT: scleral icterus Ear exam: PRESENT: normal external ear exam Mouth exam: PRESENT: moist, tongue midline Neck exam: PRESENT: full ROM. ABSENT: carotid bruit, JVD, lymphadenopathy, thyromegaly Respiratory exam: PRESENT: clear to auscultation edwin Cardiovascular exam: PRESENT: RRR. ABSENT: diastolic murmur, rubs, systolic murmur Vascular exam: PRESENT: normal capillary refill GI/Abdominal exam: PRESENT: normal bowel sounds, soft. ABSENT: distended, guarding, mass, organolmegaly, rebound, tenderness Rectal exam: PRESENT: deferred Neurological exam: PRESENT: alert, awake, oriented to person. ABSENT: motor sensory deficit Psychiatric exam: PRESENT: appropriate affect, normal mood. ABSENT: homicidal ideation, suicidal ideation Skin exam: PRESENT: dry, intact, warm. ABSENT: cyanosis, rash Results Laboratory Results: 03/15/20 10:10 03/15/20 10:10 03/15/20 03/15/20 03/15/20 05:12 05:12 05:12 WBC 7.5 RBC 4.31 L Hgb 14.1 Hct 40.4 MCV 94 MCH 32.7 MCHC 34.9 RDW 14.4 H Plt Count 111 L Seg Neutrophils % 71.6 Sodium Potassium Chloride Carbon Dioxide Anion Gap BUN Creatinine Est GFR ( Amer) Glucose Calcium Magnesium 1.5 L Ammonia < 8.7 L Lipase 237.9 03/15/20 03/15/20 10:10 10:10 WBC 9.8 RBC 4.11 L Hgb 13.3 L Hct 38.6 MCV 94 MCH 32.4 MCHC 34.5 RDW 14.4 H Plt Count 104 L Seg Neutrophils % 71.5 Sodium 136.5 L Potassium 3.6 Chloride 102 Carbon Dioxide 27 Anion Gap 8 BUN < 2 L Creatinine 0.71 Est GFR ( Amer) > 60 Glucose 111 H Calcium 8.7 Magnesium 1.4 L Ammonia Lipase 03/13/20 14:04 Blood Blood Culture (PCR) - Final Staphylococcus Species Impressions: Head CT 03/13/20 11:41 IMPRESSION: NORMAL BRAIN CT WITHOUT CONTRAST. EVIDENCE OF ACUTE STROKE: NO. Chest X-Ray 03/13/20 12:41 IMPRESSION: NO ACUTE RADIOGRAPHIC FINDING IN THE CHEST. 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 No hydronephrosis or stones. No perinephric stranding. Assessment & Plan - Diagnosis (1) Alcohol withdrawal syndrome Qualifiers: Complication of substance-induced condition: with delirium Qualified Code(s): F10.231 - Alcohol dependence with withdrawal delirium Is this a current diagnosis for this admission?: Yes Plan: Nursing staff noticed that patient is sometimes more confused with the IV lorazepam will change to the p.o. lorazepam low-dose (2) Alcoholic hepatitis Qualifiers: Ascites presence: without ascites Qualified Code(s): K70.10 - Alcoholic hepatitis without ascites Is this a current diagnosis for this admission?: Yes Plan: Continues the IV fluid (3) Seizure Is this a current diagnosis for this admission?: Yes Plan: Patient with no seizures activity while in the hospital continues to Keppra and as needed lorazepam (4) Altered mental status Qualifiers: Coma depth: [place] coma 13-15 Is this a current diagnosis for this admission?: Yes (5) Encephalopathy Is this a current diagnosis for this admission?: Yes (6) Tachycardia Is this a current diagnosis for this admission?: Yes (7) Leukocytosis Qualifiers: Leukocytosis type: unspecified Qualified Code(s): D72.829 - Elevated white blood cell count, unspecified Is this a current diagnosis for this admission?: Yes - Time Time Spent with patient: 15-24 minutes Level of Care: IMCU Medications reviewed and adjusted accordingly: Yes Anticipated discharge: Other Anticipated DC Timeframe: Other - Plan Summary Plan Summary: Continues to current medications
[2020-03-15] MEDS ORDERED: MAGNESIUM SULFATE/D5W 1 GM/100 ML RTUPB IV ONE ×2 (12:00→14:30)
[2020-03-15] MEDS: PANTOPRAZOLE SODIUM 40 MG VIAL IV SCH ×2 (12:38→22:32)
[2020-03-15] MEDS: LEVETIRACETAM 500 MG/NACL-ISO 500 MG/100 ML RTUPB IV SCH ×2 (12:38→22:33)
[2020-03-15] MEDS: CEFEPIME 1 GM/D5W RTU 1 GM/50 ML RTUPB IV SCH ×2 (14:10→22:32)
[2020-03-15] MEDS ORDERED: LORAZEPAM INJ 2 MG/1 ML VIAL IV SCH (16:01)
[2020-03-15] MEDS: [UNRECOGNIZED DRUG - REMARK] IV SCH ×3 (17:17)
[2020-03-15] MEDS: POTASSI CL 40 MEQ/NS 1L 1,000 ML IV PRN (22:28)
[2020-03-16] MEDS: LORAZEPAM 0.5 MG TABLET PO SCH ×3 (05:46→21:34)
[2020-03-16] MEDS: THIAMINE HCL 500 MG in NORMAL SALINE 250 ML IV SCH (05:47)
[2020-03-16 07:19] LABS: ABSOLUTE EOSINOPHILS # (AUTO) 0.1 10^3/uL (0.0-0.6); ABSOLUTE LYMPHOCYTES (AUTO) 1.2 10^3/uL (0.5-4.7); ABSOLUTE MONOCYTES (AUTO) 0.7 10^3/uL (0.1-1.4); BASOPHILS % (AUTO) 0.3 % (0-2); HEMATOCRIT 36.3 % (37.9-51.0); HEMOGLOBIN 12.7 g/dL (13.5-17.0); LYMPHOCYTES % (AUTO) 14.8 % (13-45); MEAN CORPUSCULAR HEMOGLOBIN 32.8 pg (27.0-33.4); MEAN CORPUSCULAR HGB CONC 34.9 g/dL (32.0-36.0); MEAN CORPUSCULAR VOLUME 94 fl (80-97); MONOCYTES % (AUTO) 8.4 % (3-13); PLATELET COUNT 100 10^3/uL (150-450); RED BLOOD COUNT 3.86 10^6/uL (4.35-5.55); RED CELL DISTRIBUTION WIDTH 14.4 % (11.5-14.0); SEGMENTED NEUTROPHILS % (AUTO) 75.5 % (42-78); TOTAL CELLS COUNTED % (AUTO) 100 %
[2020-03-16 07:39] LABS: ALBUMIN 3.2 g/dL (3.5-5.0); ALKALINE PHOSPHATASE 69 U/L (38-126); ANION GAP 8 (5-19); ASPARTATE AMINO TRANSFERASE 248 U/L (17-59); BILIRUBIN,TOTAL 1.3 mg/dL (0.2-1.3); CALCIUM 8.3 mg/dL (8.4-10.2); CARBON DIOXIDE 24 mmol/L (22-30); CHLORIDE 102 mmol/L (98-107); GLUCOSE 93 mg/dL (75-110); POTASSIUM 3.4 mmol/L (3.6-5.0); TOTAL PROTEIN 6.4 g/dL (6.3-8.2)
[2020-03-16 07:43] LABS: BLOOD UREA NITROGEN < 2 mg/dL (7-20)
[2020-03-16] MEDS ORDERED: POTASSIUM CHLORIDE 10 MEQ TABLET.ER PO ONE (09:00)
[2020-03-16] MEDS: CEFEPIME 1 GM/D5W RTU 1 GM/50 ML RTUPB IV SCH (09:16)
[2020-03-16] MEDS: PANTOPRAZOLE SODIUM 40 MG VIAL IV SCH ×2 (09:18→21:35)
--- NOTE | 2020-03-16 10:38 | PDOC PROGRESS REPORT ---
Subjective Progress Note for:: 03/16/20 Subjective:: Patient is still on and off confused Patient's denied any chest pain no short of breath No Fever no chills Reason For Visit: ALCOHOL WITHDRAWAL, ACUTE HEPATITIS,ELEVATED WHITE Physical Exam Vital Signs: Temp Pulse Resp BP Pulse Ox 98.3 F 100 18 133/89 H 96 03/16/20 04:04 03/16/20 04:04 03/16/20 04:04 03/16/20 04:04 03/16/20 04:04 Intake & Output 03/15/20 03/16/20 03/17/20 06:59 06:59 06:59 Intake Total 3876 1946 1267 Output Total 60 Balance 3816 1946 1267 Weight 75.7 kg 76 kg General appearance: PRESENT: no acute distress, well-developed, well-nourished Head exam: PRESENT: atraumatic, normocephalic Eye exam: PRESENT: conjunctiva pink, EOMI, PERRLA. ABSENT: scleral icterus Ear exam: PRESENT: normal external ear exam Mouth exam: PRESENT: moist, tongue midline Neck exam: PRESENT: full ROM. ABSENT: carotid bruit, JVD, lymphadenopathy, thyromegaly Respiratory exam: PRESENT: clear to auscultation [place] Cardiovascular exam: PRESENT: RRR. ABSENT: diastolic murmur, rubs, systolic murmur Pulses: PRESENT: normal dorsalis pedis pul, +2 pedal pulses bilateral Vascular exam: PRESENT: normal capillary refill GI/Abdominal exam: PRESENT: normal bowel sounds, soft. ABSENT: distended, guarding, mass, organolmegaly, rebound, tenderness Rectal exam: PRESENT: deferred Neurological exam: PRESENT: alert, awake, oriented to person. ABSENT: motor sensory deficit Psychiatric exam: PRESENT: appropriate affect, normal mood. ABSENT: homicidal ideation, suicidal ideation Skin exam: PRESENT: dry, intact, warm. ABSENT: cyanosis, rash Results Laboratory Results: 03/16/20 07:00 03/16/20 07:00 03/15/20 03/16/20 03/16/20 10:10 07:00 07:00 WBC 8.0 RBC 3.86 L Hgb 12.7 L Hct 36.3 L MCV 94 MCH 32.8 MCHC 34.9 RDW 14.4 H Plt Count 100 L Seg Neutrophils % 75.5 Sodium 136.5 L 133.5 L Potassium 3.6 3.4 L Chloride 102 102 Carbon Dioxide 27 24 Anion Gap 8 8 BUN < 2 L < 2 L Creatinine 0.71 0.64 Est GFR ( Amer) > 60 > 60 Glucose 111 H 93 Calcium 8.7 8.3 L Magnesium 1.4 L 1.5 L Total Bilirubin 1.3 AST 248 H Alkaline Phosphatase 69 Ammonia Total Protein 6.4 Albumin 3.2 L Lipase 154.6 03/16/20 07:00 WBC RBC Hgb Hct MCV MCH MCHC RDW Plt Count Seg Neutrophils % Sodium Potassium Chloride Carbon Dioxide Anion Gap BUN Creatinine Est GFR ( Amer) Glucose Calcium Magnesium Total Bilirubin AST Alkaline Phosphatase Ammonia < 8.7 L Total Protein Albumin Lipase 03/13/20 14:04 Blood Blood Culture (PCR) - Final Staphylococcus Species 03/13/20 14:04 Blood Blood Culture - Final Staphylococcus Haemolyticus Staphylococcus Epidermidis 03/13/20 14:10 Clean Catch Midstream Urine Culture - Final Urogenital [place] Impressions: Head CT 03/13/20 11:41 IMPRESSION: NORMAL BRAIN CT WITHOUT CONTRAST. EVIDENCE OF ACUTE STROKE: NO. Chest X-Ray 03/13/20 12:41 IMPRESSION: NO ACUTE RADIOGRAPHIC FINDING IN THE CHEST. 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 No hydronephrosis or stones. No perinephric stranding. Assessment & Plan - Diagnosis (1) Alcohol withdrawal syndrome Qualifiers: Complication of substance-induced condition: with delirium Qualified Code(s): F10.231 - Alcohol dependence with withdrawal delirium Is this a current diagnosis for this admission?: Yes (2) Alcoholic hepatitis Qualifiers: Ascites presence: without ascites Qualified Code(s): K70.10 - Alcoholic hepatitis without ascites Is this a current diagnosis for this admission?: Yes (3) Seizure Is this a current diagnosis for this admission?: Yes (4) Altered mental status Qualifiers: Coma depth: [place] coma 13-15 Is this a current diagnosis for this admission?: Yes (5) Encephalopathy Is this a current diagnosis for this admission?: Yes (6) Tachycardia Is this a current diagnosis for this admission?: Yes (7) Leukocytosis Qualifiers: Leukocytosis type: unspecified Qualified Code(s): D72.829 - Elevated white blood cell count, unspecified Is this a current diagnosis for this admission?: Yes - Time Time Spent with patient: 15-24 minutes Level of Care: IMCU Medications reviewed and adjusted accordingly: Yes Anticipated discharge: Home with Homehealth Anticipated DC Timeframe: Other - Plan Summary Plan Summary: We will discontinues the IV antibiotic start on a p.o. Bactrim
[2020-03-16] MEDS: LEVETIRACETAM 500 MG/NACL-ISO 500 MG/100 ML RTUPB IV SCH ×2 (10:47→21:24)
[2020-03-16] MEDS: SULFAMETHOXAZOLE/TRIMETHOPRIM 800-160 MG TABLET PO SCH ×2 (10:48→17:39)
[2020-03-16] MEDS: LORAZEPAM INJ 2 MG/1 ML VIAL IV PRN (11:14)
[2020-03-16] MEDS ORDERED: MAGNESIUM SULFATE/D5W 1 GM/100 ML RTUPB IV ONE (11:30)
[2020-03-16] MEDS ORDERED: LORAZEPAM INJ 2 MG/1 ML VIAL IV PRN (12:12)
[2020-03-16] MEDS: POTASSI CL 40 MEQ/NS 1L 1,000 ML IV PRN (14:29)
[2020-03-16] MEDS: [UNRECOGNIZED DRUG - REMARK] IV SCH ×3 (17:38)
[2020-03-16] MEDS ORDERED: LORAZEPAM INJ 2 MG/1 ML VIAL IV SCH (20:00)
[2020-03-17 07:23] LABS: ABSOLUTE EOSINOPHILS # (AUTO) 0.3 10^3/uL (0.0-0.6); ABSOLUTE MONOCYTES (AUTO) 0.5 10^3/uL (0.1-1.4); ABSOLUTE NEUT (AUTO) 4.1 10^3/uL (1.7-8.2); BASOPHILS % (AUTO) 0.3 % (0-2); EOSINOPHILS % (AUTO) 4.5 % (0-6); HEMATOCRIT 38.6 % (37.9-51.0); HEMOGLOBIN 13.1 g/dL (13.5-17.0); LYMPHOCYTES % (AUTO) 16.6 % (13-45); MEAN CORPUSCULAR HEMOGLOBIN 32.4 pg (27.0-33.4); MEAN CORPUSCULAR VOLUME 95 fl (80-97); MONOCYTES % (AUTO) 8.3 % (3-13); PLATELET COUNT 114 10^3/uL (150-450); RED BLOOD COUNT 4.05 10^6/uL (4.35-5.55); RED CELL DISTRIBUTION WIDTH 14.4 % (11.5-14.0); SEGMENTED NEUTROPHILS % (AUTO) 70.3 % (42-78); TOTAL CELLS COUNTED % (AUTO) 100 %; WHITE BLOOD COUNT 5.8 10^3/uL (4.0-10.5)
[2020-03-17 07:44] LABS: ANION GAP 8 (5-19); BLOOD UREA NITROGEN 3 mg/dL (7-20); CARBON DIOXIDE 26 mmol/L (22-30); CHLORIDE 101 mmol/L (98-107); GLUCOSE 87 mg/dL (75-110); POTASSIUM 3.6 mmol/L (3.6-5.0)
[2020-03-17] MEDS: PANTOPRAZOLE SODIUM 40 MG VIAL IV SCH ×2 (10:07→22:16)
[2020-03-17] MEDS: LEVETIRACETAM 500 MG/NACL-ISO 500 MG/100 ML RTUPB IV SCH ×2 (10:07→22:17)
[2020-03-17] MEDS: SULFAMETHOXAZOLE/TRIMETHOPRIM 800-160 MG TABLET PO SCH ×2 (10:08→17:48)
[2020-03-17] MEDS: THIAMINE HCL 100 MG TABLET PO SCH (10:08)
[2020-03-17] MEDS: POTASSI CL 40 MEQ/NS 1L 1,000 ML IV PRN (10:23)
--- NOTE | 2020-03-17 10:36 | PDOC PROGRESS REPORT ---
Subjective Progress Note for:: 03/17/20 Subjective:: Patient is feeling better No chest pain no short of breath Blood work is stable No seizures activity Reason For Visit: ALCOHOL WITHDRAWAL, ACUTE HEPATITIS,ELEVATED WHITE Physical Exam Vital Signs: Temp Pulse Resp BP Pulse Ox 97.7 F 75 18 152/85 H 100 03/17/20 04:50 03/17/20 07:00 03/17/20 04:50 03/17/20 04:50 03/17/20 04:50 Intake & Output 03/16/20 03/17/20 03/18/20 06:59 06:59 06:59 Intake Total 1945 3369 995 Output Total 550 Balance 1945 2819 995 Weight 76 kg 75.5 kg General appearance: PRESENT: no acute distress, well-developed, well-nourished Head exam: PRESENT: atraumatic, normocephalic Eye exam: PRESENT: conjunctiva pink, EOMI, PERRLA. ABSENT: scleral icterus Ear exam: PRESENT: normal external ear exam Mouth exam: PRESENT: moist, tongue midline Neck exam: PRESENT: full ROM. ABSENT: carotid bruit, JVD, lymphadenopathy, thyromegaly Cardiovascular exam: PRESENT: RRR. ABSENT: diastolic murmur, rubs, systolic murmur Pulses: PRESENT: normal dorsalis pedis pul, +2 pedal pulses bilateral Vascular exam: PRESENT: normal capillary refill GI/Abdominal exam: PRESENT: normal bowel sounds, soft. ABSENT: distended, guarding, mass, organolmegaly, rebound, tenderness Rectal exam: PRESENT: deferred Neurological exam: PRESENT: alert, oriented to person. ABSENT: motor sensory deficit Psychiatric exam: PRESENT: appropriate affect, normal mood. ABSENT: homicidal ideation, suicidal ideation Skin exam: PRESENT: dry, intact, warm. ABSENT: cyanosis, rash Results Laboratory Results: 03/17/20 06:45 03/17/20 06:45 03/17/20 03/17/20 06:45 06:45 WBC 5.8 RBC 4.05 L Hgb 13.1 L Hct 38.6 MCV 95 MCH 32.4 MCHC 34.0 RDW 14.4 H Plt Count 114 L Seg Neutrophils % 70.3 Sodium 134.5 L Potassium 3.6 Chloride 101 Carbon Dioxide 26 Anion Gap 8 BUN 3 L Creatinine 0.64 Est GFR ( Amer) > 60 Glucose 87 Calcium 9.0 03/13/20 14:04 Blood Blood Culture (PCR) - Final Staphylococcus Species 03/13/20 14:04 Blood Blood Culture - Final Staphylococcus Haemolyticus Staphylococcus Epidermidis Impressions: Head CT 03/13/20 11:41 IMPRESSION: NORMAL BRAIN CT WITHOUT CONTRAST. EVIDENCE OF ACUTE STROKE: NO. Chest X-Ray 03/13/20 12:41 IMPRESSION: NO ACUTE RADIOGRAPHIC FINDING IN THE CHEST. 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 No hydronephrosis or stones. No perinephric stranding. Assessment & Plan - Diagnosis (1) Alcohol withdrawal syndrome Qualifiers: Complication of substance-induced condition: with delirium Qualified Code(s): F10.231 - Alcohol dependence with withdrawal delirium Is this a current diagnosis for this admission?: Yes (2) Alcoholic hepatitis Qualifiers: Ascites presence: without ascites Qualified Code(s): K70.10 - Alcoholic hepatitis without ascites Is this a current diagnosis for this admission?: Yes (3) Seizure Is this a current diagnosis for this admission?: Yes (4) Altered mental status Qualifiers: Coma depth: [place] coma 13-15 Is this a current diagnosis for this admission?: Yes (5) Encephalopathy Is this a current diagnosis for this admission?: Yes (6) Tachycardia Is this a current diagnosis for this admission?: Yes (7) Leukocytosis Qualifiers: Leukocytosis type: unspecified Qualified Code(s): D72.829 - Elevated white blood cell count, unspecified Is this a current diagnosis for this admission?: Yes - Time Time Spent with patient: 15-24 minutes Level of Care: IMCU Medications reviewed and adjusted accordingly: Yes Anticipated discharge: Home with Homehealth Anticipated DC Timeframe: Other - Plan Summary Plan Summary: Continues to current medication hopefully discharge very soon
[2020-03-17] MEDS: LORAZEPAM 0.5 MG TABLET PO SCH ×3 (14:59→22:17)
[2020-03-17] MEDS: [UNRECOGNIZED DRUG - REMARK] IV SCH ×3 (17:48)
[2020-03-18 04:59] LABS: BLOOD UREA NITROGEN 3 mg/dL (7-20); CALCIUM 8.9 mg/dL (8.4-10.2); GLUCOSE 102 mg/dL (75-110); POTASSIUM 3.9 mmol/L (3.6-5.0)
[2020-03-18 05:04] LABS: ANION GAP 5 (5-19); CARBON DIOXIDE 27 mmol/L (22-30); CHLORIDE 104 mmol/L (98-107)
[2020-03-18] MEDS: LORAZEPAM 0.5 MG TABLET PO SCH (05:28)
[2020-03-18] MEDS: SULFAMETHOXAZOLE/TRIMETHOPRIM 800-160 MG TABLET PO SCH (09:36)
[2020-03-18] MEDS: THIAMINE HCL 100 MG TABLET PO SCH (09:36)
[2020-03-18] MEDS: PANTOPRAZOLE SODIUM 40 MG VIAL IV SCH (09:36)
--- NOTE | 2020-03-18 09:50 | PDOC DISCHARGE SUMMARY ---
Impression - Admit/DC Date/PCP Admission Date/Primary Care Provider: 03/13/20 13:59 AUREA SANTOYO MD Discharge Date: 03/18/20 - Discharge Diagnosis (1) Alcohol withdrawal syndrome Is this a current diagnosis for this admission?: Yes (2) Alcoholic hepatitis Is this a current diagnosis for this admission?: Yes (3) Seizure Is this a current diagnosis for this admission?: Yes (4) Altered mental status Is this a current diagnosis for this admission?: Yes (5) Encephalopathy Is this a current diagnosis for this admission?: Yes (6) Tachycardia Is this a current diagnosis for this admission?: Yes (7) Leukocytosis Is this a current diagnosis for this admission?: Yes - Additional Information Discharge Activity: Activity As Tolerated Referrals: [facility] [Provider Group] (Office stated that patient will have to make own appointment.) MATT YI MD [NO LOCAL MD] - 03/24/20 2:15 pm AUREA SANTOYO MD [Primary Care Provider] - 03/20/20 2:30 pm Prescriptions: Lorazepam [Ativan 0.5 mg Tablet] 0.5 mg PO Q8 #21 tablet Levetiracetam [Keppra 500 mg Tablet] 500 mg PO Q12 #60 tablet Sulfamethoxazole/Trimethoprim [Septra-Ds 800-160 mg Tablet] 1 tab PO BID #10 tablet Thiamine HCl [Thiamine 100 mg Tablet] 100 mg PO BID #60 tablet Home Medications: Multivitamin [Multiple Vitamins] 1 tab PO DAILY 12/23/19 Pantoprazole Sodium [Protonix [address] Tablet] 40 mg PO Q6AM 03/13/20 Levetiracetam [Keppra 500 mg Tablet] 500 mg PO Q12 #60 tablet 03/18/20 Lorazepam [Ativan 0.5 mg Tablet] 0.5 mg PO Q8 #21 tablet 03/18/20 Sulfamethoxazole/Trimethoprim [Septra-Ds 800-160 mg Tablet] 1 tab PO BID #10 tablet 03/18/20 Thiamine HCl [Thiamine 100 mg Tablet] 100 mg PO BID #60 tablet 03/18/20 History of Present Illiness History of Present Illness: LIBRA ALTAMIRANO is a 65 year old male This 65-year-old male with a significant history of the alcoholism's and alcohol-related seizures activity and very noncompliance recently admitting in the hospital for the same problems and patient was referred to the neurology and GI Patient's supposed to Go to see the psych but did not go and the patient's also went to the neurology but I do not think so patients follow after thatBecause of her noncompliance and continues to drink the alcohol noticed some seizures activity this morning called EMS twice and patients get more confused finally patient was brought to the ER given IM Versed in emergency department patient is alert awake but confused initial CT of the head was negative Patient's white count was elevated and other blood work is all stable except the patient have a elevated LFT which most likely acute hepatitis due to the alcohol-related Patient usually drinks beer according to the daughter he try to cut down he used to drink 6-7 beer per day Discussed with the daughter with this patient however this ongoing problem with alcohol withdrawal and alcoholism with acute hepatitis and a chronic liver disease not a very good prognosis Patient having no seizures activity while in the hospital We decided to admit the patient in the hospital in IMCU start on high-dose IV thiamine 500 mg twice a day for 3 days also start on alcohol withdrawal protocol We will get the IV antibiotic for possible aspirations get a chest x-ray get a blood culture urine culture continues to monitor the patient Hospital Course Hospital Course: This is a 65-year-old MaleSignificant history of the alcoholism's noncompliance basically came because of the seizures activities and continues to drink the alcohol In the emergency department patient's at this point admitting in the hospital from alcohol withdrawal protocol and high-dose thiamine Patient is responds very well patient usually do not do very well with the IV lorazepam but p.o. lorazepam works okay Patient is pretty much stay in the hospital without any seizures activities patient also giving Keppra because of the recurrent seizures activity usually not recommended but this patient usually have a more seizures per family and will already referred to the neurology. Patient's never went to see again refer to the neurology Already seen the GI doctor ADAMARIS for abnormal LFT with most likely alcoholic hepatitis Patient is otherwise doing well we will stop the Lipitor due to the hepatitis alcohol-related and he continues the thiamine multivitamins Patient's alert awake oriented x4 patient's walk in the hallway and patient's p.o. intake is good Discussed with the daughter regarding the patient's current conditions if the patient's continues to drink the alcohol nothing much can be offer patient also referred to the psych as outpatient and neurology as outpatient Physical Exam Vital Signs: Temp Pulse Resp BP Pulse Ox 98.0 F 90 20 111/70 99 03/18/20 03:17 03/18/20 07:00 03/18/20 03:17 03/18/20 03:17 03/18/20 03:17 Intake & Output 03/17/20 03/18/20 03/19/20 06:59 06:59 06:59 Intake Total 3369 4729 Output Total 550 2785 Balance 2819 2009 Weight 75.5 kg 79.6 kg General appearance: PRESENT: no acute distress, well-developed, well-nourished Head exam: PRESENT: atraumatic, normocephalic Eye exam: PRESENT: conjunctiva pink, EOMI, PERRLA. ABSENT: scleral icterus Ear exam: PRESENT: normal external ear exam Mouth exam: PRESENT: moist, tongue midline Neck exam: ABSENT: carotid bruit, JVD, lymphadenopathy, thyromegaly Respiratory exam: PRESENT: clear to auscultation [place]. ABSENT: rales, rhonchi, wheezes Cardiovascular exam: PRESENT: RRR. ABSENT: diastolic murmur, rubs, systolic murmur Pulses: PRESENT: normal dorsalis pedis pul Vascular exam: PRESENT: normal capillary refill GI/Abdominal exam: PRESENT: normal bowel sounds, soft. ABSENT: distended, guarding, mass, organolmegaly, rebound, tenderness Rectal exam: PRESENT: deferred Extremities exam: PRESENT: full ROM. ABSENT: calf tenderness, clubbing, pedal edema Neurological exam: PRESENT: alert, awake, oriented to person, oriented to place, oriented to time, oriented to situation, CN II-XII grossly intact. ABSENT: motor sensory deficit Psychiatric exam: PRESENT: appropriate affect, normal mood. ABSENT: homicidal ideation, suicidal ideation Skin exam: PRESENT: dry, intact, warm. ABSENT: cyanosis, rash Results Laboratory Results: WBC 5.8 10^3/uL (4.0-10.5) 03/17/20 06:45 RBC 4.05 10^6/uL (4.35-5.55) L 03/17/20 06:45 Hgb 13.1 g/dL (13.5-17.0) L 03/17/20 06:45 Hct 38.6 % (37.9-51.0) 03/17/20 06:45 MCV 95 fl (80-97) 03/17/20 06:45 MCH 32.4 pg (27.0-33.4) 03/17/20 06:45 MCHC 34.0 g/dL (32.0-36.0) 03/17/20 06:45 RDW 14.4 % (11.5-14.0) H 03/17/20 06:45 Plt Count 114 10^3/uL (150-450) L 03/17/20 06:45 Lymph % (Auto) 16.6 % (13-45) 03/17/20 06:45 [place] % (Auto) 8.3 % (3-13) 03/17/20 06:45 Eos % (Auto) 4.5 % (0-6) 03/17/20 06:45 Baso % (Auto) 0.3 % (0-2) 03/17/20 06:45 Absolute Neuts (auto) 4.1 10^3/uL (1.7-8.2) 03/17/20 06:45 Absolute Lymphs (auto) 1.0 10^3/uL (0.5-4.7) 03/17/20 06:45 Absolute Monos (auto) 0.5 10^3/uL (0.1-1.4) 03/17/20 06:45 Absolute Eos (auto) 0.3 10^3/uL (0.0-0.6) 03/17/20 06:45 Absolute Basos (auto) 0.0 10^3/uL (0.0-0.2) 03/17/20 06:45 Total Counted 100 03/13/20 11:35 Seg Neutrophils % 70.3 % (42-78) 03/17/20 06:45 Seg Neuts % (Manual) 88 % (42-78) H 03/13/20 11:35 Lymphocytes % (Manual) 6 % (13-45) L 03/13/20 11:35 Monocytes % (Manual) 6 % (3-13) 03/13/20 11:35 Eosinophils % (Manual) 0 % (0-6) 03/13/20 11:35 Basophils % (Manual) 0 % (0-2) 03/13/20 11:35 Abs Neuts (Manual) 16.7 10^3/uL (1.7-8.2) H 03/13/20 11:35 Abs Lymphs (Manual) 1.1 10^3/uL (0.5-4.7) 03/13/20 11:35 Abs Monocytes (Manual) 1.1 10^3/uL (0.1-1.4) 03/13/20 11:35 Absolute Eos (Manual) 0.0 10^3/uL (0.0-0.6) 03/13/20 11:35 Abs Basophils (Manual) 0.0 10^3/uL (0.0-0.2) 03/13/20 11:35 Toxic Granulation SLIGHT 03/13/20 11:35 Toxic Vacuolation PRESENT 03/13/20 11:35 Platelet Comment ADEQUATE 03/13/20 11:35 Anisocytosis SLIGHT 03/13/20 11:35 Sodium 135.6 mmol/L (137-145) L 03/18/20 04:29 Potassium 3.9 mmol/L (3.6-5.0) 03/18/20 04:29 Chloride 104 mmol/L (98-107) 03/18/20 04:29 Carbon Dioxide 27 mmol/L (22-30) 03/18/20 04:29 Anion Gap 5 (5-19) 03/18/20 04:29 BUN 3 mg/dL (7-20) L 03/18/20 04:29 Creatinine 0.82 mg/dL (0.52-1.25) 03/18/20 04:29 Est GFR ( Amer) > 60 (>60) 03/18/20 04:29 Est GFR (MDRD) Non-Af > 60 (>60) 03/18/20 04:29 Glucose 102 mg/dL (75-110) 03/18/20 04:29 Calcium 8.9 mg/dL (8.4-10.2) 03/18/20 04:29 Magnesium 1.5 mg/dL (1.6-2.3) L 03/16/20 07:00 Total Bilirubin 1.3 mg/dL (0.2-1.3) 03/16/20 07:00 Direct Bilirubin 0.0 mg/dL (0.0-0.4) 03/16/20 07:00 Neonat Total Bilirubin Not Reportable 03/16/20 07:00 Neonat Direct Bilirubin Not Reportable 03/16/20 07:00 Neonat Indirect Bili Not Reportable 03/16/20 07:00 AST 248 U/L (17-59) H 03/16/20 07:00 ALT 79 U/L (<50) H 03/16/20 07:00 Alkaline Phosphatase 69 U/L (38-126) 03/16/20 07:00 Ammonia < 8.7 umol/L (9-33) L 03/16/20 07:00 Total Protein 6.4 g/dL (6.3-8.2) 03/16/20 07:00 Albumin 3.2 g/dL (3.5-5.0) L 03/16/20 07:00 Lipase 154.6 U/L (23-300) 03/16/20 07:00 Urine Color YELLOW 03/13/20 14:10 Urine Appearance SLIGHTLY-CLOUDY 03/13/20 14:10 Urine pH 5.0 (5.0-9.0) 03/13/20 14:10 Ur Specific [place] 1.025 03/13/20 14:10 Urine Protein 30 mg/dL (NEGATIVE) H 03/13/20 14:10 Urine Glucose (UA) NEGATIVE mg/dL (NEGATIVE) 03/13/20 14:10 Urine Ketones TRACE mg/dL (NEGATIVE) H 03/13/20 14:10 Urine Blood NEGATIVE (NEGATIVE) 03/13/20 14:10 Urine Nitrite NEGATIVE (NEGATIVE) 03/13/20 14:10 Urine Bilirubin NEGATIVE (NEGATIVE) 03/13/20 14:10 Urine Urobilinogen 4.0 mg/dL (<2.0) H 03/13/20 14:10 Ur Leukocyte Esterase NEGATIVE (NEGATIVE) 03/13/20 14:10 Urine WBC (Auto) 3 /HPF 03/13/20 14:10 Urine RBC (Auto) 1 /HPF 03/13/20 14:10 U Hyaline Cast (Auto) 15 /LPF 03/13/20 14:10 Squamous Epi Cells Auto 1 /HPF 03/13/20 14:10 Urine Mucus (Auto) RARE /LPF 03/13/20 14:10 Urine Ascorbic Acid 40 (NEGATIVE) H 03/13/20 14:10 Salicylates < 1.0 mg/dL (2.0-20.0) L 03/13/20 11:35 Urine Opiates Screen NEGATIVE 03/13/20 14:10 Urine Methadone Screen NEGATIVE 03/13/20 14:10 Acetaminophen < 10 ug/mL (10-30) L 03/13/20 11:35 Ur Barbiturates Screen NEGATIVE 03/13/20 14:10 Ur Phencyclidine Scrn NEGATIVE 03/13/20 14:10 Ur Amphetamines Screen NEGATIVE 03/13/20 14:10 U Benzodiazepines Scrn UNCONFIRMED POSITIVE 03/13/20 14:10 Urine Cocaine Screen NEGATIVE 03/13/20 14:10 U Marijuana (THC) Screen NEGATIVE 03/13/20 14:10 Serum Alcohol < 10 mg/dL (NONE DETECTED) 03/13/20 11:35 Hepatitis A IgM Ab Negative (Negative) 03/13/20 14:04 Hep Bs Antigen Negative (Negative) 03/13/20 14:04 Hep B Core IgM Ab Negative (Negative) 03/13/20 14:04 Hepatitis C Antibody <0.1 s/co ratio (0.0-0.9) 03/13/20 14:04 Impressions: Head CT 03/13/20 11:41 IMPRESSION: NORMAL BRAIN CT WITHOUT CONTRAST. EVIDENCE OF ACUTE STROKE: NO. Chest X-Ray 03/13/20 12:41 IMPRESSION: NO ACUTE RADIOGRAPHIC FINDING IN THE CHEST. 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 No hydronephrosis or stones. No perinephric stranding. Plan Time Spent: Greater than 30 Minutes - Follow neurology as outpatients we will recheck the Chem-7 patient's blood pressure in the office 1 week to readjust the medications Stroke Is this a Stroke Patient?: No Acute Heart Failure - Is this a Heart Failure Patient?: No
[2020-03-18] MEDS: LEVETIRACETAM 500 MG/NACL-ISO 500 MG/100 ML RTUPB IV SCH (09:55)
[2020-03-18] MEDS ORDERED: ENOXAPARIN SODIUM INJ 40 MG/0.4 ML DISP.SYRIN SUBCUT SCH (10:00)
[2020-03-18 13:01] VITALS: BP 143/83
== END 2020-03-18 13:20 | disposition home health service (06) | DRG 897 ==
LOC: ER 11:21 → EH 13:59 → 5 16:36
PROVIDERS: ADMIT Family Medicine; ATTEND Family Medicine
DX: F10.231 Alcohol dependence with withdrawal delirium (principal); K70.10 Alcoholic hepatitis without ascites; F10.288 Alcohol dependence with other alcohol-induced disorder; R56.9 Unspecified convulsions; G31.2 Degeneration of nervous system due to alcohol; E78.5 Hyperlipidemia, unspecified; K70.9 Alcoholic liver disease, unspecified; I10 Essential (primary) hypertension; F32.9 Major depressive disorder, single episode, unspecified; F17.200 Nicotine dependence, unspecified, uncomplicated; D72.829 Elevated white blood cell count, unspecified; Z91.19 Patient's noncompliance with other medical treatment and regimen; Y90.0 Blood alcohol level of less than 20 mg/100 ml
CPT/HCPCS: 36415; 70450; 71045; 74177; 80048; 80053; 80074; 80076; 80307; 81001; 82140; 83690; 83735; 85025; 87040; 87077; 87086; 87150; 87186; 93005; 93010; 96374; 96375; 99285; C9113; J0692; J0696; J1953; J2060; J3411; J3475; J3480; J3490; J7030; J7050